=== PATIENT | male | born 1950 | race Caucasian/White ===

== ENCOUNTER 2018-01-26 15:37 | Inpatient (IN) | payer OTHER, MEDICARE ==
[2018-01-26] MEDS ORDERED: SODIUM CHLORIDE 0.9% 1000 ML INFUS.BAG IV ONE ×2 (15:47→18:21)
[2018-01-26] MEDS ORDERED: ALBUTEROL SO4 2.5/IPRATROPIUM 0.5 INH SOL 3 ML VIAL.NEB. NEB ONE ×6 (15:47→17:55)
--- NOTE | 2018-01-26 16:08 | PDOC ---
History of Present Illness - General Chief Complaint: Cold Symptoms Stated Complaint: coughing Time Seen by Provider: 01/26/18 15:45 - History of Present Illness Initial Comments: 01/26/18 16:07 The patient is a 67 year old male with a PMH of sarcoid (not currently on immunosuppressants/steroids), comes to the ED c/o cough and shortness of breath. Patient notes a 2-3 day h/o non-productive cough. Today, when he was trying to medicinal plant picker his grandson from the ground he felt short of breath prompting him to visit his PMD. Denies any chest pain, lightheadedness, diaphoresis, palpitations. No h/o YODER on exertion. Notes 8 year old grandson had bronchitis last week. Notes he was evaluated by his PMD Dr. Bruce earlier today who sent the patient to the ED for further evaluation and to r/o PNA. The patient denies abdominal pain, diarrhea/constipation, nausea/vomiting, dysuria/hematuria, numbness/tingling. Allergy: Sulfa Surgical: none reported Social: former smoker, denies other toxic habits PMD: Dr. Bruce Freelance Digital Project Manager: Dr. Palmer Past History - Past Medical History Allergies/Adverse Reactions: Allergies Allergy/AdvReac Type Severity Reaction Status Date / Time Sulfa (Sulfonamide Allergy Verified 01/26/18 16:38 Antibiotics) Home Medications: Ambulatory Orders NK [No Known Home Medication] 01/26/18 Anemia: No Asthma: No Cancer: No Cardiac Disorders: No CVA: No COPD: Yes (Hx of Sarcoidosis) CHF: No Dementia: No Diabetes: No GI Disorders: No Disorders: No HTN: No Hypercholesterolemia: No Liver Disease: No Seizures: No Thyroid Disease: No - Surgical History Abdominal Surgery: No Appendectomy: Yes Cardiac Surgery: No Cholecystectomy: No Lung Surgery: No Neurologic Surgery: No (CERVICAL CYST REMOVED) Orthopedic Surgery: Yes (Right Rotator Cuff Repair 04/2012-HAS BEEN ON ABX IN PAST-LARGE AMOUNT OF) - Suicide/Smoking/Psychosocial Hx Smoking History: Former smoker Have you smoked in the past 12 months: No If you are a former smoker, when did you quit?: 1996 Information on smoking cessation initiated: No Hx Alcohol Use: Yes Drug/Substance Use Hx: No Substance Use Type: Alcohol Hx Substance Use Treatment: No Review of Systems - Review of Systems Constitutional: No: Chills, Fever HEENTM: No: Blurred Vision, Double Vision Respiratory: Yes: Cough, Shortness of Breath. No: Orthopnea, Hemoptysis Cardiac (ROS): No: Chest Pain, Lightheadedness, Palpitations, Syncope ABD/GI: No: Constipated, Diarrhea, Nausea, Vomiting *Physical Exam - Vital Signs Last Vital Signs Temp Pulse Resp BP Pulse Ox 99.1 F 113 H 26 H 152/78 88 L 01/26/18 15:37 01/26/18 15:37 01/26/18 15:37 01/26/18 15:37 01/26/18 15:37 - Physical Exam General Appearance: Yes: Nourished, Appropriately Dressed HEENT: positive: Normal Voice, Hearing Grossly Normal Neck: positive: Trachea midline, Supple Respiratory/Chest: positive: Wheezing. negative: Respiratory Distress, Accessory Muscle Use Cardiovascular: positive: S1, S2 Gastrointestinal/Abdominal: positive: Soft. negative: Tender Extremity: positive: Normal Capillary Refill, Normal Inspection Integumentary: positive: Normal Color, Dry, Warm Neurologic: positive: Fully Oriented, Alert Heart Score/ECG Review - ECG Impressions Comment:: 01/26/18 19:05 Sinus Tach 102, no LICO/STD/TWI, good R wave progression V1-V6. Non-ischemic ECG ED Treatment Course - LABORATORY CBC & Chemistry Diagram: 01/30/18 08:00 01/30/18 08:00 Medical Decision Making - Medical Decision Making 01/26/18 16:08 67 year old male with a PMH of sarcoid c/o cough and dypsnea. SpO2 80's @ presentation. DDx include PNA, sarcoid flare, viral URI, less likely PE, ACS. Will obtain basic labs, blood cultures, lactic acid, CXR. Reassess ECG non-ischemic as documented in ECG section of EMR. 01/26/18 17:56 SpO2 93% on 2L Other VS stable S/p 2 Duo Nebs, scattered wheezes Will give additional Duo Neb + 125 solumedrol CXR shows increased nodular densities c/w sarcoidosis, no active consolidation, infiltrate. Case d/w patient's PMD agrees with admission 01/26/18 18:05 CBC shows no leukocytosis, CMP mild hyponatremia (131) - will monitor. VSS. UA pending Hospitalist paged for admission Patient admitted in inpatient hospitalist service for further evaluation. Clinical Impression: acute hypoxemic respiratory failure possibly 2/2 to sarcoid flare *DC/Admit/Observation/Transfer Diagnosis at time of Disposition: Cough - Discharge Dispostion Condition at time of disposition: Fair Decision to Admit order: Yes - Referrals - Patient Instructions - Post Discharge Activity
[2018-01-26] MEDS ORDERED: ACETAMINOPHEN INJECTION 100 ML IVPB ONE (16:23)
--- NOTE | 2018-01-26 16:26 | PDOC ---
Attending Attestation - Resident Resident Name: Tracey Arshad - ED Attending Attestation I have performed the following: I have examined & evaluated the patient, The case was reviewed & discussed with the resident, I agree w/resident's findings & plan, Exceptions are as noted - HPI HPI: 01/26/18 16:23 67 yo male with h/o sarcoid, not on any current medications, here today from [facility] pcp office for sob that began last pm. fever chills. no cp no n/v. does have mild sob. in office was noted to be febrile 101, hypoxic 85% on RA. given one duoneb and sent to ed for evaluation/ admission. - Physicial Exam PE: 01/26/18 16:25 awake alert lungs with bilat exp wheezing. shallow breath, no good airflow. heart reg tachycardia. no mrg. abd soft nt nd. ext wwp. no edema . no calf tenderness. nuero alert oriented x 3. - Medical Decision Making 01/26/18 16:26 pt with wheezing sob hypoxia and fever. differential pna, effusion, flu, bronchospasm from bronchitis. plan labs cultures. septic workup fever control duonebs. fluids cxr admit.
[2018-01-26] MEDS ORDERED: ACETAMINOPHEN 1000 MG/100 ML VIAL (NON FORMULARY) IVPB ONE (16:27)
[2018-01-26 16:39] LABS: BASO % 0.4 % (0-2.0); EOS % 0.2 % (0-4.5); HEMATOCRIT 43.8 % (35.4-49); LYMPH % 4.9 % (8-40); MCH 31.3 pg (25.7-33.7); MCHC 34.3 g/dl (32.0-35.9); MEAN CELL VOLUME 91.2 fl (80-96); MEAN PLT VOLUME 7.8 fl (7.5-11.1); MONO % 8.7 % (3.8-10.2); NEUT % 85.8 % (42.8-82.8); PLATELET COUNT 232 K/MM3 (134-434); RDW 13.1 % (11.9-15.9); WHITE BLOOD COUNT 10.6 K/mm3 (4.0-10.8)
[2018-01-26 16:51] LABS: ACTIVATED PTT 27.3 SECONDS (25.2-36.5)
[2018-01-26 16:55] LABS: INR 1.35 (0.82-1.09)
[2018-01-26 17:00] LABS: ALBUMIN 4.1 g/dl (3.5-5.0); ALK PHOS 67 U/L (32-92); ANION GAP 7 MMOL/L (8-16); BILIRUBIN,TOTAL 1.7 mg/dl (0.2-1.0); BLOOD UREA NITROGEN 25 mg/dl (7-18); CALCIUM 8.5 mg/dl (8.4-10.2); CHLORIDE 98 mmol/L (98-107); CO2 26 mmol/L (22-28); CREATININE 1.1 mg/dl (0.6-1.3); GLUCOSE,RANDOM 139 mg/dl (74-106); SGOT/AST 27 U/L (10-42); SGPT/ALT 23 U/L (10-40); SODIUM 131 mmol/L (136-145); TOT PROT 7.3 g/dl (6.4-8.3)
[2018-01-26] MEDS ORDERED: VANCOMYCIN 1 GRAM (PRE-DOCKED) 1,000 MG/250 ML BAG IVPB ONE (17:29)
[2018-01-26] MEDS ORDERED: PIPERACILLIN/TAZOB 3.375 GM 3.375 GM in DEXTROSE 5%-WATER - 50 ML IVPB ONE (17:30)
[2018-01-26] MEDS ORDERED: PIPERACILLIN/TAZOBACTAM 3.375 GM VIAL IVPB ONE (17:30)
[2018-01-26] MEDS ORDERED: VANCOMYCIN 1,000 MG VIAL (RESTRICTED TO ID ONLY) ONE (17:30)
[2018-01-26] MEDS ORDERED: methylPREDNISolone NA SUCC 125 MG/2 ML VIAL ONE (17:55)
[2018-01-26] MEDS ORDERED: methylPREDNISolone NA SUCC 125 MG/2 ML VIAL IVPUSH ONE (17:55)
[2018-01-26 18:35] LABS: VENOUS PC02 49.6 mmHg (38-52); VENOUS PH 7.35 (7.32-7.42); VENOUS PO2 30.9 mmHg (28-48)
[2018-01-26 19:41] LABS: URINE APPEARANCE Clear; URINE BILIRUBIN Negative (NEGATIVE); URINE COLOR Yellow; URINE GLUCOSE (UA) Negative (NEGATIVE); URINE KETONE 1+ (NEGATIVE); URINE LEUK ESTERASE Negative (NEGATIVE); URINE NITRITE Negative (NEGATIVE); URINE PROTEIN Trace (NEGATIVE); URINE UROBILINOGEN 0.2 (0.2-1.0)
[2018-01-26] MEDS: HEPARIN NA (PORCINE) 5,000 UNITS/ML 1ML VIAL SQ SCH (22:18)
[2018-01-26 23:52] VITALS: BMI 23.8
--- NOTE | 2018-01-27 01:00 | HP ---
CHIEF COMPLAINT: Cough and SOB PCP: Dr. Bruce Pediatric Hospitalist: Dr. Palmer HISTORY OF PRESENT ILLNESS: 67 year old male with a PMH significant for sarcoidosis and MRSA infection presented to the ED with SOB and cough. He started developing a cough a 2-3 days ago since being exposed to his 8 year old grandson who was just treated for confirmed pneumonia. His cough was non-productive and he doesn't think he had a fever. He has never had pneumonia in the past, he did receive the pna vaccine a few years ago. He was recently diagnosed with sarcoidosis and is followed by toe pounder Dr. Palmer. He went to see his PCP Dr. Bruce today who sent him to the ED. Upon arrival at the ED, temperature was 102 and O2 sat was 88%. He was given a dose of Vancomycin and Zosyn, Solumedrol, supplemental O2@ 2LPM, and received 2 nebulizer treatments. His O2 sat improved to 93% and he reports feeling somewhat better than when he was admitted. WBC and lactic acid WNL. Flu swab negative. CXR shows degenerative changes from one year ago. Tachycardia on ECG but otherwise unremarkable for ischemia. Denies dizziness, syncope, chest pain, palpitations, n/v/d. Recent Travel: No PAST MEDICAL HISTORY: Sarcoidosis MRSA infections PAST SURGICAL HISTORY: Right foot surgery for MRSA infection that had invaded the bone Social History: Retired, former construction stonemason. Smoking: Former, quit 30 years ago Alcohol: On weekends Drugs: Denies Family History: Father: Heart disease, in his 80s Mother: DM, age 77 Allergies Sulfa (Sulfonamide Antibiotics) Allergy (Verified 01/26/18 16:38) HOME MEDICATIONS: Home Medications Medication Instructions Recorded NK [No Known Home Medication] 01/26/18 REVIEW OF SYSTEMS CONSTITUTIONAL: (+) weight change, lost 20 lbs in the past year which he attributes to drinking 2 Tbs of apple cider vinegar before dinner. Absent: fever, chills, diaphoresis, generalized weakness, malaise, loss of appetite HEENT: Absent: rhinorrhea, nasal congestion, throat pain, throat swelling, difficulty swallowing, mouth swelling, ear pain, eye pain, visual changes CARDIOVASCULAR: Absent: chest pain, syncope, palpitations, irregular heart rate, lightheadedness , peripheral edema RESPIRATORY: (+) cough, shortness of breath Absent:dyspnea with exertion, orthopnea, wheezing, stridor, hemoptysis GASTROINTESTINAL: Absent: abdominal pain, abdominal distension, nausea, vomiting, diarrhea, constipation, melena, hematochezia GENITOURINARY: Absent: dysuria, frequency, urgency, hesitancy, hematuria, flank pain, genital pain MUSCULOSKELETAL: Absent: myalgia, arthralgia, joint swelling, back pain, neck pain SKIN: Absent: rash, itching, pallor HEMATOLOGIC/IMMUNOLOGIC: Absent: easy bleeding, easy bruising, lymphadenopathy, frequent infections ENDOCRINE: Absent: unexplained weight gain, unexplained weight loss, heat intolerance, cold intolerance NEUROLOGIC: Absent: headache, focal weakness or paresthesias, dizziness, unsteady gait, seizure, mental status changes, bladder or bowel incontinence PSYCHIATRIC: Absent: anxiety, depression, suicidal or homicidal ideation, hallucinations. PHYSICAL EXAMINATION Vital Signs - 24 hr 01/26/18 01/26/18 01/26/18 15:37 15:45 16:16 Temperature 99.1 F 102.5 F H Pulse Rate 113 H Pulse Rate [ Apical] Respiratory 26 H Rate Blood Pressure 152/78 Blood Pressure [Right Arm] O2 Sat by Pulse 88 L 96 Oximetry (%) 01/26/18 01/26/18 01/26/18 18:15 19:30 19:42 Temperature 99.7 F H 98.9 F Pulse Rate 108 H 109 H Pulse Rate [ 93 H 109 H Apical] Respiratory 22 H 20 16 Rate Blood Pressure 154/65 Blood Pressure 131/63 150/76 [Right Arm] O2 Sat by Pulse 94 L 92 L 93 L Oximetry (%) 01/26/18 19:59 Temperature 98.9 F Pulse Rate 108 H Pulse Rate [ Apical] Respiratory 20 Rate Blood Pressure 154/65 Blood Pressure [Right Arm] O2 Sat by Pulse 94 L Oximetry (%) GENERAL: Awake, alert, and fully oriented, in no acute distress. HEAD: Normal with no signs of trauma. EYES: Pupils equal, round and reactive to light, extraocular movements intact, sclera anicteric, conjunctiva clear. No lid lag. EARS, NOSE, THROAT: +NC, nares patent, oropharynx clear without exudates. Moist mucous membranes. NECK: Normal range of motion, supple without lymphadenopathy, JVD, or masses. LUNGS: Rhonchorous breath sounds, expiratory wheze, intermittent cough HEART: Tachycardic rate and regular rhythm, normal S1 and S2 without murmur, rub or gallop. ABDOMEN: Soft, nontender, not distended, normoactive bowel sounds, no guarding, no rebound, no masses. No hepatomegaly or splenomegaly. MUSCULOSKELETAL: Normal range of motion at all joints. No bony deformities or tenderness. No CVA tenderness. UPPER EXTREMITIES: 2+ pulses, warm, well-perfused. No cyanosis. No clubbing. No peripheral edema. LOWER EXTREMITIES: 2+ pulses, warm, well-perfused. No calf tenderness. No peripheral edema. NEUROLOGICAL: No facial droop, tongue midline Normal speech. Normal gait. PSYCHIATRIC: Cooperative. Good eye contact. Appropriate mood and affect. SKIN: Warm, dry, normal turgor, no rashes or lesions noted, normal capillary refill. Laboratory Results - last 24 hr 01/26/18 01/26/18 01/26/18 16:16 16:16 16:16 WBC 10.6 RBC 4.80 Hgb 15.0 Hct 43.8 MCV 91.2 MCH 31.3 MCHC 34.3 RDW 13.1 Plt Count 232 MPV 7.8 Absolute Neuts (auto) 9.2 Neutrophils % 85.8 H Lymphocytes % 4.9 L Monocytes % 8.7 Eosinophils % 0.2 Basophils % 0.4 PT with INR 15.0 H INR 1.35 H PTT (Actin FS) 27.3 VBG pH 7.35 POC VBG pCO2 49.6 POC VBG pO2 30.9 Mixed VBG HCO3 27.2 H Sodium Potassium Chloride Carbon Dioxide Anion Gap BUN Creatinine Creat Clearance w eGFR Random Glucose Lactic Acid Calcium Total Bilirubin AST ALT Alkaline Phosphatase Total Protein Albumin Urine Color Urine Appearance Urine pH Ur Specific [place] Urine Protein Urine Glucose (UA) Urine Ketones Urine Blood Urine Nitrite Urine Bilirubin Urine Urobilinogen Ur Leukocyte Esterase 01/26/18 01/26/18 01/26/18 16:16 16:16 19:11 WBC RBC Hgb Hct MCV MCH MCHC RDW Plt Count MPV Absolute Neuts (auto) Neutrophils % Lymphocytes % Monocytes % Eosinophils % Basophils % PT with INR INR PTT (Actin FS) VBG pH POC VBG pCO2 POC VBG pO2 Mixed VBG HCO3 Sodium 131 L Potassium 4.0 Chloride 98 Carbon Dioxide 26 Anion Gap 7 L BUN 25 H Creatinine 1.1 Creat Clearance w eGFR > 60 Random Glucose 139 H Lactic Acid 1.3 Calcium 8.5 Total Bilirubin 1.7 H AST 27 ALT 23 Alkaline Phosphatase 67 Total Protein 7.3 Albumin 4.1 Urine Color Yellow Urine Appearance Clear Urine pH 5.0 Ur Specific [place] 1.015 Urine Protein Trace Urine Glucose (UA) Negative Urine Ketones 1+ H Urine Blood Negative Urine Nitrite Negative Urine Bilirubin Negative Urine Urobilinogen 0.2 Ur Leukocyte Esterase Negative ECG Sinus Tachycardia Vent rate 102 QT/QTc 322/419 CXR Since 12/17/16 there are increased right perihilar and right infrahilar markings. There is a normal heart, prominent knob and coarse lung changes with some nodular densities. There are degenerative changes with wedging. ASSESSMENT/PLAN: 67 year old male with a PMH significant for sarcoidosis and MRSA infection presented to the ED with SOB and cough. Patient admitted for antibiotic treatment of PNA. CAP -Will start Ceftriaxone 1 gm IV and Azithromycin 500 mg IV now, and 2nd dose HS -Prednisone 60 mg qday -Duonebs QID and PRN -on 2LPM -Blood culture pending FEN --PO intake adequate --Electrolytes replete as indicated --Regular Diet DVT Prophylaxis --Heparin SQ Dispo: pt currently requires further inpatient care. FULL CODE Visit type - Emergency Visit Emergency Visit: Yes ED Registration Date: 01/26/18 Care time: The patient presented to the Emergency Department on the above date and was hospitalized for further evaluation of their emergent condition. - New Patient This patient is new to me today: No - Critical Care Critical Care patient: No
[2018-01-27] MEDS ORDERED: CEFTRIAXONE 1 GM/50 ML BAG IVPB ONE (02:10)
[2018-01-27] MEDS ORDERED: AZITHROMYCIN IVPB 500 MG/250 ML BAG IVPB ONE (02:11)
[2018-01-27] MEDS ORDERED: guaiFENesin/CODEINE 10 ML UNIT-DOSE CUPS PO ONE (04:48)
[2018-01-27] MEDS: HEPARIN NA (PORCINE) 5,000 UNITS/ML 1ML VIAL SQ SCH ×3 (05:20→22:01)
[2018-01-27] MEDS: ALBUTEROL SO4 2.5/IPRATROPIUM 0.5 INH SOL 3 ML VIAL.NEB. NEB SCH ×4 (08:28→19:59)
--- NOTE | 2018-01-27 08:28 | PN ---
Physical Exam: SUBJECTIVE: Patient seen and examined, reports ongoing cough and generalized weakness, tmax of 102.5 at 0800 OBJECTIVE: Patient is a 67 y/o male with a past medical history of sarcoidosis , patent was admitted from the emergency department for sepsis and pna Vital Signs Period Temp Pulse Resp BP Sys/Davis Pulse Ox Last 24 Hr 98.9 F-102.5 F 93-113 16-26 131-157/63-78 88-96 GENERAL: The patient is awake, alert, and fully oriented, in no acute distress. HEAD: Normal with no signs of trauma. EYES: PERRL, extraocular movements intact, sclera anicteric, conjunctiva clear. No ptosis. ENT: Ears normal, nares patent, oropharynx clear without exudates, moist mucous membranes. NECK: Trachea midline, full range of motion, supple. LUNGS: Breath sounds equal, clear to auscultation bilaterally, no wheezes, no crackles, no accessory muscle use. HEART: Regular rate and rhythm, S1, S2 without murmur, rub or gallop. ABDOMEN: Soft, nontender, nondistended, normoactive bowel sounds, no guarding, no rebound, no hepatosplenomegaly, no masses. EXTREMITIES: 2+ pulses, warm, well-perfused, no edema. NEUROLOGICAL: Cranial nerves II through XII grossly intact. Normal speech, gait not observed. PSYCH: Normal mood, normal affect. SKIN: Warm, dry, normal turgor, no rashes or lesions noted Laboratory Results - last 24 hr 01/26/18 01/26/18 01/26/18 16:16 16:16 16:16 WBC 10.6 RBC 4.80 Hgb 15.0 Hct 43.8 MCV 91.2 MCH 31.3 MCHC 34.3 RDW 13.1 Plt Count 232 MPV 7.8 Absolute Neuts (auto) 9.2 Neutrophils % 85.8 H Lymphocytes % 4.9 L Monocytes % 8.7 Eosinophils % 0.2 Basophils % 0.4 PT with INR 15.0 H INR 1.35 H PTT (Actin FS) 27.3 VBG pH 7.35 POC VBG pCO2 49.6 POC VBG pO2 30.9 Mixed VBG HCO3 27.2 H Sodium Potassium Chloride Carbon Dioxide Anion Gap BUN Creatinine Creat Clearance w eGFR Random Glucose Lactic Acid Calcium Total Bilirubin AST ALT Alkaline Phosphatase Total Protein Albumin Urine Color Urine Appearance Urine pH Ur Specific [place] Urine Protein Urine Glucose (UA) Urine Ketones Urine Blood Urine Nitrite Urine Bilirubin Urine Urobilinogen Ur Leukocyte Esterase 01/26/18 01/26/18 01/26/18 16:16 16:16 19:11 WBC RBC Hgb Hct MCV MCH MCHC RDW Plt Count MPV Absolute Neuts (auto) Neutrophils % Lymphocytes % Monocytes % Eosinophils % Basophils % PT with INR INR PTT (Actin FS) VBG pH POC VBG pCO2 POC VBG pO2 Mixed VBG HCO3 Sodium 131 L Potassium 4.0 Chloride 98 Carbon Dioxide 26 Anion Gap 7 L BUN 25 H Creatinine 1.1 Creat Clearance w eGFR > 60 Random Glucose 139 H Lactic Acid 1.3 Calcium 8.5 Total Bilirubin 1.7 H AST 27 ALT 23 Alkaline Phosphatase 67 Total Protein 7.3 Albumin 4.1 Urine Color Yellow Urine Appearance Clear Urine pH 5.0 Ur Specific [place] 1.015 Urine Protein Trace Urine Glucose (UA) Negative Urine Ketones 1+ H Urine Blood Negative Urine Nitrite Negative Urine Bilirubin Negative Urine Urobilinogen 0.2 Ur Leukocyte Esterase Negative Active Medications Generic Name Dose Route Start Last Admin Trade Name Satinderq PRN Reason Stop Dose Admin Albuterol/Ipratropium 1 amp 01/27/18 08:00 Duoneb - NEB RQID [facility] Heparin Sodium (Porcine) 5,000 unit 01/26/18 22:00 01/27/18 05:20 Heparin - SQ 5,000 unit TID [facility] Administration Azithromycin 500 mg in 250 mls @ 250 mls/hr 01/27/18 22:00 Zithromax 500mg Ivpb (Pre-Docked) IVPB [facility] Ceftriaxone Sodium 1 gm in 50 mls @ 200 mls/hr 01/27/18 22:00 Rocephin 1gm Ivpb (Pre-Docked) IVPB [facility] Protocol Prednisone 60 mg 01/27/18 10:00 Deltasone - PO DAILY [facility] Microbiology 01/27/18 10:45 Legionella Antigen - Final Urine For Antigen Detection Streptococcus pneumoniae Antigen (M - Final, negative 01/26/18 16:16 Influenza Types A,B Antigen - Final, negative Nasopharyngeal Swab - Final IMAGING CXR: increased right perihlar and infrahilar markings ASSESSMENT/PLAN: 1)pulm CAP sarcoid -continue Ceftriaxone 1 gm IV and Azithromycin 500 mg IV, urine antigens negative, pending blood and urine cultures now, and 2nd dose HS -start solumedrol with taper as appropriate -Duonebs QID and PRN - pending ct of chest - appreciate pulmonary input 2) sepsis - secondary to pna, trend wbc and fever curve - follow blood and urine antigens FEN --PO intake adequate --Electrolytes replete as indicated --Regular Diet DVT Prophylaxis --Heparin SQ Dispo: pt currently requires further inpatient care. FULL CODE Visit type - Emergency Visit Emergency Visit: Yes ED Registration Date: 01/26/18 Care time: The patient presented to the Emergency Department on the above date and was hospitalized for further evaluation of their emergent condition. - New Patient This patient is new to me today: Yes Date on this admission: 01/27/18 - Critical Care Critical Care patient: No - Discharge Referral Referred to [facility] Med P.C.: No
[2018-01-27 08:48] LABS: HEMATOCRIT 42.1 % (35.4-49); HEMOGLOBIN 14.4 GM/dl (11.7-16.9); MCH 31.5 pg (25.7-33.7); MCHC 34.1 g/dl (32.0-35.9); MEAN CELL VOLUME 92.3 fl (80-96); MEAN PLT VOLUME 8.1 fl (7.5-11.1); PLATELET COUNT 232 K/MM3 (134-434); RBC 4.57 M/mm3 (4.00-5.60); RDW 13.4 % (11.9-15.9)
[2018-01-27 08:54] LABS: ANION GAP 6 MMOL/L (8-16); BLOOD UREA NITROGEN 22 mg/dl (7-18); CALCIUM 8.6 mg/dl (8.4-10.2); CHLORIDE 104 mmol/L (98-107); CO2 26 mmol/L (22-28); GLUCOSE,RANDOM 168 mg/dl (74-106); POTASSIUM 4.2 mmol/L (3.5-5.1); SODIUM 136 mmol/L (136-145)
[2018-01-27] MEDS: methylPREDNISolone NA SUCC 40 MG/1 ML VIAL IVPUSH SCH ×3 (09:47→20:04)
--- NOTE | 2018-01-27 09:55 | PN ---
Progress Note (short form) - Note Progress Note: PULMONARY IMP ACUTE HYPOXEMIC RESPIRATORY AILURE PNEUMONIA ,POSSIBLE VIRAL SARCOID PLAN IV STEROIDS INHALED BRONCHODILATORS O2 CULTURES LEGIONELLA URINARY ANTIGEN CHEST CT ANTITUSSIVES DR WEISS Problem List - Problems (1) Acute hypoxemic respiratory failure Code(s): J96.01 - ACUTE RESPIRATORY FAILURE WITH HYPOXIA (2) Sarcoid Code(s): D86.9 - SARCOIDOSIS, UNSPECIFIED (3) Pneumonia Code(s): J18.9 - PNEUMONIA, UNSPECIFIED ORGANISM
[2018-01-27] MEDS ORDERED: AZITHROMYCIN IVPB 500 MG in DEXTROSE 5%-WATER - 250 ML IVPB SCH (10:00)
[2018-01-27] MEDS ORDERED: ACETAMINOPHEN 1000 MG/100 ML VIAL (NON FORMULARY) IVPB ONE (10:00)
[2018-01-27] MEDS ORDERED: CEFTRIAXONE 1 MG in DEXTROSE 5%-WATER - 50 ML IVPB SCH (10:00)
[2018-01-27] MEDS ORDERED: predniSONE 20 MG TABLET (UD) PO SCH (10:00)
--- NOTE | 2018-01-27 11:11 | CONS ---
DATE OF CONSULTATION: 01/27/2018 REFERRING PHYSICIAN: Tati Steele MD HISTORY: The patient is a 67-year-old white male with a past medical history of sarcoidosis diagnosed approximately 15 years ago by lymph node biopsy, history of borderline diabetes, cervical cysts, history of tobacco use quit in 1996 admitted to [facility] with the complaint of a 2- to 3- history of nonproductive cough, shortness of breath, and dyspnea on exertion. On the day of admission, the patient was trying to chicken picker his grandson. He started feeling increasing shortness of breath, cough, and bronchospasm. He presented to the emergency room with above. In the ER, he was found to be in moderate respiratory failure. He was noted to be febrile. He was placed on antibiotics, IV steroids, bronchodilators, and transferred to the medical floor for further management. Of note, his 8-year-old grandson had bronchitis approximately a week ago. He denies any hemoptysis. He denies any chest pain, nausea, vomiting, or diaphoresis. There is no history of occupational exposure to chemicals or fumes. There is no history of recent travel. PAST MEDICAL HISTORY: Includes sarcoidosis and borderline diabetes. REVIEW OF SYSTEMS: Positive shortness of breath, positive cough, positive chest congestion, positive fever, positive chills. No nausea, no vomiting, no abdominal pain. CURRENT MEDICATIONS: Include Solu-Medrol, acetaminophen, Zithromax, ceftriaxone, hepatitis subcutaneous, and DuoNeb. PHYSICAL EXAMINATION: General: The patient is a well-developed, well-nourished male awake and alert, dyspneic. Vital Signs: Temperature 102.3, O2 saturation 89% on nasal cannula 2 L, blood pressure 157/75, respiratory rate is 19. HEENT: Normocephalic and atraumatic. Neck: Supple. Heart: Regular S1, S2. Chest: Bilateral wheezes throughout. Abdomen: Soft. Bowel sounds positive. Extremities: No cyanosis or edema. LABORATORIES: WBC 13, hemoglobin 14.4, hematocrit 42.1 with a platelet count of 232,000. INR 1.35. Venous blood gas 7.35, PCO2 of 49, PO2 of 30, BUN 22, creatinine 1. Chest x-ray reveals increased perihilar markings on the right and some nodular densities bilaterally. Influenza screen negative. IMPRESSION: 1. Acute hypoxemic respiratory failure secondary to pneumonia. 2. Rule out acute viral bronchitis. 3. Sarcoidosis. PLAN: IV steroids. Inhaled bronchodilators. Supplemental O2. Antibiotic therapy. CT scan of the chest. Sputum for culture and sensitivity as well as blood culture and sensitivity. RADHA WEISS M.D. MINISTERIO/[id number]
--- NOTE | 2018-01-27 12:18 | EKG ---
Test Reason : Blood Pressure : / mmHG Vent. Rate : 102 BPM Atrial Rate : 102 BPM P-R Int : 174 ms QRS Dur : 080 ms QT Int : 322 ms P-R-T Axes : 078 079 070 degrees QTc Int : 419 ms POOR DATA QUALITY, INTERPRETATION MAY BE ADVERSELY AFFECTED SINUS TACHYCARDIA OTHERWISE NORMAL ECG WHEN COMPARED WITH ECG OF 21-OCT-2011 13:45, NO SIGNIFICANT CHANGE WAS FOUND Confirmed by TARAS AKINS, JUAN ([id number]) on 01/27/2018 12:18:29 PM Referred By: MD RIVER Confirmed By:JUAN GRAJEDA MD
[2018-01-27] MEDS: CEFTRIAXONE 1 GM/50 ML BAG IVPB SCH (13:39)
[2018-01-27] MEDS ORDERED: ACETAMINOPHEN 325 MG TABLET (FP) PO PRN (14:23)
[2018-01-27] MEDS ORDERED: AZITHROMYCIN IVPB 500 MG/250 ML BAG IVPB SCH (22:00)
[2018-01-27] MEDS: guaiFENesin/CODEINE 10 ML UNIT-DOSE CUPS PO PRN (22:00)
[2018-01-27] MEDS ORDERED: CEFTRIAXONE 1 GM/50 ML BAG IVPB SCH ×2 (22:00)
[2018-01-28] MEDS: methylPREDNISolone NA SUCC 40 MG/1 ML VIAL IVPUSH SCH ×4 (02:21→21:10)
[2018-01-28] MEDS: HEPARIN NA (PORCINE) 5,000 UNITS/ML 1ML VIAL SQ SCH ×3 (06:09→21:10)
--- NOTE | 2018-01-28 07:48 | PN ---
Progress Note, Physician History of Present Illness: PULMONARY ALERT,FEELING BETTER,LESS CONGESTED,LESS COUGH - Current Medication List Current Medications: Active Medications Acetaminophen (Tylenol -) 650 mg PO Q4H PRN PRN Reason: FEVER Albuterol/Ipratropium (Duoneb -) 1 amp NEB RQID [facility] Last Admin: 01/27/18 19:59 Dose: 1 amp Guaifenesin/Codeine Phosphate (Robitussin Ac -) 10 ml PO Q8H PRN PRN Reason: COUGH Last Admin: 01/27/18 22:00 Dose: 10 ml Heparin Sodium (Porcine) (Heparin -) 5,000 unit SQ TID [facility] Last Admin: 01/28/18 06:09 Dose: 5,000 unit Azithromycin (Zithromax 500mg Ivpb (Pre-Docked)) 500 mg in 250 mls @ 250 mls/ hr IVPB DAILY [facility] Ceftriaxone Sodium (Rocephin 1gm Ivpb (Pre-Docked)) 1 gm in 50 mls @ 100 mls/ hr IVPB DAILY [facility]; Protocol Last Admin: 01/27/18 13:39 Dose: 100 mls/hr Methylprednisolone Sodium Succinate (Solu-Medrol -) 40 mg IVPUSH Q6H-IV [facility] Last Admin: 01/28/18 02:21 Dose: 40 mg - Objective Vital Signs: Vital Signs Temperature 98.2 F 01/28/18 06:00 Pulse Rate 89 01/28/18 06:00 Respiratory Rate 20 01/28/18 06:00 Blood Pressure 140/75 01/28/18 06:00 O2 Sat by Pulse Oximetry (%) 95 01/28/18 06:00 Constitutional: Yes: Well Nourished, Calm Eyes: Yes: WNL HENT: Yes: WNL Neck: Yes: WNL Cardiovascular: Yes: Regular Rate and Rhythm, S1, S2 Respiratory: Yes: Wheezes (LESS WHEEZES BILATERALLY) Gastrointestinal: Yes: Normal Bowel Sounds, Soft Extremities: Yes: WNL Edema: No Labs: CBC, BMP - ....Imaging Cat Scan: Report Reviewed, Image Reviewed Problem List - Problems (1) Acute hypoxemic respiratory failure Code(s): J96.01 - ACUTE RESPIRATORY FAILURE WITH HYPOXIA (2) Sarcoid Code(s): D86.9 - SARCOIDOSIS, UNSPECIFIED (3) Pneumonia Code(s): J18.9 - PNEUMONIA, UNSPECIFIED ORGANISM Assessment/Plan IMP ACUTE HYPOXEMIC RESPIRATORY AILURE BILATERAL PNEUMONIA SARCOID PLAN IV STEROIDS SAME DOSE INHALED BRONCHODILATORS O2 ANTITUSSIVES DR WEISS Problem List - Problems (1) Acute hypoxemic respiratory failure Code(s): J96.01 - ACUTE RESPIRATORY FAILURE WITH HYPOXIA (2) Sarcoid Code(s): D86.9 - SARCOIDOSIS, UNSPECIFIED (3) Pneumonia Code(s): J18.9 - PNEUMONIA, UNSPECIFIED ORGANISM
[2018-01-28] MEDS: ALBUTEROL SO4 2.5/IPRATROPIUM 0.5 INH SOL 3 ML VIAL.NEB. NEB SCH ×4 (08:00→21:10)
--- NOTE | 2018-01-28 08:13 | PN ---
Physical Exam: SUBJECTIVE: Patient seen and examined, reports feeling less short of breath, does report persistent cough OBJECTIVE: Patient is a 67 y/o male with a past medical history of sarcoidosis, patent was admitted from the emergency department for sepsis and pna Vital Signs Period Temp Pulse Resp BP Sys/Davis Pulse Ox Last 24 Hr 97.9 F-102.3 F 86-102 19-22 114-140/44-75 90-96 GENERAL: The patient is awake, alert, and fully oriented, in no acute distress. HEAD: Normal with no signs of trauma. EYES: PERRL, extraocular movements intact, sclera anicteric, conjunctiva clear. No ptosis. ENT: Ears normal, nares patent, oropharynx clear without exudates, moist mucous membranes. NECK: Trachea midline, full range of motion, supple. LUNGS: Breath sounds equal, course rhonchi to apexes, crackles to bases, no wheezes, no accessory muscle use. HEART: Regular rate and rhythm, S1, S2 without murmur, rub or gallop. ABDOMEN: Soft, nontender, nondistended, normoactive bowel sounds, no guarding, no rebound, no hepatosplenomegaly, no masses. EXTREMITIES: 2+ pulses, warm, well-perfused, no edema. NEUROLOGICAL: Cranial nerves II through XII grossly intact. Normal speech, gait not observed. PSYCH: Normal mood, normal affect. SKIN: Warm, dry, normal turgor, no rashes or lesions noted Laboratory Results - last 24 hr 01/27/18 01/27/18 07:55 07:55 WBC 13.0 H RBC 4.57 Hgb 14.4 Hct 42.1 MCV 92.3 MCH 31.5 MCHC 34.1 RDW 13.4 Plt Count 232 MPV 8.1 Sodium 136 Potassium 4.2 Chloride 104 Carbon Dioxide 26 Anion Gap 6 L BUN 22 H Creatinine 1.0 Creat Clearance w eGFR > 60 Random Glucose 168 H D Calcium 8.6 Active Medications Generic Name Dose Route Start Last Admin Trade Name Freq PRN Reason Stop Dose Admin Acetaminophen 650 mg 01/27/18 14:23 Tylenol - PO Q4H PRN FEVER Albuterol/Ipratropium 1 amp 01/27/18 08:00 01/27/18 19:59 Duoneb - NEB 1 amp RQID [facility] Administration Guaifenesin/Codeine Phosphate 10 ml 01/27/18 09:56 01/27/18 22:00 Robitussin Ac - PO 10 ml Q8H PRN Administration COUGH Heparin Sodium (Porcine) 5,000 unit 01/26/18 22:00 01/28/18 06:09 Heparin - SQ 5,000 unit TID [facility] Administration Azithromycin 500 mg in 250 mls @ 250 mls/hr 01/28/18 10:00 Zithromax 500mg Ivpb (Pre-Docked) IVPB DAILY [facility] Ceftriaxone Sodium 1 gm in 50 mls @ 100 mls/hr 01/27/18 13:30 01/27/18 13:39 Rocephin 1gm Ivpb (Pre-Docked) IVPB 100 mls/hr DAILY [facility] Administration Protocol Methylprednisolone Sodium Succinate 40 mg 01/27/18 09:45 01/28/18 02:21 Solu-Medrol - IVPUSH 40 mg Q6H-IV [facility] Administration Microbiology 01/26/18 19:11 Urine - Urine Clean Catch Urine Culture - Final NO GROWTH OBTAINED 01/26/18 16:26 Blood - Peripheral Venous Blood Culture - Preliminary NO GROWTH OBTAINED AFTER 24 HOURS, INCUBATION TO CONTINUE FOR 4 DAYS. 01/26/18 16:16 Blood - Peripheral Venous Blood Culture - Preliminary NO GROWTH OBTAINED AFTER 24 HOURS, INCUBATION TO CONTINUE FOR 4 DAYS. 01/27/18 10:45 Urine For Antigen Detection Legionella Antigen - Final, negative 01/27/18 10:45 Urine For Antigen Detection Streptococcus pneumoniae Antigen (M - Final, negative 01/26/18 16:16 Nasopharyngeal Swab Influenza Types A,B Antigen - Final 01/26/18 16:16 Nasopharyngeal Swab - Final IMAGING CXR: increased right perihlar and infrahilar markings ct of chest: Consolidation/atelectasis in the left lower lobe, Right lower lobe consolidation/atelectasis, bilateral pulmonary nodules measuring 1 cm ASSESSMENT/PLAN: 1)pulm CAP sarcoid -continue Ceftriaxone 1 gm IV and Azithromycin 500 mg IV day 2 - wheezing resolved, will decrease solumedrol to tid appropriate - Duonebs QID and PRN - pulmonary consulted and following 2) sepsis - secondary to pna,Low-grade temperature noted, leukocytosis is noted however patient is on steroids, continue to trend - Urine and blood culture negative, Pending sputum culture FEN --PO intake adequate --Electrolytes replete as indicated --Regular Diet DVT Prophylaxis --Heparin SQ Dispo: pt currently requires further inpatient care. FULL CODE Visit type - Emergency Visit Emergency Visit: Yes ED Registration Date: 01/26/18 Care time: The patient presented to the Emergency Department on the above date and was hospitalized for further evaluation of their emergent condition. - New Patient This patient is new to me today: No - Critical Care Critical Care patient: No - Discharge Referral Referred to [facility] Med P.C.: No
[2018-01-28 08:45] LABS: HEMATOCRIT 39.5 % (35.4-49); HEMOGLOBIN 13.5 GM/dl (11.7-16.9); LYMPH % 4.1 % (8-40); MCH 31.9 pg (25.7-33.7); MCHC 34.2 g/dl (32.0-35.9); MEAN CELL VOLUME 93.2 fl (80-96); MEAN PLT VOLUME 8.2 fl (7.5-11.1); MONO % 2.6 % (3.8-10.2); NEUT % 93.3 % (42.8-82.8); PLATELET COUNT 244 K/MM3 (134-434); RBC 4.24 M/mm3 (4.00-5.60); RDW 13.2 % (11.9-15.9)
[2018-01-28 08:55] LABS: ALBUMIN 3.3 g/dl (3.5-5.0); ALK PHOS 55 U/L (32-92); ANION GAP 6 MMOL/L (8-16); BILIRUBIN,TOTAL 0.7 mg/dl (0.2-1.0); BLOOD UREA NITROGEN 29 mg/dl (7-18); CALCIUM 8.5 mg/dl (8.4-10.2); CHLORIDE 105 mmol/L (98-107); CO2 25 mmol/L (22-28); CREATININE 0.9 mg/dl (0.6-1.3); GLUCOSE,RANDOM 209 mg/dl (74-106); MAGNESIUM 2.2 mg/dL (1.8-2.4); PHOSPHOROUS 2.7 mg/dl (2.5-4.6); POTASSIUM 4.1 mmol/L (3.5-5.1); SGOT/AST 33 U/L (10-42); SGPT/ALT 25 U/L (10-40); SODIUM 136 mmol/L (136-145); TOT PROT 6.4 g/dl (6.4-8.3)
[2018-01-28] MEDS: CEFTRIAXONE 1 GM/50 ML BAG IVPB SCH (10:08)
[2018-01-28] MEDS: AZITHROMYCIN IVPB 500 MG/250 ML BAG IVPB SCH (10:09)
[2018-01-28] MEDS: LACTOBACILLUS ACIDOPHILUS 1 TABLET PO SCH (13:00)
[2018-01-28] MEDS: guaiFENesin/CODEINE 10 ML UNIT-DOSE CUPS PO PRN (21:28)
[2018-01-29] MEDS: methylPREDNISolone NA SUCC 40 MG/1 ML VIAL IVPUSH SCH ×4 (03:00→21:50)
[2018-01-29] MEDS: HEPARIN NA (PORCINE) 5,000 UNITS/ML 1ML VIAL SQ SCH ×3 (06:28→21:33)
[2018-01-29] MEDS: ALBUTEROL SO4 2.5/IPRATROPIUM 0.5 INH SOL 3 ML VIAL.NEB. NEB SCH ×4 (08:44→21:33)
[2018-01-29 08:48] LABS: BASO % 0.1 % (0-2.0); EOS % 0.1 % (0-4.5); HEMATOCRIT 38.6 % (35.4-49); HEMOGLOBIN 13.1 GM/dl (11.7-16.9); LYMPH % 4.5 % (8-40); MCH 31.5 pg (25.7-33.7); MEAN CELL VOLUME 92.6 fl (80-96); MEAN PLT VOLUME 8.1 fl (7.5-11.1); MONO % 3.7 % (3.8-10.2); NEUT % 91.6 % (42.8-82.8); PLATELET COUNT 245 K/MM3 (134-434); RBC 4.17 M/mm3 (4.00-5.60); RDW 13.2 % (11.9-15.9); WHITE BLOOD COUNT 12.4 K/mm3 (4.0-10.8)
[2018-01-29 09:06] LABS: ANION GAP 8 MMOL/L (8-16); BLOOD UREA NITROGEN 28 mg/dl (7-18); CALCIUM 8.5 mg/dl (8.4-10.2); CHLORIDE 104 mmol/L (98-107); CO2 25 mmol/L (22-28); CREATININE 0.9 mg/dl (0.6-1.3); GLUCOSE,RANDOM 203 mg/dl (74-106); MAGNESIUM 2.2 mg/dL (1.8-2.4); PHOSPHOROUS 3.3 mg/dl (2.5-4.6); POTASSIUM 4.4 mmol/L (3.5-5.1); SODIUM 137 mmol/L (136-145)
[2018-01-29] MEDS: AZITHROMYCIN IVPB 500 MG/250 ML BAG IVPB SCH (09:34)
[2018-01-29] MEDS: CEFTRIAXONE 1 GM/50 ML BAG IVPB SCH (09:34)
[2018-01-29] MEDS: LACTOBACILLUS ACIDOPHILUS 1 TABLET PO SCH (09:34)
[2018-01-29] MEDS ORDERED: methylPREDNISolone NA SUCC 40 MG/1 ML VIAL IVPUSH SCH (11:15)
--- NOTE | 2018-01-29 17:08 | PN ---
Progress Note (short form) - Note Progress Note: PULMONARY States breathing is better but still with cough and wheezing. No fevers or chills. Vital Signs Period Temp Pulse Resp BP Sys/Davis Pulse Ox Last 24 Hr 97.9 F-98.4 F 81-101 17-20 146-167/67-85 92-96 Gen: NAD at rest Heart: RRR Lung: scattered rhonchi, wheezes Abd: soft, nontender Ext: no edema CBC, BMP 01/29/18 07:20 01/29/18 07:20 Active Medications Acetaminophen (Tylenol -) 650 mg PO Q4H PRN PRN Reason: FEVER Albuterol/Ipratropium (Duoneb -) 1 amp NEB RQID [facility] Last Admin: 01/29/18 12:00 Dose: 1 amp Guaifenesin/Codeine Phosphate (Robitussin Ac -) 10 ml PO Q8H PRN PRN Reason: COUGH Last Admin: 01/28/18 21:28 Dose: 10 ml Heparin Sodium (Porcine) (Heparin -) 5,000 unit SQ TID [facility] Last Admin: 01/29/18 14:48 Dose: 5,000 unit Azithromycin (Zithromax 500mg Ivpb (Pre-Docked)) 500 mg in 250 mls @ 250 mls/ hr IVPB DAILY [facility] Last Admin: 01/29/18 09:34 Dose: 250 mls/hr Ceftriaxone Sodium (Rocephin 1gm Ivpb (Pre-Docked)) 1 gm in 50 mls @ 100 mls/ hr IVPB DAILY [facility]; Protocol Last Admin: 01/29/18 09:34 Dose: 100 mls/hr Lactobacillus Acidophilus (Bacid -) 1 tab PO DAILY [facility] Last Admin: 01/29/18 09:34 Dose: 1 tab Methylprednisolone Sodium Succinate (Solu-Medrol -) 40 mg IVPUSH Q8H [facility] Last Admin: 01/29/18 14:49 Dose: 40 mg A/P Acute Hypoxic Respiratory Failure Acute COPD Exacerbation Sarcoidosis Pneumonia - agree with medrol taper - inhaled bronchodilators standing and prn - O2 to keep SpO2 >90% - continue antibiotics - when ready for discharge will need to check ambulatory SpO2 on room air to assess for home O2 - DVT prophylaxis
--- NOTE | 2018-01-29 23:10 | PN ---
Physical Exam: SUBJECTIVE: Patient seen and examined. OBJECTIVE: Vital Signs Period Temp Pulse Resp BP Sys/Davis Pulse Ox Last 24 Hr 97.8 F-98.2 F 70-90 18-20 152-167/62-85 92-96 GENERAL: The patient is awake, alert, and fully oriented, in no acute distress. LUNGS: Diffuse mild expiratory wheezing HEART: Regular rate and rhythm, S1, S2 ABDOMEN: Soft, nontender, nondistended EXTREMITIES: 2+ pulses, warm, well-perfused, no edema. NEUROLOGICAL: Cranial nerves II through XII grossly intact. Normal speech. Laboratory Results - last 24 hr 01/29/18 01/29/18 07:20 07:20 WBC 12.4 H RBC 4.17 Hgb 13.1 Hct 38.6 MCV 92.6 MCH 31.5 MCHC 34.0 RDW 13.2 Plt Count 245 MPV 8.1 Absolute Neuts (auto) 11.3 Neutrophils % 91.6 H Lymphocytes % 4.5 L Monocytes % 3.7 L Eosinophils % 0.1 D Basophils % 0.1 D Sodium 137 Potassium 4.4 Chloride 104 Carbon Dioxide 25 Anion Gap 8 BUN 28 H Creatinine 0.9 Creat Clearance w eGFR > 60 Random Glucose 203 H Calcium 8.5 Phosphorus 3.3 D Magnesium 2.2 Active Medications Generic Name Dose Route Start Last Admin Trade Name Freq PRN Reason Stop Dose Admin Acetaminophen 650 mg 01/27/18 14:23 Tylenol - PO Q4H PRN FEVER Albuterol/Ipratropium 1 amp 01/27/18 08:00 01/29/18 21:33 Duoneb - NEB 1 amp RQID [facility] Administration Guaifenesin/Codeine Phosphate 10 ml 01/27/18 09:56 01/28/18 21:28 Robitussin Ac - PO 10 ml Q8H PRN Administration COUGH Heparin Sodium (Porcine) 5,000 unit 01/26/18 22:00 01/29/18 21:33 Heparin - SQ 5,000 unit TID [facility] Administration Azithromycin 500 mg in 250 mls @ 250 mls/hr 01/28/18 10:00 01/29/18 09:34 Zithromax 500mg Ivpb (Pre-Docked) IVPB 250 mls/hr DAILY [facility] Administration Ceftriaxone Sodium 1 gm in 50 mls @ 100 mls/hr 01/27/18 13:30 01/29/18 09:34 Rocephin 1gm Ivpb (Pre-Docked) IVPB 100 mls/hr DAILY [facility] Administration Protocol Lactobacillus Acidophilus 1 tab 01/28/18 12:30 01/29/18 09:34 Bacid - PO 1 tab DAILY [facility] Administration Methylprednisolone Sodium Succinate 40 mg 01/29/18 14:38 01/29/18 21:50 Solu-Medrol - IVPUSH 40 mg Q8H [facility] Administration ASSESSMENT/PLAN 67 year-old male with a PMH significant for sarcoidosis admitted for sepsis secondary to pneumonia. Community acquired pneumonia --CT chest: LLL and RLL pneumonia --afebrile, mild leukocytosis --continue IV steroids --continue azithro and ceftriaxone --continue duonebs Sarcoidosis --stable Pulmonary nodules --needs outpatient followup DVT prophylaxis: subq heparin Dispo: continues to require inpatient care. Full code. Visit type - Emergency Visit Emergency Visit: Yes ED Registration Date: 01/26/18 Care time: The patient presented to the Emergency Department on the above date and was hospitalized for further evaluation of their emergent condition. - New Patient This patient is new to me today: Yes Date on this admission: 01/29/18 - Critical Care Critical Care patient: No
[2018-01-30] MEDS: HEPARIN NA (PORCINE) 5,000 UNITS/ML 1ML VIAL SQ SCH ×3 (06:32→21:08)
[2018-01-30] MEDS: methylPREDNISolone NA SUCC 40 MG/1 ML VIAL IVPUSH SCH ×2 (06:32→21:09)
[2018-01-30] MEDS: ALBUTEROL SO4 2.5/IPRATROPIUM 0.5 INH SOL 3 ML VIAL.NEB. NEB SCH ×4 (08:14→21:09)
[2018-01-30] MEDS: LACTOBACILLUS ACIDOPHILUS 1 TABLET PO SCH (09:15)
[2018-01-30] MEDS: CEFTRIAXONE 1 GM/50 ML BAG IVPB SCH (09:15)
--- NOTE | 2018-01-30 09:25 | PN ---
Physical Exam: SUBJECTIVE: Patient seen and examined. Pt reports feeling better, c/o intermittent dry cough, denies cp, sob, palpitations, abdominal pain, N/V/D or urinary symptoms. OBJECTIVE: Vital Signs Period Temp Pulse Resp BP Sys/Davis Pulse Ox Last 24 Hr 97.8 F-98.2 F 66-90 18-18 147-157/62-72 92-97 GENERAL: The patient is awake, alert, and fully oriented, in no acute distress. HEAD: Normal with no signs of trauma. EYES: PERRL, extraocular movements intact, sclera anicteric, conjunctiva clear. No ptosis. ENT: Ears normal, nares patent, oropharynx clear without exudates, moist mucous membranes. NECK: Trachea midline, full range of motion, supple. LUNGS: Breath sounds equal, clear to auscultation bilaterally, no wheezes, no crackles, no accessory muscle use. HEART: Regular rate and rhythm, S1, S2 without murmur, rub or gallop. ABDOMEN: Soft, nontender, nondistended, normoactive bowel sounds, no guarding, no rebound, no hepatosplenomegaly, no masses. EXTREMITIES: 2+ pulses, warm, well-perfused, no edema. NEUROLOGICAL: Cranial nerves II through XII grossly intact. Normal speech, gait not observed. PSYCH: Normal mood, normal affect. SKIN: Warm, dry, normal turgor, no rashes or lesions noted Active Medications Generic Name Dose Route Start Last Admin Trade Name Freq PRN Reason Stop Dose Admin Acetaminophen 650 mg 01/27/18 14:23 Tylenol - PO Q4H PRN FEVER Albuterol/Ipratropium 1 amp 01/27/18 08:00 01/30/18 08:14 Duoneb - NEB 1 amp RQID [facility] Administration Guaifenesin/Codeine Phosphate 10 ml 01/27/18 09:56 01/28/18 21:28 Robitussin Ac - PO 10 ml Q8H PRN Administration COUGH Heparin Sodium (Porcine) 5,000 unit 01/26/18 22:00 01/30/18 06:32 Heparin - SQ 5,000 unit TID [facility] Administration Azithromycin 500 mg in 250 mls @ 250 mls/hr 01/28/18 10:00 01/29/18 09:34 Zithromax 500mg Ivpb (Pre-Docked) IVPB 250 mls/hr DAILY [facility] Administration Ceftriaxone Sodium 1 gm in 50 mls @ 100 mls/hr 01/27/18 13:30 01/30/18 09:15 Rocephin 1gm Ivpb (Pre-Docked) IVPB 100 mls/hr DAILY [facility] Administration Protocol Lactobacillus Acidophilus 1 tab 01/28/18 12:30 01/30/18 09:15 Bacid - PO 1 tab DAILY [facility] Administration Methylprednisolone Sodium Succinate 40 mg 01/29/18 14:38 01/30/18 06:32 Solu-Medrol - IVPUSH 40 mg Q8H [facility] Administration IMAGING CXR: increased right perihlar and infrahilar markings CT of chest: Consolidation/atelectasis in the left lower lobe, Right lower lobe consolidation/atelectasis, bilateral pulmonary nodules measuring 1 cm Microbiology 01/26/18 16:26 Blood Culture - Preliminary Blood - Peripheral Venous NO GROWTH OBTAINED AFTER 72 HOURS, INCUBATION TO CONTINUE FOR 2 DAYS. 01/26/18 16:16 Blood Culture - Preliminary Blood - Peripheral Venous NO GROWTH OBTAINED AFTER 72 HOURS, INCUBATION TO CONTINUE FOR 2 DAYS. ASSESSMENT/PLAN: This is a 67 year-old male with a PMH significant for COPD, ex- smoker and Sarcoidosis, admitted for sepsis secondary to pneumonia. *Community acquired pneumonia -CT chest: LLL and RLL pneumonia - afebrile with leukocytosis trending down - pul following -will cont on Azithro and ceftriaxone - will cont on Neb tx and cough med - Influenza/ Legionella and BC - neg - Sputum culture pending * COPD exacerbation -on Solumedrol * Hyperglycemia, no reported hx of DM, may due to steroid use - will check Hgb Alc - FS AC& HS *HX of Sarcoidosis-stable *Pulmonary nodules -needs outpatient followup DVT prophylaxis: Heparin SQ Dispo: Continues to require inpatient care. Full code. Visit type - Emergency Visit Emergency Visit: Yes ED Registration Date: 01/26/18 Care time: The patient presented to the Emergency Department on the above date and was hospitalized for further evaluation of their emergent condition. - New Patient This patient is new to me today: Yes Date on this admission: 01/30/18 - Critical Care Critical Care patient: No
[2018-01-30 09:31] LABS: BASO % 0.1 % (0-2.0); HEMATOCRIT 39.2 % (35.4-49); HEMOGLOBIN 12.8 GM/dl (11.7-16.9); LYMPH % 6.6 % (8-40); MCH 30.4 pg (25.7-33.7); MCHC 32.7 g/dl (32.0-35.9); MEAN CELL VOLUME 92.9 fl (80-96); MEAN PLT VOLUME 8.4 fl (7.5-11.1); MONO % 4.2 % (3.8-10.2); NEUT % 89.1 % (42.8-82.8); PLATELET COUNT 262 K/MM3 (134-434); RBC 4.22 M/mm3 (4.00-5.60); RDW 13.6 % (11.9-15.9); WHITE BLOOD COUNT 11.9 K/mm3 (4.0-10.8)
[2018-01-30 09:43] LABS: ALBUMIN 2.9 g/dl (3.5-5.0); ALK PHOS 53 U/L (32-92); ANION GAP 10 MMOL/L (8-16); BILIRUBIN,TOTAL 0.7 mg/dl (0.2-1.0); BLOOD UREA NITROGEN 28 mg/dl (7-18); CALCIUM 8.3 mg/dl (8.4-10.2); CHLORIDE 103 mmol/L (98-107); CO2 24 mmol/L (22-28); CREATININE 0.8 mg/dl (0.6-1.3); GLUCOSE,RANDOM 233 mg/dl (74-106); MAGNESIUM 2.2 mg/dL (1.8-2.4); POTASSIUM 4.2 mmol/L (3.5-5.1); SGOT/AST 30 U/L (10-42); SGPT/ALT 43 U/L (10-40); SODIUM 137 mmol/L (136-145); TOT PROT 5.5 g/dl (6.4-8.3)
[2018-01-30] MEDS: AZITHROMYCIN IVPB 500 MG/250 ML BAG IVPB SCH (10:12)
[2018-01-30] MEDS: FAMOTIDINE 20 MG TABLET PO SCH ×2 (12:04→21:08)
--- NOTE | 2018-01-30 15:19 | PN ---
Progress Note (short form) - Note Progress Note: PULMONARY Breathing continues to improve but still with some cough and wheezing. No fevers or chills. Vital Signs Period Temp Pulse Resp BP Sys/Davis Pulse Ox Last 24 Hr 97.8 F-98.4 F 66-91 18-18 147-166/62-70 93-97 Gen: NAD at rest Heart: RRR Lung: scattered rhonchi, wheezes Abd: soft, nontender Ext: no edema CBC, BMP 01/30/18 08:00 01/30/18 08:00 Active Medications Acetaminophen (Tylenol -) 650 mg PO Q4H PRN PRN Reason: FEVER Albuterol/Ipratropium (Duoneb -) 1 amp NEB RQID [facility] Last Admin: 01/30/18 12:47 Dose: 1 amp Famotidine (Pepcid -) 20 mg PO BID [facility] Last Admin: 01/30/18 12:04 Dose: 20 mg Heparin Sodium (Porcine) (Heparin -) 5,000 unit SQ TID [facility] Last Admin: 01/30/18 14:49 Dose: 5,000 unit Azithromycin (Zithromax 500mg Ivpb (Pre-Docked)) 500 mg in 250 mls @ 250 mls/ hr IVPB DAILY [facility] Last Admin: 01/30/18 10:12 Dose: 250 mls/hr Ceftriaxone Sodium (Rocephin 1gm Ivpb (Pre-Docked)) 1 gm in 50 mls @ 100 mls/ hr IVPB DAILY [facility]; Protocol Last Admin: 01/30/18 09:15 Dose: 100 mls/hr Lactobacillus Acidophilus (Bacid -) 1 tab PO DAILY [facility] Last Admin: 01/30/18 09:15 Dose: 1 tab Methylprednisolone Sodium Succinate (Solu-Medrol -) 40 mg IVPUSH BID [facility] A/P Acute Hypoxic Respiratory Failure Acute COPD Exacerbation Sarcoidosis Pneumonia - continue medrol taper, can likely change to PO prednisone 40mg daily and taper as outpt - inhaled bronchodilators standing and prn - O2 to keep SpO2 >90% - continue antibiotics - check ambulatory SpO2 on room air to assess for home O2 - DVT prophylaxis
[2018-01-30] MEDS ORDERED: INSULIN (NOVOLOG) ASPART 100 UNITS/ML 10ML VIAL ONE (21:43)
[2018-01-30] MEDS: INSULIN SLIDING SCALE (NOVOLOG) 1 VIAL SQ SCH (21:47)
[2018-01-31] MEDS: HEPARIN NA (PORCINE) 5,000 UNITS/ML 1ML VIAL SQ SCH (05:59)
[2018-01-31] MEDS: INSULIN SLIDING SCALE (NOVOLOG) 1 VIAL SQ SCH ×2 (06:50→11:48)
[2018-01-31 07:59] VITALS: BP 149/70; PULSE 61; TEMP 97.6
[2018-01-31] MEDS: ALBUTEROL SO4 2.5/IPRATROPIUM 0.5 INH SOL 3 ML VIAL.NEB. NEB SCH ×2 (09:00→11:48)
[2018-01-31] MEDS: LACTOBACILLUS ACIDOPHILUS 1 TABLET PO SCH (09:38)
[2018-01-31] MEDS: AZITHROMYCIN IVPB 500 MG/250 ML BAG IVPB SCH (09:39)
[2018-01-31] MEDS: methylPREDNISolone NA SUCC 40 MG/1 ML VIAL IVPUSH SCH (09:39)
[2018-01-31] MEDS: CEFTRIAXONE 1 GM/50 ML BAG IVPB SCH (09:39)
[2018-01-31] MEDS: FAMOTIDINE 20 MG TABLET PO SCH (09:39)
--- NOTE | 2018-01-31 10:11 | PN ---
Progress Note, Physician History of Present Illness: pulmonary alert,feeling better,dyspnea improved - Current Medication List Current Medications: Active Medications Acetaminophen (Tylenol -) 650 mg PO Q4H PRN PRN Reason: FEVER Albuterol/Ipratropium (Duoneb -) 1 amp NEB RQID [facility] Last Admin: 01/31/18 09:00 Dose: 1 amp Famotidine (Pepcid -) 20 mg PO BID [facility] Last Admin: 01/31/18 09:39 Dose: 20 mg Heparin Sodium (Porcine) (Heparin -) 5,000 unit SQ TID [facility] Last Admin: 01/31/18 05:59 Dose: 5,000 unit Azithromycin (Zithromax 500mg Ivpb (Pre-Docked)) 500 mg in 250 mls @ 250 mls/ hr IVPB DAILY [facility] Last Admin: 01/31/18 09:39 Dose: 250 mls/hr Ceftriaxone Sodium (Rocephin 1gm Ivpb (Pre-Docked)) 1 gm in 50 mls @ 100 mls/ hr IVPB DAILY [facility]; Protocol Last Admin: 01/31/18 09:39 Dose: 100 mls/hr Insulin Aspart (Novolog Vial Sliding Scale -) 1 vial SQ ACHS [facility]; Protocol Last Admin: 01/31/18 06:50 Dose: 6 units Lactobacillus Acidophilus (Bacid -) 1 tab PO DAILY [facility] Last Admin: 01/31/18 09:38 Dose: 1 tab Methylprednisolone Sodium Succinate (Solu-Medrol -) 40 mg IVPUSH BID [facility] Last Admin: 01/31/18 09:39 Dose: 40 mg - Objective Vital Signs: Vital Signs Temperature 97.6 F 01/31/18 07:58 Pulse Rate 61 01/31/18 07:58 Respiratory Rate 18 01/31/18 09:00 Blood Pressure 149/70 01/31/18 07:58 O2 Sat by Pulse Oximetry (%) 96 01/31/18 09:00 Constitutional: Yes: Well Nourished, Calm Eyes: Yes: WNL HENT: Yes: WNL Neck: Yes: WNL Cardiovascular: Yes: Regular Rate and Rhythm, S1, S2 Respiratory: Yes: CTA Bilaterally Gastrointestinal: Yes: Normal Bowel Sounds, Soft Extremities: Yes: WNL Edema: No Labs: CBC, BMP Problem List - Problems (1) Acute hypoxemic respiratory failure Code(s): J96.01 - ACUTE RESPIRATORY FAILURE WITH HYPOXIA (2) Sarcoid Code(s): D86.9 - SARCOIDOSIS, UNSPECIFIED (3) Pneumonia Code(s): J18.9 - PNEUMONIA, UNSPECIFIED ORGANISM Assessment/Plan IMP ACUTE HYPOXEMIC RESPIRATORY FAILURE IMPROVED BILATERAL PNEUMONIA SARCOID PLAN PREDNISONE INHALED BRONCHODILATORS O2 [address] WEISS Problem List - Problems (1) Acute hypoxemic respiratory failure Code(s): J96.01 - ACUTE RESPIRATORY FAILURE WITH HYPOXIA (2) Sarcoid Code(s): D86.9 - SARCOIDOSIS, UNSPECIFIED (3) Pneumonia Code(s): J18.9 - PNEUMONIA, UNSPECIFIED ORGANISM
--- NOTE | 2018-01-31 11:34 | DS ---
Physical Exam: SUBJECTIVE: Patient seen and examined, reports less cough, denies any fever, tolerating diet, denies any chest pain or shortness of breath, ready for discharge home OBJECTIVE: 67 year old male with a PMH significant for sarcoidosis and MRSA infection presented to the ED with SOB and cough. He started developing a cough a 2-3 days ago since being exposed to his 8 year old grandson who was just treated for confirmed pneumonia. His cough was non-productive and he doesn't think he had a fever. He has never had pneumonia in the past, he did receive the pna vaccine a few years ago. He was recently diagnosed with sarcoidosis and is followed by smoke chaser Dr. Palmer. He went to see his PCP Dr. Bruce today who sent him to the ED. Upon arrival at the ED, temperature was 102 and O2 sat was 88%. He was given a dose of Vancomycin and Zosyn, Solumedrol, supplemental O2@ 2LPM, and received 2 nebulizer treatments. His O2 sat improved to 93% and he reports feeling somewhat better than when he was admitted. WBC and lactic acid WNL. Flu swab negative. CXR shows degenerative changes from one year ago. Tachycardia on ECG but otherwise unremarkable for ischemia. Denies dizziness, syncope, chest pain, palpitations, n/v/d. Vital Signs Period Temp Pulse Resp BP Sys/Davis Pulse Ox Last 24 Hr 97.6 F-98.9 F 61-91 18-19 149-175/70-79 93-96 PHYSICAL EXAM GENERAL: The patient is awake, alert, and fully oriented, in no acute distress. HEAD: Normal with no signs of trauma. EYES: PERRL, extraocular movements intact, sclera anicteric, conjunctiva clear. ENT: Ears normal, nares patent, oropharynx clear without exudates, moist mucous membranes. NECK: Trachea midline, full range of motion, supple. LUNGS: Breath sounds equal, clear to auscultation bilaterally to apexes, diminished to bases, no wheezes, no crackles, no accessory muscle use. HEART: Regular rate and rhythm, S1, S2 without murmur, rub or gallop. ABDOMEN: Soft, nontender, nondistended, normoactive bowel sounds, no guarding, no rebound, no hepatosplenomegaly, no masses. EXTREMITIES: 2+ pulses, warm, well-perfused, no edema. NEUROLOGICAL: Cranial nerves II through XII grossly intact. Normal speech, steady gait observed. PSYCH: Normal mood, normal affect. SKIN: Warm, dry, normal turgor, no rashes or lesions noted. LABS Laboratory Results - last 24 hr 01/30/18 01/30/18 01/30/18 08:00 12:05 16:27 POC Glucometer 344 347 Hemoglobin A1c % 6.2 01/30/18 01/31/18 21:03 05:55 POC Glucometer 343 229 Hemoglobin A1c % Microbiology 01/29/18 18:00 Sputum - Expectorated Gram Stain - Final 01/29/18 18:00 Sputum - Expectorated Sputum Culture - Preliminary NORMAL RESPIRATORY SONIA 01/26/18 16:26 Blood - Peripheral Venous Blood Culture - Preliminary NO GROWTH OBTAINED AFTER 96 HOURS, INCUBATION TO CONTINUE FOR 1 DAYS. 01/26/18 16:16 Blood - Peripheral Venous Blood Culture - Preliminary NO GROWTH OBTAINED AFTER 96 HOURS, INCUBATION TO CONTINUE FOR 1 DAYS. 01/26/18 19:11 Urine - Urine Clean Catch Urine Culture - Final NO GROWTH OBTAINED 01/27/18 10:45 Urine For Antigen Detection Legionella Antigen - Final, negative 01/27/18 10:45 Urine For Antigen Detection Streptococcus pneumoniae Antigen (M - Final, negative 01/26/18 16:16 Nasopharyngeal Swab Influenza Types A,B Antigen - Final 01/26/18 16:16 Nasopharyngeal Swab - Final IMAGING CXR: increased right perihlar and infrahilar markings ct of chest: Consolidation/atelectasis in the left lower lobe, Right lower lobe consolidation/atelectasis, bilateral pulmonary nodules measuring 1 cm HOSPITAL COURSE: Patient was admitted from the emergency department to the medical surgical floor For sepsis secondary to pneumonia. CT of chest notable as above. Patient was treated with 5 days of IV azithromycin and Rocephin. Leukocytosis improved. Patient remained afebrile for the past 48 hours. Blood urine and sputum cultures negative as above. Patient was started on IV steroids on hospital day 2 with taper. Senior Media Buyer was consulted and followed patient admission. He was noted to have hyperglycemia during admission secondary to steroid use. Hemoglobin A1c 6.2 elevated will require outpatient follow-up with primary care physician. PLAN - discharge home with strict follow up to primary care physician and smoke chaser - continue prednisione - augementin 875mg bid for 7 days - return precautions reviewed, all questions answered, patient verbalizes understanding. Date of Admission:01/26/18 Date of Discharge: 01/31/18 Minutes to complete discharge: 45 Discharge Summary Reason For Visit: PNEUMONIA Current Active Problems Acute hypoxemic respiratory failure (Acute) Cough (Acute) Pneumonia (Acute) Sarcoid (Acute) Condition: Fair - Instructions Referrals: Nitesh Juan MD [Primary Care Provider] - - Home Medications Comprehensive Discharge Medication List: Ambulatory Orders NK [No Known Home Medication] 01/26/18 This patient is new to me today: No Emergency Visit: Yes ED Registration Date: 01/26/18 Care time: The patient presented to the Emergency Department on the above date and was hospitalized for further evaluation of their emergent condition. Critical Care patient: No - Discharge Referral Referred to [facility] No
--- NOTE | 2018-01-31 15:08 | EKG ---
Test Reason : Blood Pressure : / mmHG Vent. Rate : 062 BPM Atrial Rate : 062 BPM P-R Int : 152 ms QRS Dur : 098 ms QT Int : 418 ms P-R-T Axes : 073 065 065 degrees QTc Int : 424 ms NORMAL SINUS RHYTHM NORMAL ECG WHEN COMPARED WITH ECG OF 26-JAN-2018 15:53, VENT. RATE HAS DECREASED BY 40 BPM Confirmed by RUPINDER MARY MD ([id number]) on 01/31/2018 3:08:08 PM Referred By: DR NGO Confirmed By:RUPINDER MARY MD
== END 2018-01-31 13:00 | disposition home or self-care (01) | DRG 871 ==
LOC: FER 15:37 → FM/S 19:59
PROVIDERS: ADMIT Internal Medicine; ATTEND Nurse Practitioner Family
DX: A41.9 Sepsis, unspecified organism (principal); J18.9 Pneumonia, unspecified organism; J96.01 Acute respiratory failure with hypoxia; J98.11 Atelectasis; J44.1 Chronic obstructive pulmonary disease with (acute) exacerbation; D86.9 Sarcoidosis, unspecified; R91.1 Solitary pulmonary nodule; R73.9 Hyperglycemia, unspecified; Z87.891 Personal history of nicotine dependence; Z79.52 Long term (current) use of systemic steroids
CPT/HCPCS: 36415; 71046-TC-FY; 71250-TC; 80048; 80053; 81003; 82803; 82962; 83036; 83605; 83735; 84100; 85025; 85027; 85610; 85730; 87040; 87070; 87086; 87205; 87804; 87899; 93005; 94640; 99284-25; J0131; J1644; J7030

== ENCOUNTER 2018-05-09 12:06 | Emergency (ER) | payer OTHER, MEDICARE ==
[2018-05-09] MEDS ORDERED: SODIUM CHLORIDE FOR INHALATION 3 ML VIAL.NEB IH ONE ×2 (12:23→12:28)
--- NOTE | 2018-05-09 12:24 | PDOC ---
History of Present Illness - General Chief Complaint: Respiratory Stated Complaint: CONGESTED COUGH Time Seen by Provider: 05/09/18 12:18 - History of Present Illness Initial Comments: 68 year old male with PMH of sarcoidosis (although he has been told that " he may not have it" most recently) presenting with cough, warmth, and congestion for the past week after playing with his grandchildren who had similar symptoms. His cough is productive of clear sputum and he denies any measured fevers at home but did feel warm,. His main complaint is congestion. His symptoms did drastically improve with decongestant that he took two dyas ago but did nto take yesterday because he thought he was better. This morning, however, his congestion worsened again. He spoke to his Dr. (Dr. Villasenor) and he recommended that he come to the ED. Denies any nausea, vomiting, diarrhea, abdominal pain, or other symptoms. 05/09/18 12:38 Past History - Past Medical History Allergies/Adverse Reactions: Allergies Allergy/AdvReac Type Severity Reaction Status Date / Time Sulfa (Sulfonamide Allergy Verified 05/09/18 12:15 Antibiotics) Home Medications: Ambulatory Orders Azithromycin 250 mg PO DAILY 4 Days #4 tablet 05/09/18 Anemia: No Asthma: No Cancer: No Cardiac Disorders: No CVA: No COPD: Yes (Hx of Sarcoidosis) CHF: No Dementia: No Diabetes: No GI Disorders: No Disorders: No HTN: No Hypercholesterolemia: No Liver Disease: No Seizures: No Thyroid Disease: No - Surgical History Abdominal Surgery: No Appendectomy: Yes Cardiac Surgery: No Cholecystectomy: No Lung Surgery: No Neurologic Surgery: No (CERVICAL CYST REMOVED) Orthopedic Surgery: Yes (Right Rotator Cuff Repair 04/2012-HAS BEEN ON ABX IN PAST-LARGE AMOUNT OF) - Suicide/Smoking/Psychosocial Hx Smoking History: Former smoker Have you smoked in the past 12 months: No If you are a former smoker, when did you quit?: 1996 Hx Alcohol Use: Yes Drug/Substance Use Hx: No Substance Use Type: Alcohol Hx Substance Use Treatment: No Review of Systems - Review of Systems Constitutional: No: Chills, Diaphoresis, Fever HEENTM: No: Eye Pain, Blurred Vision, Tearing Respiratory: Yes: Cough. No: Shortness of Breath, SOB with Exertion, SOB at Rest Cardiac (ROS): No: Chest Pain, Irregular Heart Rate, Palpitations, Syncope, Chest Tightness ABD/GI: No: Diarrhea, Nausea, Vomiting : No: Burning, Dysuria Musculoskeletal: No: Back Pain, Joint Pain Integumentary: No: Bruising, Change in Color, Erythema Neurological: No: Headache, Numbness, Paresthesia Psychiatric: No: Anxiety, Depression Hematologic/Lymphatic: No: Anemia, Blood Clots, Easy Bleeding *Physical Exam - Physical Exam General Appearance: Yes: Nourished, Appropriately Dressed. No: Apparent Distress HEENT: positive: EOMI, COLLEEN. negative: Normal ENT Inspection (nasal sinus congestion) Neck: positive: Trachea midline, Normal Thyroid, Supple. negative: Tender, Rigid Respiratory/Chest: negative: Chest Tender, Lungs Clear (left sided coarse breath sounds and right sided wheezing), Normal Breath Sounds, Respiratory Distress, Accessory Muscle Use, Labored Respiration Cardiovascular: positive: Regular Rhythm, Tachycardia (mild). negative: Regular Rate Gastrointestinal/Abdominal: positive: Normal Bowel Sounds, Flat, Soft. negative : Tender Lymphatic: negative: Adenopathy, Tenderness Musculoskeletal: positive: Normal Inspection. negative: Decreased Range of Motion Extremity: positive: Normal Capillary Refill, Normal Inspection, Normal Range of Motion. negative: Tender Integumentary: positive: Normal Color, Dry, Warm Neurologic: positive: Fully Oriented, Alert, Normal Mood/Affect, Normal Response , Motor Strength 5/5 Medical Decision Making - Medical Decision Making 68 year old male with upper respiratory symptoms and congestion which were relieved with home decongestant which he stopped taking because "I felt better" coming in with repeat episode of congestion. He spoke to Dr. Bruce who advised him to come to our ED. He had adventitious lung sounds on the left and right per my PE. However, these may be chronic as he has been previously provisionally diagnosed with sarcoidosis. His CXR demonstrated what appeared to be unchanged interstitial changes with hilar fullness bilaterally. He is afebrile with in our ED with improved RR and heart rate after saline nebs. Will DC with Azithromycin. 05/09/18 13:17 *DC/Admit/Observation/Transfer Diagnosis at time of Disposition: Cough - Discharge Dispostion Disposition: HOME Condition at time of disposition: Improved Decision to Admit order: No - Prescriptions Prescriptions: Azithromycin 250 mg PO DAILY 4 Days #4 tablet - Referrals Referrals: Nitesh Juan MD [Primary Care Provider] - - Patient Instructions Printed Discharge Instructions: DI for Viral Upper Respiratory Infection -- Adult Additional Instructions: Your CXR did not show any pneumonia. Please take your antibiotics once a day for the next 4 days. Please follow up with Dr. Mata this week. Please return to the Ed if you have new or worsening symptoms. - Post Discharge Activity
[2018-05-09 12:25] VITALS: BP 137/79; PULSE 106; TEMP 97.7; BMI 23.8
--- NOTE | 2018-05-09 12:39 | PDOC ---
Attending Attestation - Resident Resident Name: Christopher Gomez - ED Attending Attestation I have performed the following: I have examined & evaluated the patient, The case was reviewed & discussed with the resident, I agree w/resident's findings & plan, Exceptions are as noted - HPI HPI: 05/09/18 13:26 Nonproductive cough for several days. Questionable history of sarcoidosis, but no symptoms of chronic lung disease. In contact with children with URIs. No fever or myalgias or other symptoms of possible influenza. No chest pain or shortness of breath. - Physicial Exam PE: 05/09/18 13:27 Physical exam: Afebrile, vital signs normal. Oxygen saturation is good HEENT nasal congestion, watery nasal discharge, ears and throat clear Neck supple without bruit mass or nodes Chest exam reveals bilateral end expiratory wheezes, mild. No rales. No dullness to percussion suggestive of effusion CV S1 and S2 normal without murmur rub or gallop pulses full and symmetric no JVD or edema no bruits no cardiomegaly to palpation Abdomen benign - Medical Decision Making 05/09/18 13:29 Assessment: Viral bronchitis, URI with cough, rule out pneumonia Plan: Chest x-ray: No evidence of pneumonia. There are chronic lung changes including nodules which appeared to be stable. This may be sarcoidosis. But there is no acute disease. Rest, antibiotics, return to ER if symptoms worsen, including chest pain or shortness of breath if they develop. Otherwise follow- up primary physician 2-3 days. Discharged in no distress respiratory or otherwise to follow-up as directed
[2018-05-09] MEDS ORDERED: AZITHROMYCIN 250 MG TABLET PO ONE (13:20)
[2018-05-09] MEDS ORDERED: AZITHROMYCIN 250 MG TABLET ONE (13:22)
== END 2018-05-09 13:47 | disposition home or self-care (01) ==
LOC: FER 12:06
PROC: 3E0F7GC Introduction of Other Therapeutic Substance into Respiratory Tract, Via Natural or Artificial Opening (ICD-10-PCS; principal; 2018-05-09)
DX: R05 Cough (principal)
CPT/HCPCS: 71046-TC-FY; 94640; 99281-25

== ENCOUNTER 2018-11-28 09:38 | Inpatient (IN) | payer OTHER, MEDICARE ==
--- NOTE | 2018-11-28 09:49 | PDOC ---
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 He states that he was recently on vacation with his daughter and grandchildren, where they were at the beach and pool. Due to the peripheral neuropathy and history of wounds, his daughter bought him water shoes to wear. However, he developed a blister on the left 3rd toe due to the new shoes, which he first noticed last (11/24). He was putting triple antibiotic ointment on the toe, but he noticed yesterday that it looked red and swollen. He says that he squeezed pus out of the wound. He was unable to reach either his PMD or roads and parking lots sweeper operator this morning, so he presented to the ED. His regular roads and parking lots sweeper operator, Dr Prado, called him while he was being examined in the ED. He reports that the patient previously had a similar infection in the left 2nd toe that required amputation of the distal toe. He does note a history of MRSA infection and says that Mr Esparza was previously followed by Dr Mustafa. Dr Prado requests that a wound culture be sent today. <Selina Buchanan - Last Filed: 11/28/18 15:59> - General Chief Complaint: Redness To Affected Area Stated Complaint: LEFT 3RD TOE RED Time Seen by Provider: 11/28/18 09:48 Past History <Paris Rey - Last Filed: 11/28/18 13:14> - Past Medical History Anemia: No Asthma: No Cancer: No Cardiac Disorders: No CVA: No COPD: Yes (Hx of Sarcoidosis) CHF: No Dementia: No Diabetes: No GI Disorders: No Disorders: No HTN: No Hypercholesterolemia: No Liver Disease: No Seizures: No Thyroid Disease: No - Surgical History Abdominal Surgery: No Appendectomy: Yes Cardiac Surgery: No Cholecystectomy: No Lung Surgery: No Neurologic Surgery: No (CERVICAL CYST REMOVED) Orthopedic Surgery: Yes (Right Rotator Cuff Repair 04/2012-HAS BEEN ON ABX IN PAST-LARGE AMOUNT OF) - Suicide/Smoking/Psychosocial Hx Smoking History: Former smoker Have you smoked in the past 12 months: No If you are a former smoker, when did you quit?: 1996 Hx Alcohol Use: Yes Drug/Substance Use Hx: No Substance Use Type: Alcohol Hx Substance Use Treatment: No <Selina Buchanan - Last Filed: 11/28/18 15:59> - Past Medical History Allergies/Adverse Reactions: Allergies Allergy/AdvReac Type Severity Reaction Status Date / Time Sulfa (Sulfonamide Allergy Verified 11/28/18 09:39 Antibiotics) Home Medications: Ambulatory Orders Albuterol Sulfate Inhaler - [Ventolin Hfa Inhaler -] 1 - 2 inh PO PRN PRN Fluticasone Prop 0.05% Nasal [Flonase -] 50 mcg NS DAILY 11/28/18 Tiotropium Br/Olodaterol HCl [Stiolto Respimat Inhal Keymar] 2 puff .ROUTE DAILY 11/28/18 Review of Systems - Review of Systems Comments:: General: No fevers, no chills, no weight or appetite change, no malaise HEENT: No changes in vision, no changes in hearing, no congestion, no sore throat CV: No chest pain, no palpitations, no LE edema Pulm: No SOB, no cough, no wheezing GI: No nausea or vomiting, no change in bowel habits, no melena : No frequency, no urgency, no dysuria Musc: No back pain, no joint swelling, no recent injury Skin: No rash, no lesions, no erythema Endo: No excessive thirst, no heat/cold intolerance Heme: No unusual bruising or bleeding, no swollen glands Neuro: No syncope, no numbness/tingling, no focal weakness Vasc: No claudication Psych: No recent change in mood, no SI or HI <Selina Buchanan - Last Filed: 11/28/18 15:59> *Physical Exam - Vital Signs Last Vital Signs Temp Pulse Resp BP Pulse Ox 98.3 F 72 20 169/86 97 11/28/18 09:39 11/28/18 09:39 11/28/18 09:39 11/28/18 09:39 11/28/18 09:39 <Paris Rey - Last Filed: 11/28/18 13:14> - Physical Exam Comments: General: Comfortable, no acute distress HEENT: Atraumatic, PERRL, EOMI, MMM, voice normal Cards: RRR, no murmur appreciated Pulm: Comfortable on room air, clear to auscultation bilaterally Abd: Soft, nontender, nondistended Ext: Left foot with open wound to plantar surface of 3rd toe; pus draining from wound. Toe visibly swollen and erythematous. Left foot slightly swollen, warm, w / pink coloring to midfoot compared to right. No red streaking up left leg, no swelling noted proximal to foot. Left foot with additional blister on plantar foot proximal to 1st toe Vasc: Extremities WWP. Palpable radial and pedal pulses bilaterally Skin: Normal color, no rashes or lesions Neuro: A&Ox3, CN grossly intact, normal speech, motor/sensory grossly intact and symmetric Psych: Mood appropriate to situation <Selina Buchanan - Last Filed: 11/28/18 15:59> ED Treatment Course - LABORATORY CBC & Chemistry Diagram: 11/28/18 10:41 11/28/18 10:41 - ADDITIONAL ORDERS Additional order review: Laboratory Results 11/28/18 11/28/18 10:41 10:41 Sodium 139 Potassium 4.3 Chloride 104 Carbon Dioxide 29 Anion Gap 6 L BUN 25.0 H Creatinine 1.1 Est GFR (CKD-EPI)AfAm 78.41 Est GFR (CKD-EPI)NonAf 67.66 Random Glucose 128 H Calcium 9.0 Total Bilirubin 1.4 H AST 21 ALT 23 Alkaline Phosphatase 71 C-Reactive Protein 4.3 H Total Protein 6.8 Albumin 4.2 11/28/18 10:41 RBC 5.07 MCV 91.3 MCHC 33.4 RDW 13.0 MPV 8.0 Neutrophils % 78.8 Lymphocytes % 8.7 D Monocytes % 9.5 D Eosinophils % 2.5 D Basophils % 0.5 D - Medications Given in the ED: ED Medications Discontinued Medications Generic Name Dose Route Start Last Admin Trade Name Freq PRN Reason Stop Dose Admin Clindamycin Phosphate 900 mg in 50 mls @ 100 mls/hr 11/28/18 10:13 11/28/18 11:10 Cleocin 900 Mg Premix Ivpb - IVPB 11/28/18 10:42 100 mls/hr ONCE ONE Administration Protocol <Cirilli,Paris - Last Filed: 11/28/18 13:14> - LABORATORY CBC & Chemistry Diagram: 11/28/18 10:41 11/28/18 10:41 <Selina Buchanan - Last Filed: 11/28/18 15:59> Medical Decision Making - Medical Decision Making 11/28/18 10:06 Nitesh Esparza is a 68yo man with a PMH of sarcoidosis, peripheral neuropathy, known MRSA infection (per pt's roads and parking lots sweeper operator, Dr Prado, who I spoke to on the phone) with h/o infected L 2nd toe wound s/p distal toe amputation who presents with swelling, erythema, and a draining open wound to the left 3rd toe. He reports that the wound was secondary to a blister from new shoes; he did not notice the wound due to peripheral neuropathy. - Xray left foot - Wound culture 11/28/18 10:15 - Pt examined by Dr Rey, who notes that the left foot is swollen to the midfoot and erythematous when compared to the left foot - CBC, CMP, blood cultures, CRP, ESR added - 900mg IV clindamycin - Discussed possible admission w/ Mr Esparza, who states that he absolutely cannot stay in the hospital but will be seen tomorrow. Will re-discuss later 11/28/18 12:26 - Labs reviewed. No concerning abnormalities. No leukocytosis - Dr Bruce (PMD) contacted by Dr Rey. Recommending that pt should stay in [facility], but if he declines should follow up tomorrow at [facility] so that he can see podiatry as well as be seen for pulmonary problems - states pt has been putting off a recommended thoracentesis - 2nd call placed to Dr Prado regarding recommendations 11/28/18 13:45 - Patient has decided that he will stay in the hospital for IV antibiotics - [employer] sent for admission Discussed with Dr Rey. Selina Buchanan PGY2 <Selina Buchanan - Last Filed: 11/28/18 15:59> *DC/Admit/Observation/Transfer - Discharge Dispostion Decision to Admit order: Yes <Paris Rey - Last Filed: 11/28/18 13:14> <Selina Buchanan - Last Filed: 11/28/18 15:59> Diagnosis at time of Disposition: Cellulitis, Toe ulcer
[2018-11-28] MEDS ORDERED: CLINDAMYCIN 900 MG PREMIX IVPB 900 MG/50 ML BAG IVPB ONE (10:13)
--- NOTE | 2018-11-28 10:24 | PDOC ---
Attending Attestation - Resident Resident Name: Selina Buchanan - ED Attending Attestation I have performed the following: I have examined & evaluated the patient, The case was reviewed & discussed with the resident, I agree w/resident's findings & plan, Exceptions are as noted - HPI HPI: 11/28/18 10:17 68 yo male h/o peripheral nueropathy, sarcoidosis, here with infected left third toe. pt states was wearing a new pair of water shoes, developed blister which is now infected. denies fever or chills. no n/v wound to bottom of toe has been draining pus. swelling to left foot. no other complaints. no cp no sob. pt has h/o prior toe surgery on third toe, h/o MRSA, double pneumonia with resultant plueral effusions. pcp dr Perales mail caller Dr Palmer berry grower [place] [facility] Dr Mustafa 11/28/18 10:26 - Physicial Exam PE: 11/28/18 10:24 awake alert lungs clear bilaterally heart rrr no mrg abd soft nt nd ext wwp. right foot redness, erythema, warmth to mid foot. left third/ middle toe erythematous. plantar surface toe with purulence draining . plantar foot pad with large blister. 2+ dp/ pt pulses. - Medical Decision Making 11/28/18 10:26 68 yo male with h/o sarcoidosis, borderlines diabetes, prior MRSA recurrent infections here with infected left toe ulcer, cellulitis. plan labs cultures esr crp. xray toe, iv antiobiotic. due to purulence, h/o severe recurrent infections, pt requires admission for iv antiobiotic.s will give clindamycin 900 mg. 11/28/18 11:25 d/w pt regarding need for admission due to h/o resistant infections, prior foot surgery. 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 encouraged to return to ED for reevaluation. explained risk/ benefit of admission for iv antiobiotcs including worsening infection, and possible toe amputation/ osteomyletis if worsens. d/w dr Fischer. will see him as outpatient, however would like him to call and followup with his berry grower. dr Guerrero. Dr Guerrero office [phone] called, cell [phone] awaiting call back. pt
[2018-11-28] MEDS ORDERED: CLINDAMYCIN PHOSPHATE 300 MG/2 ML VIAL ONE (10:28)
[2018-11-28] MEDS ORDERED: CLINDAMYCIN PHOSPHATE 600 MG/4 ML VIAL ONE (10:28)
[2018-11-28 11:00] LABS: BASO % 0.5 % (0-2.0); EOS % 2.5 % (0-4.5); HEMATOCRIT 46.2 % (35.4-49); HEMOGLOBIN 15.4 GM/dl (11.7-16.9); LYMPH % 8.7 % (8-40); MCH 30.5 pg (25.7-33.7); MCHC 33.4 g/dl (32.0-35.9); MEAN CELL VOLUME 91.3 fl (80-96); MONO % 9.5 % (3.8-10.2); NEUT % 78.8 % (42.8-82.8); PLATELET COUNT 258 K/MM3 (134-434); RBC 5.07 M/mm3 (4.00-5.60); WHITE BLOOD COUNT 9.9 K/mm3 (4.0-10.8)
[2018-11-28 11:08] LABS: ALBUMIN 4.2 g/dl (3.4-5.0); BILIRUBIN,TOTAL 1.4 mg/dl (0.2-1); CREATININE 1.1 mg/dl (0.55-1.3); POTASSIUM 4.3 mmol/L (3.5-5.1); TOT PROT 6.8 g/dl (6.4-8.2)
--- NOTE | 2018-11-28 13:24 | HP ---
CHIEF COMPLAINT: Left toe infection PCP: Dr. Bruce Podiatry: Dr. Prado HISTORY OF PRESENT ILLNESS: This is a 68 year-old man with a PMH significant for sarcoidosis, peripheral neuropathy, MRSA infection of left second toe s/p distal toe amputation. Presented to the ED for evaluation of an infection of the left third toe. Patient was recently on vacation and worse water shoes which led to a blister on the left third toe. He first noticed the blister on 11/24. He has been applying triple antibiotic ointment, but yesterday the toe appeared red and swollen. Patient said he squeezed pus out of the wound. When he was unable to to reach either his PMD or assembly line machine operator this morning, he came to the ED. Patient denies fever, sweats, chills. ER course was notable for: (1) Clinda IV 900mg x 1 Recent Travel: No PAST MEDICAL HISTORY: Sarcoidosis MRSA infection left 2nd toe PAST SURGICAL HISTORY: Left 2nd toe distal amputation (2018) Social History: retired construction project mgr Smoking: quit 30 years ago Alcohol: occasional Drugs: denies Family History: father 80s heart disease; mother 77 Allergies Sulfa (Sulfonamide Antibiotics) Allergy (Verified 11/28/18 09:39) HOME MEDICATIONS: Current Medications Generic Name Dose Route Start Last Admin Trade Name Freq PRN Reason Stop Dose Admin Albuterol Sulfate 2 puff 11/28/18 13:40 Ventolin Hfa Inhaler - IH PRN PRN SHORTNESS OF BREATH Fluticasone Propionate 3,000 spray 11/29/18 10:00 Flonase - NS DAILY LOTTIE Tiotropium [place]/Olodaterol 2 puff 11/29/18 10:00 Stiolto Respimat Inhal [place] IH DAILY LOTTIE REVIEW OF SYSTEMS CONSTITUTIONAL: Absent: fever, chills, diaphoresis, generalized weakness, malaise, loss of appetite, weight change HEENT: Absent: rhinorrhea, nasal congestion, throat pain, throat swelling, difficulty swallowing, mouth swelling, ear pain, eye pain, visual changes CARDIOVASCULAR: Absent: chest pain, syncope, palpitations, irregular heart rate, lightheadedness , peripheral edema RESPIRATORY: Absent: cough, shortness of breath, dyspnea with exertion, orthopnea, wheezing, stridor, hemoptysis GASTROINTESTINAL: Absent: abdominal pain, abdominal distension, nausea, vomiting, diarrhea, constipation, melena, hematochezia GENITOURINARY: Absent: dysuria, frequency, urgency, hesitancy, hematuria, flank pain, genital pain MUSCULOSKELETAL: Absent: myalgia, arthralgia, joint swelling, back pain, neck pain SKIN: +redness, swelling, pain, pus left third toe Absent: rash, itching, pallor HEMATOLOGIC/IMMUNOLOGIC: Absent: easy bleeding, easy bruising, lymphadenopathy, frequent infections ENDOCRINE: Absent: unexplained weight gain, unexplained weight loss, heat intolerance, cold intolerance NEUROLOGIC: Absent: headache, focal weakness or paresthesias, dizziness, unsteady gait, seizure, mental status changes, bladder or bowel incontinence PSYCHIATRIC: Absent: anxiety, depression, suicidal or homicidal ideation, hallucinations. PHYSICAL EXAMINATION Vital Signs - 24 hr 11/28/18 09:39 Temperature 98.3 F Pulse Rate 72 Respiratory 20 Rate Blood Pressure 169/86 O2 Sat by Pulse 97 Oximetry (%) GENERAL: Awake, alert, and fully oriented, in no acute distress. HEAD: Normal with no signs of trauma. EYES: Pupils equal, round and reactive to light, extraocular movements intact, sclera anicteric, conjunctiva clear. No lid lag. LUNGS: Breath sounds equal, clear to auscultation bilaterally. No wheezes, and no crackles. No accessory muscle use. HEART: Regular rate and rhythm, S1 and S2 ABDOMEN: Soft, nontender, not distended UPPER EXTREMITIES: 2+ pulses, warm, well-perfused. No cyanosis. No clubbing. No peripheral edema. LOWER EXTREMITIES: 2+ pulses, warm, well-perfused. No calf tenderness. No peripheral edema. NEUROLOGICAL: Cranial nerves II-XII intact. Normal speech. SKIN LEFT FOOT: Blistering plantar surface great toe; third toe swollen, tender , erythematous; blister on fifth toe; entire left foot is warm to touch Laboratory Results - last 24 hr 11/28/18 11/28/18 11/28/18 10:41 10:41 10:41 WBC 9.9 RBC 5.07 Hgb 15.4 Hct 46.2 D MCV 91.3 MCH 30.5 MCHC 33.4 RDW 13.0 Plt Count 258 MPV 8.0 Absolute Neuts (auto) 7.9 Neutrophils % 78.8 Lymphocytes % 8.7 D Monocytes % 9.5 D Eosinophils % 2.5 D Basophils % 0.5 D ESR Sodium 139 Potassium 4.3 Chloride 104 Carbon Dioxide 29 Anion Gap 6 L BUN 25.0 H Creatinine 1.1 Est GFR (CKD-EPI)AfAm 78.41 Est GFR (CKD-EPI)NonAf 67.66 Random Glucose 128 H Calcium 9.0 Total Bilirubin 1.4 H AST 21 ALT 23 Alkaline Phosphatase 71 C-Reactive Protein 4.3 H Total Protein 6.8 Albumin 4.2 11/28/18 10:41 WBC RBC Hgb Hct MCV MCH MCHC RDW Plt Count MPV Absolute Neuts (auto) Neutrophils % Lymphocytes % Monocytes % Eosinophils % Basophils % ESR 14 Sodium Potassium Chloride Carbon Dioxide Anion Gap BUN Creatinine Est GFR (CKD-EPI)AfAm Est GFR (CKD-EPI)NonAf Random Glucose Calcium Total Bilirubin AST ALT Alkaline Phosphatase C-Reactive Protein Total Protein Albumin ASSESSMENT/PLAN 68 year-old male with a PMH significant for sarcoidosis, peripheral neuropathy, MRSA infection of left 2d toe s/p distal toe amputation. Admitted for cellulitis of left 3rd toe. Cellulitis left third toe Peripheral neuropathy h/o MRSA --afebrile, no leukocytosis --cultures pending --empiric Vanc, Zosyn --MRI left forefoot to r/o osteo --ID consult --podiatry consult Sarcoidosis --stable --continue inhalers FEN Fluids: PO intake adequate Electrolytes: replete as indicated Nutrition: regular diet DVT prophylaxis: subq lovenox Physical therapy Dispo: continues to require inpatient care. Full code. Visit type - Emergency Visit Emergency Visit: Yes ED Registration Date: 11/28/18 Care time: The patient presented to the Emergency Department on the above date and was hospitalized for further evaluation of their emergent condition. - New Patient This patient is new to me today: Yes Date on this admission: 11/28/18 - Critical Care Critical Care patient: No
[2018-11-28] MEDS ORDERED: ALBUTEROL SO4 8 GM HFA INHALER IH PRN ×2 (13:40→14:36)
[2018-11-28] MEDS ORDERED: PIPERACILLIN/TAZOBACTAM 3.375 GM VIAL IVPB ONE (14:28)
[2018-11-28] MEDS ORDERED: VANCOMYCIN 500 MG VIAL (RESTRICTED TO ID ONLY) ONE (14:28)
[2018-11-28] MEDS ORDERED: VANCOMYCIN 1,000 MG VIAL (RESTRICTED TO ID ONLY) ONE (14:29)
[2018-11-28] MEDS: VANCOMYCIN HCL 1,250 MG in DEXTROSE 5%-WATER - 250 ML IVPB SCH (14:39)
[2018-11-28] MEDS: PIPERACILLIN/TAZOB 3.375 GM 3.375 GM in DEXTROSE 5%-WATER - 50 ML IVPB SCH (15:46)
[2018-11-28 18:28] VITALS: BMI 24.0
[2018-11-29] MEDS ORDERED: DEXTROSE 5%-WATER - 50 ML IVPB ONE ×3 (00:13→18:04)
[2018-11-29] MEDS ORDERED: PIPERACILLIN/TAZOBACTAM 3.375 GM VIAL IVPB ONE ×3 (00:13→18:04)
[2018-11-29] MEDS: PIPERACILLIN/TAZOB 3.375 GM 3.375 GM in DEXTROSE 5%-WATER - 50 ML IVPB SCH ×4 (01:53→18:11)
[2018-11-29] MEDS: VANCOMYCIN HCL 1,250 MG in DEXTROSE 5%-WATER - 250 ML IVPB SCH (03:15)
[2018-11-29 08:00] LABS: INR 1.22 (0.82-1.09); PROTHROMBIN TIME (PATIENT) 13.6 SEC (10.2-13.0)
[2018-11-29 08:03] LABS: BASO % 0.3 % (0-2.0); HEMATOCRIT 42.8 % (35.4-49); HEMOGLOBIN 14.6 GM/dl (11.7-16.9); LYMPH % 8.1 % (8-40); MCH 30.9 pg (25.7-33.7); MCHC 34.2 g/dl (32.0-35.9); MEAN CELL VOLUME 90.4 fl (80-96); MEAN PLT VOLUME 8.2 fl (7.5-11.1); NEUT % 77.6 % (42.8-82.8); PLATELET COUNT 226 K/MM3 (134-434); RBC 4.74 M/mm3 (4.00-5.60); RDW 13.1 % (11.9-15.9)
[2018-11-29 08:07] LABS: ACTIVATED PTT 26.9 SECONDS (25.2-36.5)
[2018-11-29 08:08] LABS: ALBUMIN 3.6 g/dl (3.4-5.0); BILIRUBIN,TOTAL 1.8 mg/dl (0.2-1); CALCIUM 8.7 mg/dl (8.5-10); CREATININE 1.2 mg/dl (0.55-1.3); POTASSIUM 4.7 mmol/L (3.5-5.1); TOT PROT 6.1 g/dl (6.4-8.2)
[2018-11-29] MEDS ORDERED: PT OWN MED DRAWER 7, Y5N ONE (09:17)
--- NOTE | 2018-11-29 09:34 | PN ---
Progress Note (short form) - Note Progress Note: ID CONSULT DICTATED CELLULITIS L 3RD TOE R/O OSTEOMYELITIS AWAIT C/S, MRI PODIATRY EVALUATION EMPIRIC VANCOMYCIN/ ZOSYN
[2018-11-29] MEDS ORDERED: TIOTROPIUM/OLODATEROL HCL (STIOLTO) 4 GM INHALER IH SCH (10:00)
[2018-11-29] MEDS ORDERED: FLUTICASONE PROP 0.05% 16 GM NASAL SPRAY NS SCH ×2 (10:00)
[2018-11-29] MEDS ORDERED: PIPERACILLIN/TAZOB 3.375 GM 3.375 GM in DEXTROSE 5%-WATER - 50 ML IVPB SCH (10:00)
[2018-11-29] MEDS ORDERED: ENOXAPARIN NA (PORCINE) 40 MG/0.4 ML DISP.SYRIN SQ SCH (10:00)
--- NOTE | 2018-11-29 10:07 | CONS ---
INFECTIOUS DISEASE CONSULTATION DATE OF CONSULTATION: 11/29/2018 HISTORY: The patient is a 68-year-old nondiabetic male who was evaluated for cellulitis of the left 3rd toe. The patient was admitted to the hospital with diffuse swelling and erythema of the left 3rd toe. The patient was vacationing in the [facility]. He was wearing water shoes while at the beach. On November 24, he developed a blister at the distal aspect of the left 3rd toe. The patient treated it with a topical antibiotic ointment. Despite therapy, he developed worsening erythema, warmth, and swelling of the toe. He returned to the [facility] and was evaluated in the emergency room at [place] where he was noted to have cellulitis of the left 3rd toe. Cultures were obtained. He was empirically treated with vancomycin and Zosyn. Patient reports that after the blister ruptured he did notice purulent drainage. He reports that the swelling and the erythema extended to the dorsum of the foot. He denied any associated fever or chills. The patient has had a history of foot infections in the past as well as a history of MRSA. PAST MEDICAL HISTORY: Positive for sarcoidosis, asthma, COPD, peripheral neuropathy, left pleural effusion, history of MRSA soft tissue infection. ALLERGIES: SULFA. MEDICATIONS: Include albuterol, Lovenox, vancomycin, Zosyn. SOCIAL HISTORY: He is a former smoker. Lives in the community. No recent hospitalizations. SYSTEMS REVIEW: Neurologic: Positive for peripheral neuropathy. No loss of consciousness, seizure activity, or focal weakness. Cardiac: Negative chest pain or palpitations. Respiratory: Positive for left pleural effusion. Gastrointestinal: Negative vomiting or diarrhea. Genitourinary: Negative for urinary tract infection. PHYSICAL EXAMINATION: General: He is awake and alert. He is not acutely toxic appearing. Vital Signs: Temperature 98.7, blood pressure 150/81, pulse 80 regular, respirations 18 per minute. HEENT: Sclerae anicteric. Heart: Sounds S1, S2. Lungs: Clear. Decreased breath sounds at the left base. Abdomen: Soft. No tenderness elicited. No mass, rebound, or rigidity. Extremities: Right foot, no evidence of foot ulcers or infection. Examination of the left foot, there is a dry ulceration present at the distal aspect of the left 3rd toe. There is diffuse swelling of the left 3rd toe and erythema. No tenderness. There is no swelling or erythema noted on the dorsum of the foot. No crepitus or fluctuance. No drainage noted. LABORATORY DATA: White blood cell count 8.0, hematocrit 42.8, platelets 226, creatinine 1.2. ESR 14, total bilirubin 1.8, alkaline phosphatase 58, AST 19. X-ray of the foot, no fracture or subluxation. IMPRESSION: 1. Infected left 3rd toe. 2. Rule out osteomyelitis of the distal aspect of the left 3rd toe. 3. History of methicillin-resistant Staphylococcus aureus soft tissue infection. PLAN: Await cultures. MRI has been ordered. Continue empiric antibiotic coverage with vancomycin and Zosyn. Podiatry evaluation. Thank you for the kind referral. JOAN GARZA M.D. [id number]
--- NOTE | 2018-11-29 13:24 | PN ---
Physical Exam: SUBJECTIVE: Patient seen and examined at bedside. Voices no complaints other than being frustrated at being in hospital. Denies pain. OBJECTIVE: Vital Signs Period Temp Pulse Resp BP Sys/Davis Pulse Ox Last 24 Hr 97.8 F-98.7 F 72-87 18-20 150-164/66-84 94-97 GENERAL: Awake, alert, and fully oriented, in no acute distress. HEAD: Normal with no signs of trauma. EYES: Pupils equal, round and reactive to light, extraocular movements intact, sclera anicteric, conjunctiva clear. No lid lag. LUNGS: Breath sounds equal, clear to auscultation bilaterally. No wheezes, and no crackles. No accessory muscle use. HEART: Regular rate and rhythm, S1 and S2 ABDOMEN: Soft, nontender, not distended UPPER EXTREMITIES: 2+ pulses, warm, well-perfused. No cyanosis. No clubbing. No peripheral edema. LOWER EXTREMITIES: 2+ pulses, warm, well-perfused. No calf tenderness. No peripheral edema. NEUROLOGICAL: Cranial nerves II-XII intact. Normal speech. SKIN LEFT FOOT: Blistering plantar surface great toe; third toe swollen, erythematous; blister on fifth toe; entire left foot is warm to touch Laboratory Results - last 24 hr 11/28/18 11/29/18 11/29/18 10:41 07:16 07:16 WBC 8.0 RBC 4.74 Hgb 14.6 Hct 42.8 MCV 90.4 MCH 30.9 MCHC 34.2 RDW 13.1 Plt Count 226 MPV 8.2 Absolute Neuts (auto) 6.2 Neutrophils % 77.6 Lymphocytes % 8.1 Monocytes % 10.0 Eosinophils % 4.0 Basophils % 0.3 PT with INR 13.6 H INR 1.22 PTT (Actin FS) 26.9 Sodium Potassium Chloride Carbon Dioxide Anion Gap BUN Creatinine Est GFR (CKD-EPI)AfAm Est GFR (CKD-EPI)NonAf Random Glucose Hemoglobin A1c % 6.1 Calcium Magnesium Total Bilirubin AST ALT Alkaline Phosphatase Total Protein Albumin 11/29/18 07:16 WBC RBC Hgb Hct MCV MCH MCHC RDW Plt Count MPV Absolute Neuts (auto) Neutrophils % Lymphocytes % Monocytes % Eosinophils % Basophils % PT with INR INR PTT (Actin FS) Sodium 139 Potassium 4.7 Chloride 105 Carbon Dioxide 30 Anion Gap 4 L BUN 20.0 H Creatinine 1.2 Est GFR (CKD-EPI)AfAm 70.58 Est GFR (CKD-EPI)NonAf 60.90 Random Glucose 134 H Hemoglobin A1c % Calcium 8.7 Magnesium 2.0 Total Bilirubin 1.8 H AST 19 ALT 20 Alkaline Phosphatase 58 D Total Protein 6.1 L Albumin 3.6 Active Medications Generic Name Dose Route Start Last Admin Trade Name Freq PRN Reason Stop Dose Admin Albuterol Sulfate 2 puff 11/28/18 14:36 Ventolin Hfa Inhaler - IH Q6H PRN SHORTNESS OF BREATH Enoxaparin Sodium 40 mg 11/29/18 10:00 11/29/18 10:24 Lovenox - SQ 40 mg DAILY LOTTIE Administration Fluticasone Propionate 1 spray 11/29/18 10:00 11/29/18 10:24 Flonase - NS 1 spray DAILY LOTTIE Administration Vancomycin HCl 1,000 mg in 250 mls @ 166.667 mls/hr 11/29/18 15:00 Vancomycin (Pre-Docked) IVPB Q12H LOTTIE Protocol Piperacillin Sod/Tazobactam 50 mls @ 100 mls/hr 11/29/18 10:00 11/29/18 10:23 Sod 3.375 gm/ Dextrose IVPB 100 mls/hr Q8H-IV LOTTIE Administration Protocol Tiotropium [place]/Olodaterol 2 puff 11/29/18 10:00 11/29/18 10:28 Stiolto Respimat Inhal [place] IH 2 puff DAILY LOTTIE Administration Microbiology 11/28/18 12:05 Blood - Peripheral Venous Blood Culture - Preliminary NO GROWTH OBTAINED AFTER 24 HOURS, INCUBATION TO CONTINUE FOR 4 DAYS. 11/28/18 10:41 Blood - Peripheral Venous Blood Culture - Preliminary NO GROWTH OBTAINED AFTER 24 HOURS, INCUBATION TO CONTINUE FOR 4 DAYS. 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 Admitted for cellulitis of left 3rd toe. Cellulitis left third toe r/o osteomyelitis --afebrile, no leukocytosis --MRI suspicious for early osteo --toe wound culture presumptive MSSA and strep --continue empiric Vanc, Zosyn --ID consult --podiatry consult Sarcoidosis --stable --continue inhalers FEN Fluids: PO intake adequate Electrolytes: replete as indicated Nutrition: regular diet DVT prophylaxis: subq lovenox Physical therapy Dispo: continues to require inpatient care. Full code. Visit type - Emergency Visit Emergency Visit: Yes ED Registration Date: 11/28/18 Care time: The patient presented to the Emergency Department on the above date and was hospitalized for further evaluation of their emergent condition. - New Patient This patient is new to me today: No - Critical Care Critical Care patient: No
[2018-11-29 14:29] VITALS: BP 144/67; PULSE 72; TEMP 98.6
[2018-11-29] MEDS ORDERED: VANCOMYCIN 1 GRAM (PRE-DOCKED) 1,000 MG/250 ML BAG IVPB SCH (15:00)
[2018-11-29] MEDS ORDERED: VANCOMYCIN HCL 1,250 MG in DEXTROSE 5%-WATER - 250 ML IVPB SCH (15:00)
--- NOTE | 2018-11-29 17:38 | DS ---
Physical Exam: SUBJECTIVE: Patient seen and examined OBJECTIVE: Vital Signs Period Temp Pulse Resp BP Sys/Davis Pulse Ox Last 24 Hr 97.8 F-98.7 F 72-87 18-20 144-164/66-81 94-97 PHYSICAL EXAM GENERAL: The patient is awake, alert, and fully oriented, in no acute distress. HEAD: Normal with no signs of trauma. EYES: PERRL, extraocular movements intact, sclera anicteric, conjunctiva clear. ENT: Ears normal, nares patent, oropharynx clear without exudates, moist mucous membranes. NECK: Trachea midline, full range of motion, supple. LUNGS: Breath sounds equal, clear to auscultation bilaterally, no wheezes, no crackles, no accessory muscle use. HEART: Regular rate and rhythm, S1, S2 without murmur, rub or gallop. ABDOMEN: Soft, nontender, nondistended, normoactive bowel sounds, no guarding, no rebound, no hepatosplenomegaly, no masses. EXTREMITIES: 2+ pulses, warm, well-perfused, no edema. NEUROLOGICAL: Cranial nerves II through XII grossly intact. Normal speech, gait not observed. PSYCH: Normal mood, normal affect. SKIN: Warm, dry, normal turgor, no rashes or lesions noted. LABS Laboratory Results - last 24 hr 11/29/18 11/29/18 11/29/18 07:16 07:16 07:16 WBC 8.0 RBC 4.74 Hgb 14.6 Hct 42.8 MCV 90.4 MCH 30.9 MCHC 34.2 RDW 13.1 Plt Count 226 MPV 8.2 Absolute Neuts (auto) 6.2 Neutrophils % 77.6 Lymphocytes % 8.1 Monocytes % 10.0 Eosinophils % 4.0 Basophils % 0.3 PT with INR 13.6 H INR 1.22 PTT (Actin FS) 26.9 Sodium 139 Potassium 4.7 Chloride 105 Carbon Dioxide 30 Anion Gap 4 L BUN 20.0 H Creatinine 1.2 Est GFR (CKD-EPI)AfAm 70.58 Est GFR (CKD-EPI)NonAf 60.90 Random Glucose 134 H Calcium 8.7 Magnesium 2.0 Total Bilirubin 1.8 H AST 19 ALT 20 Alkaline Phosphatase 58 D Total Protein 6.1 L Albumin 3.6 HOSPITAL COURSE: Date of Admission:11/28/18 Date of Discharge: 11/29/18 Minutes to complete discharge: 35 Discharge Summary Reason For Visit: CELLULITIS,ULCER OF TOE Current Active Problems Cellulitis (Acute) Toe ulcer (Acute) Condition: Improved - Instructions Diet, Activity, Other Instructions: A prescription has been sent to your pharmacy for augmentin which is an antibiotic. Take this medication as directed and be sure to finish all the medication. You were seen by Dr. Castro, lathe set up operator, and it is important you follow up with him at [facility]. He will provide you with details about your upcoming appointment and planned surgery. Return to the emergency department for any new or worsening symptoms. Referrals: eFi Castro MD [Staff Physician] - Disposition: HOME - Home Medications Comprehensive Discharge Medication List: Ambulatory Orders Albuterol Sulfate Inhaler - [Ventolin HFA Inhaler -] 1 - 2 inh PO PRN PRN Fluticasone Prop 0.05% Nasal [Flonase -] 50 mcg NS DAILY 11/28/18 Tiotropium Br/Olodaterol HCl [Stiolto Respimat Inhal [place]] 2 puff .ROUTE DAILY 11/28/18 Amoxicillin/Potassium Clav [Augmentin 875-125 Tablet] 1 each PO BID #20 tablet 11/29/18 This patient is new to me today: No Emergency Visit: Yes ED Registration Date: 11/28/18 Care time: The patient presented to the Emergency Department on the above date and was hospitalized for further evaluation of their emergent condition. Critical Care patient: No - Discharge Referral Referred to [facility] No
--- NOTE | 2018-11-29 17:43 | CONSULT ---
Consult - text type - Consultation Consultation Note: Podiatry Consultation: 68 year old male, history of neuropathy, presented to ED for admission with left third digit cellulitis and infection. Patient states that he recently returned to a vacation in the [facility] and developed an infection secondary to shoegear irritation from water shoes. The patient noted increased redness/ swelling to the toe which prompted admission. He denies subjective F/V/N/C/SOB/ CP. Currently afebrile. 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 There is a distal tuft neuropathic ulcer of the third digit probing deep, scant seropurulent drainage, no fluctuance, moderate digital erythema, no soft tissue crepitus, no exposed bone, no streaking cellulitis, no signs of emergent infection. No tenderness elicited on palpation of the third digit. WBC: 8.0 ESR: 14 Blood Cx: no growth Wound Cx: MSSA, alpha hemolytic strep MRI: demonstrates faint bone marrow edema suggestive of early osteomyelitis left third distal phalanx Imp: 68 year old male, history of peripheral neuropathy, with neuropathic ulcer left third digit and early osteomyelitis 1. Abx per infectious diseases 2. Discussed case with ID and hospitalist team. Recommend PO augmentin x 10 days on discharge. Discussed treatment options at length with patient, namely intravenous abx treatment for 6 weeks versus partial amputation. Patient would like partial amputation done, and I can arrange this as outpatient. Recommend bactroban daily to the left third digit. I advised the patient on follow up in the wound healing center next week upon discharge. If symptoms worsen he will present to the ED for management. Thank you for the courtesy of this consultation. Brandyn Castro DPM
== END 2018-11-29 18:37 | disposition home or self-care (01) | DRG 540 ==
LOC: FER 09:38 → FM/S 13:15
PROVIDERS: ADMIT Internal Medicine; ATTEND Nurse Practitioner Acute Care
DX: M86.9 Osteomyelitis, unspecified (principal); L97.528 Non-pressure chronic ulcer of other part of left foot with other specified severity; L03.032 Cellulitis of left toe; D86.9 Sarcoidosis, unspecified; A49.02 Methicillin resistant Staphylococcus aureus infection, unspecified site; G62.89 Other specified polyneuropathies; Z89.422 Acquired absence of other left toe(s)
CPT/HCPCS: 36415; 73630-TC-LT; 73718-TC-LT; 80053; 83036; 83735; 85025; 85610; 85651; 85730; 86140; 87040; 87070; 87077; 87081; 87186; 87205; 97116-GP; 97161-GP; 99282-25; J3535

== ENCOUNTER 2018-12-08 10:09 | Day surgery (SDC) | payer OTHER, MEDICARE ==
[2018-12-07 16:16] VITALS: BMI 23.8
[2018-12-08 14:56] VITALS: TEMP 98.3
[2018-12-08 14:59] VITALS: BP 127/77; PULSE 68
[2018-12-08 18:52] LABS: BODY FLUID MONOCYTE 1 %
[2018-12-08 18:53] LABS: BODY FLUID MACROPHAGES 13 %; BODY FLUID MESOTHELIAL 9 %
[2018-12-09 11:11] LABS: BODY FLUID ALBUMIN 2.9 g/dL (.)
--- NOTE | 2018-12-13 16:26 | PATH ---
Cytology Non-Gynecological Report Patient Name: WILLIAM JEONG [facility]. Rec. #: [id number] /Age/Gender: 1950 (Age: 68) / M Account: [id number] Location: RADIOLOGY INTER Taken: 12/08/2018 Received: 12/12/2018 Reported: 12/13/2018 Physicians: Jack Palmer M.D. Specimen(s) Received A: PLEURAL FLUID B: PLEURAL FLUID Clinical History Left Pleural effusion Final Diagnosis A-B. PLEURAL FLUID, LEFT, THORACENTESIS: SATISFACTORY FOR EVALUATION NO MALIGNANT CELLS IDENTIFIED. MESOTHELIAL CELLS AND LYMPHOCYTES PRESENT. Electronically Signed Candice Hathaway M.D. Gross Description A. Approximately 1000 cc of yellow fluid received fresh. One cytofunnel prepared and Pap stained. One cellblock prepared. B. Approximately 50 the cc of yellow fluid received fixed in 50% alcohol. One cytofunnel prepared and Pap stained. One cellblock prepared.
== END 2018-12-08 13:30 | disposition home or self-care (01) ==
LOC: JRADIR 10:09
PROVIDERS: ATTEND Internal Medicine Pulmonary Disease
PROC: 0W9B3ZZ Drainage of Left Pleural Cavity, Percutaneous Approach (ICD-10-PCS; principal; 2018-12-08)
DX: J90 Pleural effusion, not elsewhere classified (principal)
CPT/HCPCS: 36415; 71045-TC-FY; 76942; 82042; 82150; 82465; 82945; 83615; 83986; 84157; 84478; 87070; 87075; 87102; 87116; 87205; 87206; 87210; 88108; 88305-TC

== ENCOUNTER 2018-12-23 17:50 | Inpatient (IN) | payer OTHER, MEDICARE ==
--- NOTE | 2018-12-23 17:55 | PDOC ---
Rapid Medical Evaluation Medical Evaluation: Allergies Allergy/AdvReac Type Severity Reaction Status Date / Time Sulfa (Sulfonamide Allergy Verified 11/28/18 09:39 Antibiotics) I have performed a brief in-person evaluation of this patient. The patient presents with a chief complaint of: c/o SOB, cough x few days; seen by PCP and referred to ED; has had hx of pleural effusions, last drained a few weeks ago; denies cp; former smoker; denies hx of CHF Pertinent physical exam findings: In nad, +crackles B/L, no pedal edema I have ordered the following: labs, ekg, cxr The patient will proceed to the ED for further evaluation. 12/23/18 17:53 Discharge Disposition - Referrals Referrals: Nitesh Juan MD [Primary Care Provider] - - Patient Instructions - Post Discharge Activity
[2018-12-23 18:36] LABS: BASO % 0.9 % (0-2.0); EOS % 2.5 % (0-4.5); HEMATOCRIT 43.7 % (35.4-49); HEMOGLOBIN 14.8 GM/dL (11.7-16.9); LYMPH % 11.4 % (8-40); MCH 30.3 pg (25.7-33.7); MCHC 33.8 g/dl (32.0-35.9); MEAN CELL VOLUME 89.7 fl (80-96); MEAN PLT VOLUME 7.9 fl (7.5-11.1); MONO % 11.5 % (3.8-10.2); NEUT % 73.7 % (42.8-82.8); PLATELET COUNT 236 K/MM3 (134-434); RBC 4.87 M/mm3 (4.00-5.60); RDW 13.1 % (11.9-15.9); WHITE BLOOD COUNT 6.2 K/mm3 (4.0-10.0)
--- NOTE | 2018-12-23 18:43 | PDOC ---
History of Present Illness - General Chief Complaint: Shortness of Breath Stated Complaint: Shortness of Breath Time Seen by Provider: 12/23/18 17:53 History Source: Patient Exam Limitations: No Limitations - History of Present Illness Initial Comments: 12/23/18 18:54 68 yo M with a hx of sarcoidosis, peripheral neuropathy, MRSA infection of the left second toe with distal toe amputation presents to the emergency department with 3 days of SOB. This is a 68 year-old man with a PMH significant for sarcoidosis, peripheral neuropathy, MRSA infection of left second toe s/p distal toe amputation presents to the emergency department with 3 days of SOB. Worse at night. Denies CHF hx. Denies CAD. States he is unable to lay down. Recently had 1 L of fluid removed from left thoracic cage. Denies fevers, chills, palpitations, chest pain , abdominal pain, and rest of ROS negative. Denies lasix use. Denies recent smoking (quit 30 years ago). 12/23/18 23:47 Past History - Past Medical History Allergies/Adverse Reactions: Allergies Allergy/AdvReac Type Severity Reaction Status Date / Time Sulfa (Sulfonamide Allergy Verified 12/24/18 00:43 Antibiotics) Home Medications: Ambulatory Orders Albuterol Sulfate Inhaler - [Ventolin HFA Inhaler -] 1 - 2 inh PO PRN PRN Fluticasone Prop 0.05% Nasal [Flonase -] 50 mcg NS DAILY 11/28/18 Amoxicillin/Potassium Clav [Augmentin 875-125 Tablet] 1 each PO BID #20 tablet 11/29/18 Albuterol Sulfate Inhaler - [Ventolin Hfa Inhaler -] 2 inh PO Q4H PRN 12/24/18 Amoxicillin/Potassium Clav [Augmentin 875-125 Tablet] 1 each PO BID 12/24/18 Mupirocin Ointment [Bactroban 2% Ointment -] 1 applic TP DAILY 12/24/18 Anemia: No Asthma: No Cancer: No Cardiac Disorders: No CVA: No COPD: Yes (sarcoidosis(per hx)) CHF: No Dementia: No Diabetes: No GI Disorders: No Disorders: No HTN: No Hypercholesterolemia: No Liver Disease: No Seizures: No Thyroid Disease: No - Surgical History Abdominal Surgery: No Appendectomy: Yes Cardiac Surgery: No Cholecystectomy: No Lung Surgery: No Neurologic Surgery: No (CERVICAL CYST REMOVED) Orthopedic Surgery: (amputation of left 2nd toe) - Immunization History Immunization Up to Date: No - Suicide/Smoking/Psychosocial Hx Smoking History: Never smoked Have you smoked in the past 12 months: No If you are a former smoker, when did you quit?: 1996 Information on smoking cessation initiated: No Hx Alcohol Use: No Drug/Substance Use Hx: No Substance Use Type: Alcohol Hx Substance Use Treatment: No *Physical Exam - Vital Signs Last Vital Signs Temp Pulse Resp BP Pulse Ox 99.2 F 78 20 171/89 H 95 12/23/18 17:54 12/23/18 17:54 12/23/18 17:54 12/23/18 17:54 12/23/18 17:54 ED Treatment Course - LABORATORY CBC & Chemistry Diagram: 12/25/18 05:18 12/25/18 05:18 - ADDITIONAL ORDERS Additional order review: 12/23/18 18:26 RBC 4.87 MCV 89.7 MCHC 33.8 RDW 13.1 MPV 7.9 Neutrophils % 73.7 Lymphocytes % 11.4 D Monocytes % 11.5 H Eosinophils % 2.5 D Basophils % 0.9 *DC/Admit/Observation/Transfer Diagnosis at time of Disposition: New onset a-fib, Sarcoid, Cough - Referrals - Patient Instructions - Post Discharge Activity
[2018-12-23] MEDS ORDERED: dilTIAZem HCL 30 MG TABLET (FP) PO ONE (18:47)
[2018-12-23] MEDS ORDERED: dilTIAZem HCL 50 MG/10 ML - 10 ML VIAL IVPUSH ONE ×2 (18:47→20:21)
[2018-12-23 19:04] LABS: ALBUMIN 3.8 g/dl (3.4-5.0); BILIRUBIN,TOTAL 0.7 mg/dL (0.2-1); BLOOD UREA NITROGEN 23.1 mg/dL (7-18); CALCIUM 9.3 mg/dL (8.5-10.1); CREATININE 1.2 mg/dL (0.55-1.3); POTASSIUM 3.8 mmol/L (3.5-5.1); TOT PROT 7.2 g/dl (6.4-8.2)
[2018-12-23 19:08] LABS: N-TERMINAL BNP 617.2 pg/ml (5-125)
[2018-12-23] MEDS ORDERED: dilTIAZem HCL 30 MG TABLET (FP) ONE (19:20)
[2018-12-23] MEDS ORDERED: dilTIAZem HCL 50 MG/10 ML - 10 ML VIAL ONE (19:24)
[2018-12-23] MEDS ORDERED: ENOXAPARIN NA (PORCINE) 40 MG/0.4 ML DISP.SYRIN SQ ONE (21:07)
[2018-12-23] MEDS ORDERED: ENOXAPARIN NA (PORCINE) 80 MG/0.8 ML DISP.SYRIN SQ ONE ×2 (21:09→22:11)
--- NOTE | 2018-12-23 22:16 | PDOC ---
Attending Attestation - Resident Resident Name: Yobany Solano - ED Attending Attestation I have performed the following: I have examined & evaluated the patient, The case was reviewed & discussed with the resident, I agree w/resident's findings & plan, Exceptions are as noted - HPI HPI: 12/23/18 22:16 This is a 68 year-old man with a PMH significant for sarcoidosis, peripheral neuropathy, MRSA infection of left second toe s/p distal toe amputation presents to the emergency department with 3 days of SOB. Worse at night. Denies CHF hx. Denies CAD. States he is unable to lay down. - Physicial Exam PE: 12/23/18 22:26 Vitals: Triage Vital signs reviewed General Appearance: no acute distress, well nourished well developed, Head: Atraumatic, Cardiac:Ireggularly Irregular, Lungs:Coarse breath sounds bilaterally Abdomen: Soft, non distended, normal bowel sounds, non tender to palpation Genitourinary: Rectal: Exam deferred Extremities: Full range of motion to all extremities, no cyanosis, clubbing, or edema Skin: Warm and dry, no rashes or lesions, no rash, no petechiae Psych: normal mood, normal affect - Critical Care Time Total Critical Care Time: 45 Critical Care Statement: The care of this patient involved high complexity decision making to prevent further life threatening deterioration of the patient 's condition and/or to evaluate & treat vital organ system(s) failure or risk of failure. - Medical Decision Making 12/23/18 22:24 Patient with new onset atrial fibrillation with rapid ventricular response requiring multiple rounds of IV medications for rate control. Patient requires admission given persistence of tachycardia as well as underlying medical condition necessitating inpatient care: Sarcoidosis Heart Score/ECG Review - ECG Impressions Comment:: EKG performed at 1808 demonstrates atrial fibrillation with RVR with ST depressions inferior laterally Interpreted by me.
[2018-12-23] MEDS ORDERED: dilTIAZem HCL 50 MG/10 ML - 10 ML VIAL IVPUSH PRN (22:37)
[2018-12-23] MEDS ORDERED: ALBUTEROL SO4 0.083% IH SOL 2.5 MG/3 ML VIAL.NEB. NEB PRN (22:41)
[2018-12-23] MEDS ORDERED: methylPREDNISolone NA SUCC 40 MG/1 ML VIAL IVPUSH SCH (22:45)
[2018-12-23] MEDS ORDERED: AZITHROMYCIN 250 MG TABLET PO ONE (23:00)
--- NOTE | 2018-12-23 23:59 | HP ---
CHIEF COMPLAINT: Cough PCP: Dr. Juan HISTORY OF PRESENT ILLNESS: 68 y/o male PMH COPD, sarcoidosis, peripheral neuropathy, MRSA of LEFT toe, s/p thoracostomy with 1 L fluid removal from LEFT side whom was sent to ED from Dr. Juan's office after having been found to have adventitious sounds of the lungs. Pt has remote 3 day h/o of URI with non-productive cough and mild rhinorrhea. Pt says his grandson has similar presentation(+ sick contact). He offers no additional complaints at this time. Denies cough, CP, SOB, itchy eyes , sneezing, READ. In ED pt found to be in a fib with RVR. He was given 10 IV push and 30 PO cardizem and NSR was achieved. ER course was notable for: (1) Pt entered a fib with RVR (2) 10 IV push and 30 PO cardizem given and NSR achieved (3) Full dose lovenox given 88 mg Recent Travel: [facility] PAST MEDICAL HISTORY: # COPD # Sarcoidosis # Peripheral neuropathy # MRSA of LEFT toe PAST SURGICAL HISTORY: - LEFT 2nd toe amputation (2018) - 2 RIGHT shoulder surgery - 1 LEFT shoulder surgery Social History: Smokin year with at worst 1ppd Alcohol: Social Drugs: Past use in youth of marijuana and cocaine Allergies: Sulfa (Sulfonamide Antibiotics) Allergy (Verified 11/28/18 09:39) HOME MEDICATIONS: Medication Instructions Recorded Albuterol Sulfate Inhaler - 1 - 2 inh PO PRN PRN 11/28/18 [Ventolin HFA Inhaler -] Fluticasone Prop 0.05% Nasal 50 mcg NS DAILY 11/28/18 [Flonase -] Tiotropium Br/Olodaterol HCl 2 puff .ROUTE DAILY 11/28/18 [Stiolto Respimat Inhal [place]] Amoxicillin/Potassium Clav 1 each PO BID #20 tablet 11/29/18 [Augmentin 875-125 Tablet] REVIEW OF SYSTEMS CONSTITUTIONAL: Absent: fever, chills, diaphoresis, generalized weakness, malaise, loss of appetite, weight change HEENT: Absent: rhinorrhea, nasal congestion, throat pain, throat swelling, difficulty swallowing, mouth swelling, ear pain, eye pain, visual changes CARDIOVASCULAR: Absent: chest pain, syncope, palpitations, irregular heart rate, lightheadedness , peripheral edema RESPIRATORY: Absent: cough, shortness of breath, dyspnea with exertion, orthopnea, wheezing, stridor, hemoptysis GASTROINTESTINAL: Absent: abdominal pain, abdominal distension, nausea, vomiting, diarrhea, constipation, melena, hematochezia GENITOURINARY: Absent: dysuria, frequency, urgency, hesitancy, hematuria, flank pain, genital pain MUSCULOSKELETAL: Absent: myalgia, arthralgia, joint swelling, back pain, neck pain SKIN: Absent: rash, itching, pallor HEMATOLOGIC/IMMUNOLOGIC: Absent: easy bleeding, easy bruising, lymphadenopathy, frequent infections ENDOCRINE: Absent: unexplained weight gain, unexplained weight loss, heat intolerance, cold intolerance NEUROLOGIC: Absent: headache, focal weakness or paresthesias, dizziness, unsteady gait, seizure, mental status changes, bladder or bowel incontinence PSYCHIATRIC: Absent: anxiety, depression, suicidal or homicidal ideation, hallucinations. PHYSICAL EXAMINATION Vital Signs - 24 hr 12/23/18 17:54 Temperature 99.2 F Pulse Rate 78 Respiratory 20 Rate Blood Pressure 171/89 H O2 Sat by Pulse 95 Oximetry (%) CHADS-VASc score 2 GENERAL: Awake, alert, and fully oriented, in no acute distress. HEAD: NCAT EYES: GLORIA, EOMI, sclera anicteric, conjunctiva clear. No lid lag. EARS, NOSE, THROAT: Ears normal, nares patent, oropharynx clear without exudates. Moist mucous membranes. NECK: Normal range of motion, supple without lymphadenopathy, JVD, or masses. LUNGS: BL wheezes RIGHT > LEFT. Good air entry. No accessory muscle use. HEART: Regular rate and rhythm, normal S1 and S2 without murmur, rub or gallop. ABDOMEN: Muscular, nontender, not distended, normoactive bowel sounds, no guarding, no rebound, no masses. MUSCULOSKELETAL: Normal range of motion at all joints. No bony deformities or tenderness. No CVA tenderness. UPPER EXTREMITIES: 2+ pulses, warm, well-perfused. No cyanosis. No clubbing. No peripheral edema. LOWER EXTREMITIES: 2+ pulses, warm, well-perfused. No calf tenderness. No peripheral edema. NEUROLOGICAL: Cranial nerves II-XII intact. Normal speech. Normal gait. PSYCHIATRIC: Cooperative. Good eye contact. Appropriate mood and affect. SKIN: 2x3cm ovoid nevi on middle of back. Warm, dry, normal turgor, no rashes or lesions noted, normal capillary refill. Laboratory Results - last 24 hr 12/23/18 12/23/18 12/23/18 18:26 18:26 18:26 WBC 6.2 RBC 4.87 Hgb 14.8 Hct 43.7 MCV 89.7 MCH 30.3 MCHC 33.8 RDW 13.1 Plt Count 236 MPV 7.9 Absolute Neuts (auto) 4.6 Neutrophils % 73.7 Lymphocytes % 11.4 D Monocytes % 11.5 H Eosinophils % 2.5 D Basophils % 0.9 Nucleated RBC % 0 Sodium 140 Potassium 3.8 Chloride 106 Carbon Dioxide 25 Anion Gap 8 BUN 23.1 H Creatinine 1.2 Est GFR (CKD-EPI)AfAm 70.58 Est GFR (CKD-EPI)NonAf 60.90 Random Glucose 166 H Calcium 9.3 Total Bilirubin 0.7 AST 18 ALT 24 Alkaline Phosphatase 84 Troponin I B-Natriuretic Peptide Cancelled Total Protein 7.2 Albumin 3.8 12/23/18 18:26 WBC RBC Hgb Hct MCV MCH MCHC RDW Plt Count MPV Absolute Neuts (auto) Neutrophils % Lymphocytes % Monocytes % Eosinophils % Basophils % Nucleated RBC % Sodium Potassium Chloride Carbon Dioxide Anion Gap BUN Creatinine Est GFR (CKD-EPI)AfAm Est GFR (CKD-EPI)NonAf Random Glucose Calcium Total Bilirubin AST ALT Alkaline Phosphatase Troponin I < 0.02 B-Natriuretic Peptide 617.2 H Total Protein Albumin ASSESSMENT/PLAN: 68 y/o male PMH COPD, sarcoidosis, peripheral neuropathy, MRSA of LEFT toe, s/p thoracostomy with 1 L fluid removal from LEFT side whom was sent to ED from Dr. Juan's office after having been found to have adventitious sounds of the lungs. In ED pt found to have new a fib which responded to rate control and NSR achieved. Present c/o cough congruous with sick contact. # New A fib - Cardizem 30 mg QD, add 10 mg IVBP if HR > 120 - Lovenox 1mg/kg - EKG in AM - Echo - TSH - Ed consulted cardio Dr. Cardona - Ed consulted puom Dr. Das # Bronchitis - 40 mg prednisone QD - DuoNebs - Cont. augmentin - Dextromethorphan for cough - Flu swab # COPD - Spiriva - ISS # F/E/N - No standing orders - Cont. to monitor - Low sodium diet # DVT prophylaxis -Heparin sq # Disposition - Telemetry Akil Aguirre MD Family Medical History Family Hx Cardiac Disorders: Father Family Hx Diabetes: Mother ATTENDING PHYSICIAN STATEMENT I saw and evaluated the patient. I reviewed the resident's note and discussed the case with the resident. I agree with the resident's findings and plan as documented. SUBJECTIVE: OBJECTIVE: ASSESSMENT AND PLAN:
[2018-12-24] MEDS ORDERED: guaiFENesin 200 MG/10 ML 10 ML UNIT-DOSE CUPS PO PRN (00:09)
[2018-12-24 03:35] VITALS: BMI 23.3
[2018-12-24] MEDS ORDERED: dilTIAZem HCL 30 MG TABLET (FP) PO SCH (06:00)
[2018-12-24] MEDS: INSULIN SLIDING SCALE (NOVOLOG) 1 VIAL SQ SCH ×4 (06:21→21:43)
[2018-12-24 06:34] LABS: URINE APPEARANCE CLEAR; URINE BILIRUBIN NEGATIVE (NEGATIVE); URINE COLOR YELLOW; URINE GLUCOSE (UA) NEGATIVE (NEGATIVE); URINE KETONE NEGATIVE (NEGATIVE); URINE LEUK ESTERASE NEGATIVE (NEGATIVE); URINE NITRITE NEGATIVE (NEGATIVE); URINE PROTEIN NEGATIVE (NEGATIVE); URINE UROBILINOGEN 0.2 mg/dL (0.2-1.0)
[2018-12-24 06:43] LABS: EOS % 4.2 % (0-4.5); HEMATOCRIT 40.6 % (35.4-49); HEMOGLOBIN 14.1 GM/dL (11.7-16.9); LYMPH % 25.4 % (8-40); MCH 30.9 pg (25.7-33.7); MCHC 34.7 g/dl (32.0-35.9); MEAN CELL VOLUME 88.9 fl (80-96); MEAN PLT VOLUME 8.1 fl (7.5-11.1); MONO % 12.7 % (3.8-10.2); NEUT % 56.7 % (42.8-82.8); PLATELET COUNT 228 K/MM3 (134-434); RBC 4.56 M/mm3 (4.00-5.60); WHITE BLOOD COUNT 4.8 K/mm3 (4.0-10.0)
[2018-12-24 07:01] LABS: ALBUMIN 3.4 g/dl (3.4-5.0); BILIRUBIN,TOTAL 1.2 mg/dL (0.2-1); CALCIUM 8.6 mg/dL (8.5-10.1); CREATININE 1.1 mg/dL (0.55-1.3); MAGNESIUM 2.1 mg/dL (1.8-2.4); PHOSPHOROUS 3.5 mg/dL (2.5-4.9); POTASSIUM 3.7 mmol/L (3.5-5.1); TOT PROT 6.3 g/dl (6.4-8.2)
--- NOTE | 2018-12-24 07:27 | PN ---
Teaching Attending Note Name of Resident: Akil Aguirre ATTENDING PHYSICIAN STATEMENT I saw and evaluated the patient. I reviewed the resident's note and discussed the case with the resident. I agree with the resident's findings and plan as documented. SUBJECTIVE: 68 y/o male PMH COPD, sarcoidosis, peripheral neuropathy, MRSA of LEFT toe, s/p thoracostomy with recent 1 L fluid removal from LEFT side whom was sent to ED from Dr. Juan's office after having been found to have adventitious sounds of the lungs. Reports his grandson was sick with cold. Patient c/o dry cough, malaise. OBJECTIVE: Last Vital Signs Temp Pulse Resp BP Pulse Ox 98.6 F 78 18 142/77 95 12/24/18 00:30 12/24/18 00:30 12/24/18 00:30 12/24/18 00:30 12/24/18 00:30 gen - nad, aaox3 heent -no sinus tenderness neck supple cv-s1+s2+ regular chest - coarse/bronchial breath sounds b/l abd -soft, nt ext -no pedal edema Abnormal Lab Results 12/23/18 12/23/18 12/23/18 18:26 18:26 18:26 Monocytes % 11.5 H Anion Gap BUN 23.1 H Random Glucose 166 H Total Bilirubin AST B-Natriuretic Peptide 617.2 H Total Protein 12/24/18 05:12 Monocytes % Anion Gap 6 L BUN 19.0 H Random Glucose 110 H Total Bilirubin 1.2 H AST 13 L B-Natriuretic Peptide Total Protein 6.3 L imaging reviewed -cxr with no infiltrates, flat diaphragm, no pleural effusions seen ekg showed afib with rvr initially, then nsr ASSESSMENT AND PLAN: #New onset paraxysmal afib with rvr #Bronchitis from uri - likely caught from grandson -telemetry -cardiology consult -tsh -echo -started on lovenox - patient agrees for anticoagulation. No history of bleeding. -flu swab -diltiazem 30mg q6hrs for rate control -duonebs q6hrs -prednisone 40mg pod daily -dextromethorphan prn for cough -c/w home meds -heparin sc for dvt ppx -see resident note for details
[2018-12-24] MEDS: ALBUTEROL SO4 2.5/IPRATROPIUM 0.5 INH SOL 3 ML VIAL.NEB. NEB SCH ×4 (08:10→20:20)
[2018-12-24] MEDS: AMOX TR/POT CLAV 250MG/125MG TABLETS PO SCH ×2 (08:39→17:57)
--- NOTE | 2018-12-24 09:28 | PN ---
Progress Note, Physician Chief Complaint: Still c/o cough History of Present Illness: 68 y/o male PMH COPD, sarcoidosis, peripheral neuropathy, MRSA of LEFT toe, s/p thoracostomy with 1 L fluid removal from LEFT side whom was sent to ED from Dr. Juan's office after having been found to have adventitious sounds of the lungs. Pt has remote 3 day h/o of URI with non-productive cough and mild rhinorrhea. Pt says his grandson has similar presentation(+ sick contact).In ED pt found to be in a fib with RVR. He was given 10 IV push and 30 PO cardizem and NSR was achieved. - Current Medication List Current Medications: Active Medications Albuterol Sulfate (Ventolin 0.083% Nebulizer Soln -) 1 amp NEB Q6H PRN PRN Reason: SHORT OF BREATH/WHEEZING Albuterol/Ipratropium (Duoneb -) 1 amp NEB RQID LOTTIE Amoxicillin/Clavulanate Potassium (Augmentin - 250mg Tablet) 1 tab PO BID@0800, 1730 [facility] Last Admin: 12/24/18 08:39 Dose: 1 tab Diltiazem HCl (Cardizem -) 30 mg PO TID [facility] Last Admin: 12/24/18 06:19 Dose: 30 mg Diltiazem HCl (Cardizem Injection -) 10 mg IVPUSH Q4H PRN PRN Reason: TACHYCARDIA Guaifenesin (Robitussin -) 10 ml PO Q4H PRN PRN Reason: COUGH Last Admin: 12/24/18 01:10 Dose: 10 ml Hydrochlorothiazide (Hctz -) 12.5 mg PO DAILY [facility] Insulin Aspart (Novolog Vial Sliding Scale -) 1 vial SQ ACHS [facility]; Protocol Last Admin: 12/24/18 06:21 Dose: Not Given Prednisone (Deltasone -) 40 mg PO DAILY [facility] - Objective Vital Signs: Vital Signs Temperature 98 F 12/24/18 07:00 Pulse Rate 60 12/24/18 07:00 Respiratory Rate 18 12/24/18 07:00 Blood Pressure 141/82 12/24/18 07:00 O2 Sat by Pulse Oximetry (%) 95 12/24/18 00:30 Elderly man not in distress, HEENT: Mm moist, no anemia, PERRLA EOMI NECK: No JVd No Bruit CHEST: Minimal wheezes CVS: s1S2 R no m/g/r ABD: No distention, non tender Bs + EXT: Trace edema , feet, SULFONATION EQUIPMENT OPERATOR: AOX3 non focal Labs: CBC, BMP 12/24/18 05:12 12/24/18 05:12 Problem List - Problems (1) New onset a-fib Assessment/Plan: Converted to NSR after Diltizem will F/U Cardiology recommendations Code(s): I48.91 - UNSPECIFIED ATRIAL FIBRILLATION (2) Acute hypoxemic respiratory failure Assessment/Plan: Due to Reactive airway dises cont Po abx , nebs and PO Prednisone Code(s): J96.01 - ACUTE RESPIRATORY FAILURE WITH HYPOXIA (3) HTN (hypertension) Assessment/Plan: Well controlled Code(s): I10 - ESSENTIAL (PRIMARY) HYPERTENSION (4) Sarcoid Code(s): D86.9 - SARCOIDOSIS, UNSPECIFIED
--- NOTE | 2018-12-24 09:45 | PN ---
Progress Note (short form) - Note Progress Note: PULMONARY CONSULTATION DICTATED 12/24/18 IMP COUGH,CONGESTION ACUTE ASTHMATIC BRONCHITIS NEW ONSET AFIB SARCOIDOSIS LEFT PLEURAL EFFUSION S/P THORACENTESIS EXUDATE BY PROTEIN CRITERIA, CYTOLOGY NEGATIVE PERIPHERAL NEUROPATHY MRSA DISTAL LEFT SECOND TOE PLAN MEDROL ABX INHALED BRONCHODILATORS SUPPLEMENTAL O2 RATE CONTROL PER CARDIOLOGY AC COUGH MEDS ECHO DR WEISS Problem List - Problems (1) Acute asthmatic bronchitis Code(s): J45.909 - UNSPECIFIED ASTHMA, UNCOMPLICATED (2) HTN (hypertension) Code(s): I10 - ESSENTIAL (PRIMARY) HYPERTENSION (3) New onset a-fib Code(s): I48.91 - UNSPECIFIED ATRIAL FIBRILLATION (4) Cough Code(s): R05 - COUGH (5) Sarcoid Code(s): D86.9 - SARCOIDOSIS, UNSPECIFIED (6) Toe ulcer Code(s): L97.509 - NON-PRESSURE CHRONIC ULCER OTH PRT UNSP FOOT W UNSP SEVERITY
[2018-12-24] MEDS ORDERED: guaiFENesin/CODEINE 5 ML UNIT-DOSE CUPS PO PRN (09:54)
[2018-12-24] MEDS ORDERED: ALBUTEROL SO4 0.083% IH SOL 2.5 MG/3 ML VIAL.NEB. NEB PRN (09:54)
[2018-12-24] MEDS ORDERED: AZITHROMYCIN 250 MG TABLET PO SCH (10:00)
[2018-12-24] MEDS ORDERED: predniSONE 20 MG TABLET (UD) PO SCH (10:00)
[2018-12-24] MEDS: HYDROCHLOROTHIAZIDE 12.5 MG CAPSULE (FP) PO SCH (10:18)
[2018-12-24] MEDS: methylPREDNISolone NA SUCC 40 MG/1 ML VIAL IVPUSH SCH ×3 (10:22→21:43)
--- NOTE | 2018-12-24 10:49 | CONS ---
DATE OF CONSULTATION: 12/24/2018 PULMONARY CONSULTATION REFERRING PHYSICIAN: Dr. Martin HISTORY OF PRESENT ILLNESS: Patient is a 68-year-old white male known to me from previous hospitalization with a past medical history of sarcoidosis diagnosed about 16 or 17 years ago by a lymph node biopsy, borderline diabetes, cervical cyst, history of tobacco use, quit in 1996; recent left pleural effusion, status post thoracentesis on December 08, 2018. Pleural fluid negative cytology. Chemistry is consistent with exudate by protein, as well as albumin gradient criteria, peripheral neuropathy, MRSA of the distal left 2nd toe ulcer, admitted to [facility] on December 23 with complaint of increasing shortness of breath and chest congestion. Patient states for the past 3 to 4 days he had increasing shortness of breath, non-productive cough, no wheezing. Apparently his grandson and ex- have been ill with similar illness. He went to Dr. Juan's office at which time he was noted to have increasing chest congestion, at which time he was advised to the emergency room. In the ER, he was noted to be in atrial fibrillation with rapid ventricular response. He was started on IV Cardizem and converted to normal sinus rhythm. He was placed on p.o. Cardizem, transferred up to the Medical Telemetry Unit for further management. Patient was also started on prednisone and p.o. antibiotics. Patient denies any history of occupational exposure to chemicals or fumes. There is no history of recent travel. There is no history of DVT or PE in the past. PAST MEDICAL HISTORY: Again includes COPD, sarcoidosis, peripheral neuropathy, MRSA of the left toe, left pleural effusion/exudate, cytology negative, and apparently new onset atrial fibrillation. REVIEW OF SYSTEMS: Positive cough. Positive shortness of breath. Positive chest congestion. No fever, no chills, no hemoptysis, no abdominal pain, no lower extremity edema. CURRENT MEDICATIONS: Include prednisone 40 mg daily, Augmentin 250 mg, albuterol DuoNeb, Cardizem, Robitussin, Novolog and hydrochlorothiazide. PHYSICAL EXAMINATION: General: Patient is a well-developed, well-nourished male awake, alert, in no acute distress. Vitals: He is currently afebrile. Blood pressure is 141/82, respiratory rate is 18, O2 saturation is 95% on room air. HEENT: Normocephalic, atraumatic. Neck: Supple. Heart: Regular with S1, S2. Chest: Bilateral rhonchi and wheezes throughout. Abdomen: Soft. Bowel sounds are positive. Extremities: No cyanosis or edema. LABORATORY STUDIES: WBC is 4.8, hemoglobin 14.1, hematocrit 40.6, with a platelet count of 228,000. Chemistries: BUN 19, creatinine 1.1, BNP is 617. Chest x-ray: Pleural fluid and atelectasis at the left base, clear left upper lobe and right lung. IMPRESSION: 1. Cough, chest congestion, likely acute asthmatic bronchitis, secondary to upper respiratory infection. 2. New onset atrial fibrillation. 3. Sarcoidosis. 4. Left pleural effusion, status post thoracentesis, exudate by protein, as well as albumin gradient criteria. Cytology negative. 5. Peripheral neuropathy. 6. Methicillin-resistant Staphylococcus aureus distal left 2nd toe. PLAN: IV Medrol, antibiotics, inhaled bronchodilators, supplemental O2, rate control by Cardiology, obtain echocardiogram, cough medications. RADHA WEISS M.D. [id number] MTDD
--- NOTE | 2018-12-24 12:37 | CON.CARD ---
Consult Consult Specialty:: Cardiology Referred by:: Medicine Reason for Consultation:: afib - History of Present Illness Chief Complaint: cough History of Present Illness: 68M h/o COPD, sarcoidosis, peripheral neuropathy, MRSA of LEFT toe, s/p thoracostomy with recent 1 L fluid removal from LEFT side whom was sent to ED from Dr. Juan's office with abnormal lung exam, cough with afib with RVR. Has seen Dr. Cardona for cardio. No chest pain, palps, dyspnea, dizziness. - Alcohol/Substance Use Hx Alcohol Use: Yes (SOCIAL) - Smoking History Smoking history: Former smoker Have you smoked in the past 12 months: No If you are a former smoker, when did you quit?: 1996 Home Medications - Allergies Allergies/Adverse Reactions: Allergies Allergy/AdvReac Type Severity Reaction Status Date / Time Sulfa (Sulfonamide Allergy Verified 12/24/18 00:43 Antibiotics) - Home Medications Home Medications: Ambulatory Orders Albuterol Sulfate Inhaler - [Ventolin HFA Inhaler -] 1 - 2 inh PO PRN PRN Fluticasone Prop 0.05% Nasal [Flonase -] 50 mcg NS DAILY 11/28/18 Amoxicillin/Potassium Clav [Augmentin 875-125 Tablet] 1 each PO BID #20 tablet 11/29/18 Albuterol Sulfate Inhaler - [Ventolin Hfa Inhaler -] 2 inh PO Q4H PRN 12/24/18 Amoxicillin/Potassium Clav [Augmentin 875-125 Tablet] 1 each PO BID 12/24/18 Mupirocin Ointment [Bactroban 2% Ointment -] 1 applic TP DAILY 12/24/18 Family Medical History Family History: Unremarkable Review of Systems - Review of Systems Constitutional: reports: No Symptoms Eyes: reports: No Symptoms HENT: reports: No Symptoms Neck: reports: No Symptoms Cardiovascular: reports: No Symptoms Respiratory: reports: Cough Gastrointestinal: reports: No Symptoms Genitourinary: reports: No Symptoms Musculoskeletal: reports: No Symptoms Integumentary: reports: No Symptoms Neurological: reports: No Symptoms Endocrine: reports: No Symptoms Hematology/Lymphatic: reports: No Symptoms Psychiatric: reports: No Symptoms Vital Signs: Vital Signs Temperature 98 F 12/24/18 07:00 Pulse Rate 60 12/24/18 07:00 Respiratory Rate 18 12/24/18 07:00 Blood Pressure 141/82 12/24/18 07:00 O2 Sat by Pulse Oximetry (%) 95 12/24/18 00:30 Constitutional: Yes: No Distress, Calm Eyes: Yes: Conjunctiva Clear, EOM Intact HENT: Yes: Atraumatic, Normocephalic Neck: Yes: Supple, Trachea Midline Respiratory: Yes: Regular, Rhonchi Gastrointestinal: Yes: Normal Bowel Sounds, Soft Cardiovascular: Yes: Regular Rate and Rhythm JVD: No Heart Sounds: Yes: S1, S2 Edema: No Neurological: Yes: Alert, Oriented Psychiatric: No: Agitated - Other Data Labs, Other Data: CBC, BMP 12/24/18 05:12 12/24/18 05:12 Troponin, BNP 12/23/18 12/23/18 18:26 18:26 Troponin I < 0.02 B-Natriuretic Peptide Cancelled 617.2 H Troponin, BNP 12/23/18 12/23/18 18:26 18:26 Troponin I < 0.02 B-Natriuretic Peptide Cancelled 617.2 H Assessment/Plan EKG: sinus, LAE, no ischemic changes tele: sinus afib - initially with afib with RVR, received IV diltiazem now in sinus - will change cardizem to CD - [id number] warrants AC - start eliquis 5 mg BID - echo ordered acute bronchitis, COPD - on IV steroids, manage per pulm HTN - stable, cont current meds
[2018-12-24] MEDS: APIXABAN 5 MG TABLET PO SCH ×2 (13:47→21:43)
[2018-12-24] MEDS ORDERED: PT OWN MED DRAWER 7, Y5N ONE (18:05)
--- NOTE | 2018-12-24 23:44 | EKG ---
Test Reason : Blood Pressure : / mmHG Vent. Rate : 087 BPM Atrial Rate : 087 BPM P-R Int : 184 ms QRS Dur : 090 ms QT Int : 346 ms P-R-T Axes : 068 067 047 degrees QTc Int : 416 ms NORMAL SINUS RHYTHM POSSIBLE LEFT ATRIAL ENLARGEMENT BORDERLINE ECG WHEN COMPARED WITH ECG OF 30-JAN-2018 00:07, NO SIGNIFICANT CHANGE WAS FOUND Confirmed by ABRAM NIXON MD ([id number]) on 12/24/2018 11:44:23 PM Referred By: Confirmed By:ABRAM NIXON MD
[2018-12-25] MEDS: methylPREDNISolone NA SUCC 40 MG/1 ML VIAL IVPUSH SCH ×4 (03:34→21:42)
[2018-12-25 06:50] LABS: BASO % 0.1 % (0-2.0); HEMATOCRIT 44.1 % (35.4-49); HEMOGLOBIN 15.1 GM/dL (11.7-16.9); LYMPH % 6.1 % (8-40); MCH 30.6 pg (25.7-33.7); MCHC 34.3 g/dl (32.0-35.9); MEAN CELL VOLUME 89.1 fl (80-96); MEAN PLT VOLUME 8.4 fl (7.5-11.1); MONO % 1.2 % (3.8-10.2); NEUT % 92.6 % (42.8-82.8); PLATELET COUNT 263 K/MM3 (134-434); RBC 4.95 M/mm3 (4.00-5.60); RDW 12.7 % (11.9-15.9); WHITE BLOOD COUNT 8.3 K/mm3 (4.0-10.0)
[2018-12-25] MEDS: INSULIN SLIDING SCALE (NOVOLOG) 1 VIAL SQ SCH ×4 (07:00→21:44)
[2018-12-25 07:09] LABS: BLOOD UREA NITROGEN 27.6 mg/dL (7-18); CALCIUM 9.2 mg/dL (8.5-10.1); CREATININE 1.2 mg/dL (0.55-1.3); POTASSIUM 4.2 mmol/L (3.5-5.1)
[2018-12-25] MEDS: ALBUTEROL SO4 2.5/IPRATROPIUM 0.5 INH SOL 3 ML VIAL.NEB. NEB SCH ×4 (08:23→20:36)
--- NOTE | 2018-12-25 08:54 | PN ---
Teaching Attending Note Name of Resident: Kim Michaud ATTENDING PHYSICIAN STATEMENT I saw and evaluated the patient. I reviewed the resident's note and discussed the case with the resident. I agree with the resident's findings and plan as documented. SUBJECTIVE: OBJECTIVE: Vital Signs Temperature 98.3 F 12/25/18 06:00 Pulse Rate 73 12/25/18 06:00 Respiratory Rate 20 12/25/18 06:00 Blood Pressure 154/78 12/25/18 06:00 O2 Sat by Pulse Oximetry (%) 93 L 12/24/18 21:00 Elderly man not in distress, HEENT: Mm moist, no anemia, PERRLA EOMI NECK: No JVd No Bruit CHEST: B/L Coarse crepts CVS: s1S2 R no m/g/r ABD: No distention, non tender Bs + EXT: Trace edema , feet, RADIO TIME BUYER: AOX3 non focal CBC, BMP 12/25/18 05:18 12/25/18 05:18 ASSESSMENT AND PLAN: 68 y/o male PMH COPD, sarcoidosis, peripheral neuropathy, MRSA of LEFT toe, s/p thoracostomy with 1 L fluid removal from LEFT side whom was sent to ED from Dr. Juan's office after having been found to have adventitious sounds of the lungs. Pt has remote 3 day h/o of URI with non-productive cough and mild rhinorrhea. Pt says his grandson has similar presentation(+ sick contact).In ED pt found to be in a fib with RVR. He was given 10 IV push and 30 PO cardizem and NSR was achieved. Problem List - Problems (1) New onset a-fib Assessment/Plan: Converted to NSR after Diltizem, Apaxiban F/U ECHO evaliuted by cardiology consult. Code(s): I48.91 - UNSPECIFIED ATRIAL FIBRILLATION (2) Acute hypoxemic respiratory failure Assessment/Plan: Due to Reactive airway disease cont Po abx , nebs and IV steroids switch to Po in am as per pulmonary recommendations. Code(s): J96.01 - ACUTE RESPIRATORY FAILURE WITH HYPOXIA (3) HTN (hypertension) Assessment/Plan: Well controlled Code(s): I10 - ESSENTIAL (PRIMARY) HYPERTENSION (4) Sarcoid Assessment/Plan: Chronic will F/U with his Pulmologist.last Ct chest was done on 11/04/2018 Code(s): D86.9 - SARCOIDOSIS, UNSPECIFIED
--- NOTE | 2018-12-25 09:12 | PN ---
Progress Note, Physician History of Present Illness: PULMONARY ALERT,FEELING BETTER,LESS DYSPNEIC,LESS COUGH - Current Medication List Current Medications: Active Medications Albuterol Sulfate (Ventolin 0.083% Nebulizer Soln -) 1 amp NEB Q4H PRN PRN Reason: SHORT OF BREATH/WHEEZING Albuterol/Ipratropium (Duoneb -) 1 amp NEB RQID [facility] Last Admin: 12/25/18 08:23 Dose: 1 amp Amoxicillin/Clavulanate Potassium (Augmentin - 250mg Tablet) 1 tab PO BID@0800, 1730 [facility] Last Admin: 12/24/18 17:57 Dose: 1 tab Apixaban (Eliquis -) 5 mg PO BID [facility] Last Admin: 12/24/18 21:43 Dose: 5 mg Diltiazem HCl (Cardizem Injection -) 10 mg IVPUSH Q4H PRN PRN Reason: TACHYCARDIA Diltiazem HCl (Cardizem Cd -) 120 mg PO DAILY [facility] Last Admin: 12/24/18 14:35 Dose: 120 mg Guaifenesin/Codeine Phosphate (Robitussin Ac -) 10 ml PO Q8H PRN PRN Reason: COUGH Hydrochlorothiazide (Hctz -) 12.5 mg PO DAILY [facility] Last Admin: 12/24/18 10:18 Dose: 12.5 mg Insulin Aspart (Novolog Vial Sliding Scale -) 1 vial SQ ACHS [facility]; Protocol Last Admin: 12/25/18 07:00 Dose: 4 units Methylprednisolone Sodium Succinate (Solu-Medrol -) 40 mg IVPUSH Q6H-IV [facility] Last Admin: 12/25/18 03:34 Dose: 40 mg - Objective Vital Signs: Vital Signs Temperature 98.3 F 12/25/18 06:00 Pulse Rate 73 12/25/18 06:00 Respiratory Rate 20 12/25/18 06:00 Blood Pressure 154/78 12/25/18 06:00 O2 Sat by Pulse Oximetry (%) 93 L 12/24/18 21:00 Constitutional: Yes: Well Nourished, Calm Eyes: Yes: WNL HENT: Yes: WNL Neck: Yes: WNL Cardiovascular: Yes: Regular Rate and Rhythm, S1, S2 Respiratory: Yes: Wheezes (BILATERAL WHEEZES) Gastrointestinal: Yes: Normal Bowel Sounds, Soft Extremities: Yes: WNL Edema: No Labs: CBC, BMP 12/25/18 05:18 12/25/18 05:18 Problem List - Problems (1) Acute asthmatic bronchitis Code(s): J45.909 - UNSPECIFIED ASTHMA, UNCOMPLICATED (2) HTN (hypertension) Code(s): I10 - ESSENTIAL (PRIMARY) HYPERTENSION (3) New onset a-fib Code(s): I48.91 - UNSPECIFIED ATRIAL FIBRILLATION (4) Cough Code(s): R05 - COUGH (5) Sarcoid Code(s): D86.9 - SARCOIDOSIS, UNSPECIFIED (6) Toe ulcer Code(s): L97.509 - NON-PRESSURE CHRONIC ULCER OTH PRT UNSP FOOT W UNSP SEVERITY Assessment/Plan IMP COUGH,CONGESTION ACUTE ASTHMATIC BRONCHITIS NEW ONSET AFIB SARCOIDOSIS LEFT PLEURAL EFFUSION S/P THORACENTESIS EXUDATE BY PROTEIN CRITERIA, CYTOLOGY NEGATIVE PERIPHERAL NEUROPATHY MRSA DISTAL LEFT SECOND TOE PLAN MEDROL SAME DOSE,START PREDNISONE 50mg PO IN AM IF PT CONTINUE TO IMPROVE ABX INHALED BRONCHODILATORS SUPPLEMENTAL O2 RATE CONTROL PER CARDIOLOGY AC COUGH MEDS ECHO DR WEISS Problem List - Problems (1) Acute asthmatic bronchitis Code(s): J45.909 - UNSPECIFIED ASTHMA, UNCOMPLICATED (2) HTN (hypertension) Code(s): I10 - ESSENTIAL (PRIMARY) HYPERTENSION (3) New onset a-fib Code(s): I48.91 - UNSPECIFIED ATRIAL FIBRILLATION (4) Cough Code(s): R05 - COUGH (5) Sarcoid Code(s): D86.9 - SARCOIDOSIS, UNSPECIFIED (6) Toe ulcer Code(s): L97.509 - NON-PRESSURE CHRONIC ULCER OTH PRT UNSP FOOT W UNSP SEVERITY
[2018-12-25] MEDS ORDERED: PT OWN MED DRAWER 7, Y5N ONE ×2 (09:57→18:03)
[2018-12-25] MEDS: AMOX TR/POT CLAV 250MG/125MG TABLETS PO SCH ×2 (10:03→18:22)
[2018-12-25] MEDS: APIXABAN 5 MG TABLET PO SCH ×2 (10:04→21:42)
[2018-12-25] MEDS: HYDROCHLOROTHIAZIDE 12.5 MG CAPSULE (FP) PO SCH (10:04)
[2018-12-25 10:37] LABS: ANISOCYTOSIS 0; HELMET CELLS 0; HOWELL-JOLLY BODIES 0; MACROCYTOSIS 0; OVALOCYTE 0; PLATELET ESTIMATE NORMAL; ROULEAU 0; SICKELED CELLS 0; TARGET CELLS 0; TEAR DROP CELLS 0; TOXIC GRANULATION 0
--- NOTE | 2018-12-25 13:01 | PN ---
Progress Note (short form) - Note Progress Note: s: breathing better. no chest pain, palps, dizziness Current Medications Albuterol Sulfate (Ventolin 0.083% Nebulizer Soln -) 1 amp NEB Q4H PRN PRN Reason: SHORT OF BREATH/WHEEZING Albuterol/Ipratropium (Duoneb -) 1 amp NEB RQID [facility] Last Admin: 12/25/18 08:23 Dose: 1 amp Amoxicillin/Clavulanate Potassium (Augmentin - 250mg Tablet) 1 tab PO BID@0800, 1730 [facility] Last Admin: 12/25/18 10:03 Dose: 1 tab Apixaban (Eliquis -) 5 mg PO BID [facility] Last Admin: 12/25/18 10:04 Dose: 5 mg Diltiazem HCl (Cardizem Injection -) 10 mg IVPUSH Q4H PRN PRN Reason: TACHYCARDIA Diltiazem HCl (Cardizem Cd -) 120 mg PO DAILY [facility] Last Admin: 12/25/18 10:04 Dose: 120 mg Guaifenesin/Codeine Phosphate (Robitussin Ac -) 10 ml PO Q8H PRN PRN Reason: COUGH Hydrochlorothiazide (Hctz -) 12.5 mg PO DAILY [facility] Last Admin: 12/25/18 10:04 Dose: 12.5 mg Insulin Aspart (Novolog Vial Sliding Scale -) 1 vial SQ ACHS [facility]; Protocol Last Admin: 12/25/18 12:42 Dose: 4 units Methylprednisolone Sodium Succinate (Solu-Medrol -) 40 mg IVPUSH Q6H-IV [facility] Last Admin: 12/25/18 10:04 Dose: 40 mg Vital Signs Period Temp Pulse Resp BP Sys/Davis Pulse Ox Last 24 Hr 97.8 F-98.8 F 61-94 20-22 139-154/68-78 93 Constitutional: Yes: No Distress, Calm Eyes: Yes: Conjunctiva Clear, EOM Intact HENT: Yes: Atraumatic, Normocephalic Neck: Yes: Supple, Trachea Midline Respiratory: Yes: Regular, Rhonchi, +diffuse exp wheezes Gastrointestinal: Yes: Normal Bowel Sounds, Soft Cardiovascular: Yes: Regular Rate and Rhythm JVD: No Heart Sounds: Yes: S1, S2 Edema: No Neurological: Yes: Alert, Oriented Psychiatric: No: Agitated Assessment/Plan EKG: sinus, LAE, no ischemic changes tele: sinus afib - initially with afib with RVR, received IV diltiazem now in sinus - cont cardizem CD, eliquis 5 mg BID - echo pending acute bronchitis, COPD - on IV steroids, manage per pulm HTN - stable, cont current meds
--- NOTE | 2018-12-25 14:14 | PN ---
Physical Exam: SUBJECTIVE: Patient seen and examined this AM. No palpitations or chest pain overnight. No new complaints. OBJECTIVE: Vital Signs Period Temp Pulse Resp BP Sys/Davis Pulse Ox Last 24 Hr 97.8 F-98.8 F 61-94 20-22 139-154/68-78 93 GENERAL: A&Ox3, NAD HEAD: NCAT EYES: PERRL, EOMI ENT: moist mucous membranes NECK: Supple. LUNGS: Rhonchi throughout, upper lobe wheezes HEART: Regular rate and rhythm, S1, S2 without murmur ABDOMEN: Soft, nontender, nondistended, + bowel sounds, no guarding, no rebound EXTREMITIES: 2+ pulses, No edema. NEUROLOGICAL: Cranial nerves II through XII grossly intact. Normal speech. SKIN: Warm, dry Laboratory Last Values WBC 8.3 K/mm3 (4.0-10.0) 12/25/18 05:18 RBC 4.95 M/mm3 (4.00-5.60) 12/25/18 05:18 Hgb 15.1 GM/dL (11.7-16.9) 12/25/18 05:18 Hct 44.1 % (35.4-49) 12/25/18 05:18 MCV 89.1 fl (80-96) 12/25/18 05:18 MCH 30.6 pg (25.7-33.7) 12/25/18 05:18 MCHC 34.3 g/dl (32.0-35.9) 12/25/18 05:18 RDW 12.7 % (11.9-15.9) 12/25/18 05:18 Plt Count 263 K/MM3 (134-434) 12/25/18 05:18 MPV 8.4 fl (7.5-11.1) 12/25/18 05:18 Absolute Neuts (auto) 7.7 K/mm3 (1.5-8.0) 12/25/18 05:18 Neutrophils % 92.6 % (42.8-82.8) H D 12/25/18 05:18 Neutrophils % (Manual) 91.0 % (42.8-82.8) H 12/25/18 05:18 Band Neutrophils % 0.0 % 12/25/18 05:18 Lymphocytes % 6.1 % (8-40) L D 12/25/18 05:18 Lymphocytes % (Manual) 8.0 % (8-40) 12/25/18 05:18 Monocytes % 1.2 % (3.8-10.2) L D 12/25/18 05:18 Monocytes % (Manual) 1 % (3.8-10.2) L 12/25/18 05:18 Eosinophils % 0.0 % (0-4.5) D 12/25/18 05:18 Eosinophils % (Manual) 0.0 % (0-4.5) 12/25/18 05:18 Basophils % 0.1 % (0-2.0) 12/25/18 05:18 Basophils % (Manual) 0.0 % (0-2.0) 12/25/18 05:18 Myelocytes % (Man) 0 % (0-2) 12/25/18 05:18 Promyelocytes % (Man) 0 % (0-2) 12/25/18 05:18 Blast Cells % (Manual) 0 % (0-0) 12/25/18 05:18 Nucleated RBC % 0 % (0-0) 12/25/18 05:18 Metamyelocytes 0 % (0-2) 12/25/18 05:18 Hypochromia 0 12/25/18 05:18 Toxic Granulation 0 12/25/18 05:18 Dohle Bodies 0 12/25/18 05:18 Platelet Estimate Normal 12/25/18 05:18 Polychromasia 0 12/25/18 05:18 Poikilocytosis 0 12/25/18 05:18 Basophilic Stippling 0 12/25/18 05:18 Anisocytosis 0 12/25/18 05:18 Microcytosis 0 12/25/18 05:18 Macrocytosis 0 12/25/18 05:18 Spherocytes 0 12/25/18 05:18 Sickle Cells 0 12/25/18 05:18 Target Cells 0 12/25/18 05:18 Tear Drop Cells 0 12/25/18 05:18 Ovalocytes 0 12/25/18 05:18 Stomatocytes 0 12/25/18 05:18 Helmet Cells 0 12/25/18 05:18 [place] Bodies 0 12/25/18 05:18 [place] Rings 0 12/25/18 05:18 Brian Cells 0 12/25/18 05:18 Acanthocytes (Spur) 0 12/25/18 05:18 Rouleaux 0 12/25/18 05:18 Fragmented RBCs 0 12/25/18 05:18 Schistocytes 0 12/25/18 05:18 Sodium 136 mmol/L (136-145) 12/25/18 05:18 Potassium 4.2 mmol/L (3.5-5.1) 12/25/18 05:18 Chloride 101 mmol/L (98-107) 12/25/18 05:18 Carbon Dioxide 26 mmol/L (21-32) 12/25/18 05:18 Anion Gap 9 MMOL/L (8-16) 12/25/18 05:18 BUN 27.6 mg/dL (7-18) H 12/25/18 05:18 Creatinine 1.2 mg/dL (0.55-1.3) 12/25/18 05:18 Est GFR (CKD-EPI)AfAm 70.58 12/25/18 05:18 Est GFR (CKD-EPI)NonAf 60.90 12/25/18 05:18 POC Glucometer 271 UNITS (80-120) 12/25/18 11:29 Random Glucose 220 mg/dL (74-106) H 12/25/18 05:18 Calcium 9.2 mg/dL (8.5-10.1) 12/25/18 05:18 Phosphorus 3.5 mg/dL (2.5-4.9) 12/24/18 05:12 Magnesium 2.1 mg/dL (1.8-2.4) 12/24/18 05:12 Total Bilirubin 1.2 mg/dL (0.2-1) H 12/24/18 05:12 AST 13 U/L (15-37) L 12/24/18 05:12 ALT 19 U/L (13-61) 12/24/18 05:12 Alkaline Phosphatase 74 U/L (45-117) 12/24/18 05:12 Troponin I < 0.02 ng/ml (0.00-0.05) 12/23/18 18:26 B-Natriuretic Peptide 617.2 pg/ml (5-125) H 12/23/18 18:26 Total Protein 6.3 g/dl (6.4-8.2) L 12/24/18 05:12 Albumin 3.4 g/dl (3.4-5.0) 12/24/18 05:12 TSH 2.25 uIU/ml (0.358-3.74) 12/24/18 05:12 Urine Color Yellow 12/24/18 05:00 Urine Appearance Clear 12/24/18 05:00 Urine pH 5.0 (5.0-8.0) 12/24/18 05:00 Ur Specific [place] 1.017 (1.010-1.035) 12/24/18 05:00 Urine Protein Negative (NEGATIVE) 12/24/18 05:00 Urine Glucose (UA) Negative (NEGATIVE) 12/24/18 05:00 Urine Ketones Negative (NEGATIVE) 12/24/18 05:00 Urine Blood Negative (NEGATIVE) 12/24/18 05:00 Urine Nitrite Negative (NEGATIVE) 12/24/18 05:00 Urine Bilirubin Negative (NEGATIVE) 12/24/18 05:00 Urine Urobilinogen 0.2 mg/dL (0.2-1.0) 12/24/18 05:00 Ur Leukocyte Esterase Negative (NEGATIVE) 12/24/18 05:00 Influenza A (Rapid) Negative (Negative) 12/24/18 00:31 Influenza B (Rapid) Negative (Negative) 12/24/18 00:31 Active Medications Albuterol Sulfate (Ventolin 0.083% Nebulizer Soln -) 1 amp NEB Q4H PRN PRN Reason: SHORT OF BREATH/WHEEZING Albuterol/Ipratropium (Duoneb -) 1 amp NEB RQID [facility] Last Admin: 12/25/18 08:23 Dose: 1 amp Amoxicillin/Clavulanate Potassium (Augmentin - 250mg Tablet) 1 tab PO BID@0800, 1730 [facility] Last Admin: 12/25/18 10:03 Dose: 1 tab Apixaban (Eliquis -) 5 mg PO BID [facility] Last Admin: 12/25/18 10:04 Dose: 5 mg Diltiazem HCl (Cardizem Injection -) 10 mg IVPUSH Q4H PRN PRN Reason: TACHYCARDIA Diltiazem HCl (Cardizem Cd -) 120 mg PO DAILY [facility] Last Admin: 12/25/18 10:04 Dose: 120 mg Guaifenesin/Codeine Phosphate (Robitussin Ac -) 10 ml PO Q8H PRN PRN Reason: COUGH Hydrochlorothiazide (Hctz -) 12.5 mg PO DAILY [facility] Last Admin: 12/25/18 10:04 Dose: 12.5 mg Insulin Aspart (Novolog Vial Sliding Scale -) 1 vial SQ ACHS [facility]; Protocol Last Admin: 12/25/18 12:42 Dose: 4 units Methylprednisolone Sodium Succinate (Solu-Medrol -) 40 mg IVPUSH Q6H-IV [facility] Last Admin: 12/25/18 10:04 Dose: 40 mg ASSESSMENT/PLAN: 68 y/o M with PMHx COPD (not on home O2), sarcoidosis, peripheral neuropathy, s/ p thoracostomy with 1L fluid removal, presents from his PCP's office with an abnormal lung exam, found to be in AFib with RVR in ED that converted after PO and IV Diltiazem dose. #New onset A-Fib, Rate controlled -Continue Rate control via Cardizem CD 120mg; Diltiazem IV Push for HR >120 -AC via NOAC -Echo pending -Cardio consulted, appreciate rec's -TSH elevated, will need repeat as an outpatient in 6 weeks #Bronchitis, Improving -In the setting of COPD with recent sick contact -Continue Methylprednisolone 40mg Q6H, Amoxicillin/Clavulanate 250mg BID, Bronchodilators, Guaifenesin -Supplemental O2 to maintain SpO2 > 88-92% -Pulmonary (Dr. Jett) consulted, appreciate rec's #DM -ISS BGMs ACHS #HTN -Continue HCTZ #FEN -No standing fluids -Replete lytes PRN -Low Na diet #PPx -DVT: Heparin Dispo: Monitor on Tele Visit type - Emergency Visit Emergency Visit: Yes ED Registration Date: 12/23/18 Care time: The patient presented to the Emergency Department on the above date and was hospitalized for further evaluation of their emergent condition. - New Patient This patient is new to me today: No - Critical Care Critical Care patient: No ATTENDING PHYSICIAN STATEMENT I saw and evaluated the patient. I reviewed the resident's note and discussed the case with the resident. I agree with the resident's findings and plan as documented. SUBJECTIVE: OBJECTIVE: ASSESSMENT AND PLAN:
[2018-12-26] MEDS: methylPREDNISolone NA SUCC 40 MG/1 ML VIAL IVPUSH SCH ×3 (03:06→14:46)
[2018-12-26] MEDS: INSULIN SLIDING SCALE (NOVOLOG) 1 VIAL SQ SCH ×3 (06:03→17:33)
--- NOTE | 2018-12-26 07:15 | EKG ---
Test Reason : Blood Pressure : / mmHG Vent. Rate : 134 BPM Atrial Rate : 375 BPM P-R Int : 000 ms QRS Dur : 090 ms QT Int : 282 ms P-R-T Axes : 000 074 -76 degrees QTc Int : 421 ms ATRIAL FIBRILLATION WITH RAPID VENTRICULAR RESPONSE WITH PREMATURE VENTRICULAR OR ABERRANTLY CONDUCTED COMPLEXES MARKED ST ABNORMALITY, POSSIBLE INFERIOR SUBENDOCARDIAL INJURY ABNORMAL ECG WHEN COMPARED WITH ECG OF 30-JAN-2018 00:07, ATRIAL FIBRILLATION HAS REPLACED SINUS RHYTHM VENT. RATE HAS INCREASED BY [address] NOW DEPRESSED IN INFERIOR LEADS ST NOW DEPRESSED IN LATERAL LEADS T WAVE INVERSION NOW EVIDENT IN INFERIOR LEADS T WAVE INVERSION NOW EVIDENT IN LATERAL LEADS Confirmed by ABRAM NIXON MD ([id number]) on 12/26/2018 7:15:31 AM Referred By: Confirmed By:ABRAM NIXON MD
[2018-12-26] MEDS: ALBUTEROL SO4 2.5/IPRATROPIUM 0.5 INH SOL 3 ML VIAL.NEB. NEB SCH ×3 (08:47→16:14)
[2018-12-26] MEDS: AMOX TR/POT CLAV 250MG/125MG TABLETS PO SCH ×2 (08:58→17:36)
[2018-12-26] MEDS: HYDROCHLOROTHIAZIDE 12.5 MG CAPSULE (FP) PO SCH (09:00)
[2018-12-26] MEDS: APIXABAN 5 MG TABLET PO SCH (09:01)
--- NOTE | 2018-12-26 10:24 | PN ---
Progress Note, Physician Chief Complaint: cough History of Present Illness: cough improved with steroids. denies sob. no cp, palp - Current Medication List Current Medications: Active Medications Albuterol Sulfate (Ventolin 0.083% Nebulizer Soln -) 1 amp NEB Q4H PRN PRN Reason: SHORT OF BREATH/WHEEZING Albuterol/Ipratropium (Duoneb -) 1 amp NEB RQID [facility] Last Admin: 12/26/18 08:47 Dose: 1 amp Amoxicillin/Clavulanate Potassium (Augmentin - 250mg Tablet) 1 tab PO BID@0800, 1730 [facility] Last Admin: 12/26/18 08:58 Dose: 1 tab Apixaban (Eliquis -) 5 mg PO BID [facility] Last Admin: 12/26/18 09:01 Dose: 5 mg Diltiazem HCl (Cardizem Injection -) 10 mg IVPUSH Q4H PRN PRN Reason: TACHYCARDIA Diltiazem HCl (Cardizem Cd -) 120 mg PO DAILY [facility] Last Admin: 12/26/18 09:00 Dose: 120 mg Guaifenesin/Codeine Phosphate (Robitussin Ac -) 10 ml PO Q8H PRN PRN Reason: COUGH Last Admin: 12/25/18 21:44 Dose: 10 ml Hydrochlorothiazide (Hctz -) 12.5 mg PO DAILY [facility] Last Admin: 12/26/18 09:00 Dose: 12.5 mg Insulin Aspart (Novolog Vial Sliding Scale -) 1 vial SQ [facility]; Protocol Last Admin: 12/26/18 06:03 Dose: 4 units Methylprednisolone Sodium Succinate (Solu-Medrol -) 40 mg IVPUSH Q6H-IV [facility] Last Admin: 12/26/18 09:02 Dose: 40 mg - Objective Vital Signs: Vital Signs Temperature 98.4 F 12/26/18 05:58 Pulse Rate 72 12/26/18 05:58 Respiratory Rate 20 12/26/18 08:14 Blood Pressure 144/73 12/26/18 05:58 O2 Sat by Pulse Oximetry (%) 94 L 12/26/18 08:14 Constitutional: Yes: Well Nourished, No Distress, Calm Cardiovascular: Yes: Regular Rate and Rhythm, S1, S2. No: Gallop, Murmur Respiratory: Yes: Regular, CTA Bilaterally (anteriorly (having echo done)). No : Accessory Muscle Use Extremities: No: Cold Edema: No Neurological: Yes: Alert, Oriented Psychiatric: No: Agitated Labs: CBC, BMP 12/25/18 05:18 12/25/18 05:18 Assessment/Plan EKG: sinus, LAE, no ischemic changes tele: sinus, NSVT x 3b afib - initially with afib with RVR, received IV diltiazem now in sinus - cont cardizem CD, eliquis 5 mg BID - echo pending - routine repletion K/Mag per usual goals acute bronchitis, COPD - on IV steroids, manage per pulm HTN - mildly elevated, on steroids - same meds, observe trend from cardiac standpoint, if his echo is ok he is ready for d/c (once resp status stable off IV steroids) outpt cardio f/u
--- NOTE | 2018-12-26 11:02 | PN ---
Progress Note, Physician History of Present Illness: PULMONARY ALERT,FEELING BETTER,LESS COUGH,DYSPNEA IMPROVED-CP - Current Medication List Current Medications: Active Medications Albuterol Sulfate (Ventolin 0.083% Nebulizer Soln -) 1 amp NEB Q4H PRN PRN Reason: SHORT OF BREATH/WHEEZING Albuterol/Ipratropium (Duoneb -) 1 amp NEB RQID [facility] Last Admin: 12/26/18 08:47 Dose: 1 amp Amoxicillin/Clavulanate Potassium (Augmentin - 250mg Tablet) 1 tab PO BID@0800, 1730 [facility] Last Admin: 12/26/18 08:58 Dose: 1 tab Apixaban (Eliquis -) 5 mg PO BID [facility] Last Admin: 12/26/18 09:01 Dose: 5 mg Diltiazem HCl (Cardizem Injection -) 10 mg IVPUSH Q4H PRN PRN Reason: TACHYCARDIA Diltiazem HCl (Cardizem Cd -) 120 mg PO DAILY [facility] Last Admin: 12/26/18 09:00 Dose: 120 mg Guaifenesin/Codeine Phosphate (Robitussin Ac -) 10 ml PO Q8H PRN PRN Reason: COUGH Last Admin: 12/25/18 21:44 Dose: 10 ml Hydrochlorothiazide (Hctz -) 12.5 mg PO DAILY [facility] Last Admin: 12/26/18 09:00 Dose: 12.5 mg Insulin Aspart (Novolog Vial Sliding Scale -) 1 vial SQ ACHS [facility]; Protocol Last Admin: 12/26/18 06:03 Dose: 4 units Methylprednisolone Sodium Succinate (Solu-Medrol -) 40 mg IVPUSH Q6H-IV [facility] Last Admin: 12/26/18 09:02 Dose: 40 mg - Objective Vital Signs: Vital Signs Temperature 97.8 F 12/26/18 10:00 Pulse Rate 88 12/26/18 10:00 Respiratory Rate 18 12/26/18 10:00 Blood Pressure 126/77 12/26/18 10:00 O2 Sat by Pulse Oximetry (%) 94 L 12/26/18 08:14 Constitutional: Yes: Well Nourished, Calm Eyes: Yes: WNL HENT: Yes: WNL Neck: Yes: WNL Cardiovascular: Yes: Regular Rate and Rhythm, S1, S2 Respiratory: Yes: Wheezes (LESS WHEEZES BILATERALLY) Gastrointestinal: Yes: Normal Bowel Sounds, Soft Edema: Yes Peripheral Pulses WNL: No Labs: CBC, BMP Problem List - Problems (1) Acute asthmatic bronchitis Code(s): J45.909 - UNSPECIFIED ASTHMA, UNCOMPLICATED (2) HTN (hypertension) Code(s): I10 - ESSENTIAL (PRIMARY) HYPERTENSION (3) New onset a-fib Code(s): I48.91 - UNSPECIFIED ATRIAL FIBRILLATION (4) Cough Code(s): R05 - COUGH (5) Sarcoid Code(s): D86.9 - SARCOIDOSIS, UNSPECIFIED (6) Toe ulcer Code(s): L97.509 - NON-PRESSURE CHRONIC ULCER OTH PRT UNSP FOOT W UNSP SEVERITY Assessment/Plan IMP COUGH,CONGESTION ACUTE ASTHMATIC BRONCHITIS NEW ONSET AFIB SARCOIDOSIS LEFT PLEURAL EFFUSION S/P THORACENTESIS EXUDATE BY PROTEIN CRITERIA, CYTOLOGY NEGATIVE PERIPHERAL NEUROPATHY MRSA DISTAL LEFT SECOND TOE PLAN PREDNISONE 50mg PO DAILY ABX INHALED BRONCHODILATORS SUPPLEMENTAL O2 RATE CONTROL PER CARDIOLOGY AC COUGH MEDS ECHO DR WEISS Problem List - Problems (1) Acute asthmatic bronchitis Code(s): J45.909 - UNSPECIFIED ASTHMA, UNCOMPLICATED (2) HTN (hypertension) Code(s): I10 - ESSENTIAL (PRIMARY) HYPERTENSION (3) New onset a-fib Code(s): I48.91 - UNSPECIFIED ATRIAL FIBRILLATION (4) Cough Code(s): R05 - COUGH (5) Sarcoid Code(s): D86.9 - SARCOIDOSIS, UNSPECIFIED (6) Toe ulcer Code(s): L97.509 - NON-PRESSURE CHRONIC ULCER OTH PRT UNSP FOOT W UNSP SEVERITY
[2018-12-26] MEDS ORDERED: predniSONE 40 MG, predniSONE 10 MG PO SCH (11:15)
--- NOTE | 2018-12-26 14:26 | PN ---
Teaching Attending Note Name of Resident: Steven Dasilva ATTENDING PHYSICIAN STATEMENT I saw and evaluated the patient. I reviewed the resident's note and discussed the case with the resident. I agree with the resident's findings and plan as documented. SUBJECTIVE: Patient has no complaints and wants to go home. OBJECTIVE: Vital Signs Period Temp Pulse Resp BP Sys/Davis Pulse Ox Last 24 Hr 97.8 F-98.6 F 72-106 18-20 126-158/66-85 94-94 HEART: S1S2, RRR LUNGS: Clear ABDOMEN: Soft, non-tender, non-distended, normal BS EXTREMITIES: No edema Laboratory Results - last 24 hr 12/25/18 12/25/18 12/26/18 17:57 21:40 05:45 POC Glucometer 326 335 214 12/26/18 11:55 POC Glucometer 300 Current Medications Generic Name Dose Route Start Last Admin Trade Name Freq PRN Reason Stop Dose Admin Albuterol Sulfate 1 amp 12/24/18 09:54 Ventolin 0.083% Nebulizer Soln - NEB Q4H PRN SHORT OF BREATH/WHEEZING Albuterol/Ipratropium 1 amp 12/24/18 08:00 12/26/18 12:27 Duoneb - NEB 1 amp RQID [facility] Administration Amoxicillin/Clavulanate Potassium 1 tab 12/24/18 08:00 12/26/18 08:58 Augmentin - 250mg Tablet PO 1 tab BID@0800,1730 [facility] Administration Apixaban 5 mg 12/24/18 12:45 12/26/18 09:01 Eliquis - PO 5 mg BID [facility] Administration Diltiazem HCl 10 mg 12/23/18 22:37 Cardizem Injection - IVPUSH Q4H PRN [facility] Diltiazem HCl 120 mg 12/24/18 14:00 12/26/18 09:00 Cardizem Cd - PO 120 mg DAILY [facility] Administration Guaifenesin/Codeine Phosphate 10 ml 12/24/18 09:54 12/25/18 21:44 Robitussin Ac - PO 10 ml Q8H PRN Administration COUGH Hydrochlorothiazide 12.5 mg 12/24/18 10:00 12/26/18 09:00 Hctz - PO 12.5 mg DAILY [facility] Administration Insulin Aspart 1 vial 12/24/18 07:00 12/26/18 12:13 Novolog Vial Sliding Scale - SQ 6 units ACHS [facility] Administration Protocol Methylprednisolone Sodium Succinate 40 mg 12/24/18 10:00 12/26/18 09:02 Solu-Medrol - IVPUSH 12/26/18 17:00 40 mg Q6H-IV [facility] Administration Prednisone 40 mg/ Prednisone 50 mg 12/27/18 10:00 10 mg PO DAILY [facility] ASSESSMENT AND PLAN: This is a 68 year old man with a history of HTN, sarcoidosis, type 2 DM, peripheral neuropathy who presented to the ED from his PCP's office because of an abnormal lung exam. 1. Paroxysmal atrial fib - Remains in sinus rhythm - Continue Cardizem CD, Eliquis - Echo shows normal LV, LVEF 60-65%, normal RV, mild MR, mild TR, small pericardial effusion, pleural effusion 2. Acute asthmatic bronchitis - Change SoluMedrol to Prednisone - Continue Duoneb, Augmentin 3. HTN - Continue Cardizem CD, HCTZ 4. Sarcoidosis with left pleural effusion - Had recent thoracentesis - pleural fluid exudative with negative cytology 5. Type 2 DM with peripheral neuropathy - Continue Novolog sliding scale
--- NOTE | 2018-12-26 15:52 | ECHO ---
Name: WILLIAM JEONG Exam:Adult Echocardiogram Study Date: 12/26/2018 10:16 AM Age: 68 yrs Reason For Study: new onset a fib Height: 76 in Weight: 195 lb BSA: 2.2 m2 MMode/2D Measurements & Calculations IVSd: 0.67 cm Ao root diam: 4.1 cm LVIDd: 5.8 cm LA dimension: 3.8 cm LVIDs: 3.3 cm ACS: 1.5 cm LVPWd: 0.91 cm IVSs: 1.2 cm LVPWs: 1.5 cm EDV(Teich): 163.5 ml ESV(Teich): 43.6 ml Doppler Measurements & Calculations MV E max caleb: 74.5 cm/sec Ao V2 max: 171.6 cm/sec MV A max caleb: 89.1 cm/sec Ao max P.8 mmHg MV E/A: 0.84 Ao V2 mean: 129.9 cm/sec Ao mean P.5 mmHg Ao V2 VTI: 35.3 cm TR max caleb: 281.7 cm/sec Med Peak E' Caleb: 7.6 cm/sec TR max P.8 mmHg Med E/e': 9.9 Lat Peak E' Caleb: 9.1 cm/sec Lat E/e': 8.2 Procedure A complete two-dimensional transthoracic echocardiogram was performed (2D, M-mode, Doppler and color flow Doppler). Technically limited study. Left Ventricle The left ventricle is normal in size. Left ventricular systolic function is normal. Ejection Fraction = 60- 65%. No regional wall motion abnormalities noted. Right Ventricle The right ventricle is normal size. The right ventricular systolic function is normal. Atria The left atrial size is normal. Right atrial size is normal. Mitral Valve There is mild mitral valve thickening. There is mild mitral annular calcification. There is mild mitr al regurgitation. Tricuspid Valve The tricuspid valve is normal in structure and function. There is mild tricuspid regurgitation. Pulmo nary artery systolic pressure is at least 37 mmHg if RA pressure is assumed 3 mmHg (IVC was not clearly vi sualized to assess RA pressure). Aortic Valve There is mild aortic sclerosis.;. No aortic regurgitation is present. Pulmonic Valve The pulmonic valve is not well visualized. Great Vessels Moderate aortic root dilatation. Pericardium/Pleura Small pericardial effusion (<1cm). There is a pleural effusion present. Interpretation Summary Technically limited study The left ventricle is normal in size. Left ventricular systolic function is normal. No regional wall motion abnormalities noted. Ejection fraction = 60-65% The right ventricular systolic function is normal. The left atrial size is normal. Right atrial size is normal. There is mild mitral valve thickening. There is mild mitral annular calcification. There is mild mitral regurgitation. There is mild tricuspid regurgitation. Pulmonary artery systolic pressure is at least 37 mmHg if RA pressure is assumed 3 mmHg (IVC was not clearly visualized to assess RA pressure) There is mild aortic sclerosis.; Moderate aortic root dilatation. Small pericardial effusion (<1cm) There is a pleural effusion present. When compared to study dated 10/25/18, LVEF appears to be increased Benjamin Doll MD 12/26/2018 03:52 PM
[2018-12-26 19:05] VITALS: BP 150/71; PULSE 92; TEMP 97.6
--- NOTE | 2018-12-26 22:57 | DS ---
Physical Exam: SUBJECTIVE: Patient seen and examined OBJECTIVE: Vital Signs Period Temp Pulse Resp BP Sys/Davis Pulse Ox Last 24 Hr 97.6 F-98.4 F 72-106 18-20 126-156/71-85 94 PHYSICAL EXAM GENERAL: A&Ox3, NAD HEAD: NCAT EYES: PERRL, EOMI ENT: moist mucous membranes NECK: Supple. LUNGS: mild Rhonchi throughout, upper lobe wheezes. Saturating >94% on RA HEART: Regular rate and rhythm, S1, S2 without murmur ABDOMEN: Soft, nontender, nondistended, no guarding, no rebound EXTREMITIES: DP b/l 1+ pulses, Left foot 2nd digit with 1-2cm plantar wound w/o active drainage or surrounding erythema; decreased sensation throughout feet b/l NEUROLOGICAL: Cranial nerves II through XII grossly intact. Normal speech. SKIN: Warm, dry LABS Laboratory Results - last 24 hr 12/26/18 12/26/18 12/26/18 05:45 11:55 17:13 POC Glucometer 214 300 469 12/26/18 18:33 POC Glucometer 356 HOSPITAL COURSE: 68 y/o male PMH COPD, sarcoidosis, peripheral neuropathy, MRSA of LEFT toe, s/p thoracostomy with 1 L fluid removal from LEFT side whom was sent to ED from Dr. Juan's office after having been found to have adventitious sounds of the lungs. In the ED, the patient was in Afib w/ RVR. Cardizem IV then 30mg PO was given to achieve NSR. Cardiology(Berna) was consulted who recommended cardizem cd, eqliuis for [id number], echo. The echo showed EF(60-65%), no wall motion abn , mild MR, mild TR, PASP >37mmHg. Pulmonology(Maliha) was consulted who recommended inhaled bronchodilators, solumedrol, abx, supplemental O2. The solumedrol was converted to prednisone prior to discharge. The unasyn was to be completed after a 7d course. The patient demonstrated saturations >90% on RA. Prior to discharge BGM ~469. 12U of novolog were administered with the resulting BGM ~356 after 1hr. The patient was counseled to continue monitoring the BGM ACHS with return precautions if BGM >300 for more than 2 consecutive readings. It was determined that the patient was be safe to be discharged Date of Admission:12/23/18 Date of Discharge: 12/26/18 Discharge Summary Reason For Visit: ATRIAL FIBRILLATION Condition: Stable - Instructions Diet, Activity, Other Instructions: You presented to the hospital with abnormal lung sounds and a thoracentesis showing an exudative effusion. You had an episode of hypoxia with O2 saturation at 90%. The drapery and upholstery estimator recommended oral steroids and antibiotics for asthmatic bronchitis. In the emergency room you developed atrial fibrillation. The manager staffing recommended starting Eliquis and Cardizem. An echocardiogram was suggestive of pulmonary hypertension. Follow up with the following physicians: 1. Dr. Emerson(PCP) in one week, please call to schedule follow up to further manage your chronic conditions 2. Dr. Montes(Slot Service Specialist) in one week, please call to schedule follow up to discuss continued treatment of your atrial fibrillation 3. Dr. Palmer(Switchboard Clerk) in one week, please call to schedule follow up to discuss possible need for continued steroid usage, discussion of your pulmonary hypertension Medication Changes: 1. NEW medications for your Atrial Fibrillation: apixaban[ELIQUIS] 5mg twice a day, diltiazem cd[CARDIZEM] 120mg daily 2. NEW medications for your asthmatic bronchitis: Augmentin 250mg twice a day for 4 more days 3. Prednisone[DELTASONE] taper as follows -50mg x 2 days (12/27-12/28) -40mg x 2 days (12/29-12/30) -30mg x 2 days (12/31-01/01) -20mg x 2 days (01/02-01/03) -10mg x 2 days (01/04-01/05) Additional Care: - please check your Blood Sugar at home with a glucometer: -- check your glucose level tonight, before breakfast, before lunch, and before diner -- if your blood sugars are elevated for more than two readings please call our office or go to the ER for further treatment - maintain a low salt diet, avoid sugary drinks - Please continue to monitor your diet as you need to intake less sugar and drink plenty of fluids. - Continue all your other medications as prescribed Please return to the ER if you have any signs or symptoms of chest pain, shortness of breath, uncontrollable fever, chills, nausea, vomiting, numbness, tingling, or weakness in any part of your body, changes in vision, or slurred speech. Please return to the ER if symptoms persist, worsen, or new symptoms arise. Referrals: Teddy Montes MD [Staff Physician] - Nitesh Juan MD [Primary Care Provider] - Jack Palmer MD [Staff Physician] - Disposition: HOME - Home Medications Comprehensive Discharge Medication List: Ambulatory Orders Fluticasone Prop 0.05% Nasal [Flonase -] 50 mcg NS DAILY 11/28/18 Albuterol Sulfate Inhaler - [Ventolin HFA Inhaler -] 2 inh PO Q4H PRN 12/24/18 Mupirocin Ointment [Bactroban 2% Ointment -] 1 applic TP DAILY 12/24/18 Amox-Tr/K Cl [Augmentin 250-125mg Tablet -] 1 tab PO BID@0800,1730 #8 tablet Apixaban [Eliquis -] 5 mg PO BID #60 tablet 12/26/18 Diltiazem Cd [Cardizem Cd -] 120 mg PO DAILY #30 cap.cd.24h 12/26/18 Hydrochlorothiazide [Hctz -] 12.5 mg PO DAILY 30 Days #30 cap 12/26/18 predniSONE [Deltasone -] See Taper PO DAILY #30 tablet 12/26/18 ATTENDING PHYSICIAN STATEMENT I saw and evaluated the patient. I reviewed the resident's note and discussed the case with the resident. I agree with the resident's findings and plan as documented. SUBJECTIVE: OBJECTIVE: ASSESSMENT AND PLAN:
[2018-12-27] MEDS ORDERED: predniSONE 40 MG, predniSONE 10 MG PO SCH (10:00)
[2018-12-27] MEDS ORDERED: predniSONE 20 MG TABLET (UD) PO SCH (10:00)
== END 2018-12-26 19:23 | disposition home or self-care (01) | DRG 191 ==
LOC: JER 17:50 → JERBED 22:38 → J4W 12-24 00:59
PROVIDERS: ADMIT Internal Medicine; ATTEND Internal Medicine
DX: J44.0 Chronic obstructive pulmonary disease with (acute) lower respiratory infection (principal); J90 Pleural effusion, not elsewhere classified; I31.3 Pericardial effusion (noninflammatory); I48.0 Paroxysmal atrial fibrillation; J20.9 Acute bronchitis, unspecified; D86.9 Sarcoidosis, unspecified; Z87.891 Personal history of nicotine dependence; E11.42 Type 2 diabetes mellitus with diabetic polyneuropathy; L97.509 Non-pressure chronic ulcer of other part of unspecified foot with unspecified severity
CPT/HCPCS: 36415; 71046-TC-FY; 80048; 80053; 81003; 82962; 83735; 83880; 84100; 84443; 84484; 85025; 87070; 87205; 87804; 93005; 93010; 93306-TC; 94640; 99284-25

== ENCOUNTER 2024-10-22 09:06 | Inpatient (IN) | payer OTHER, MEDICARE ==
[2024-10-22 09:11] VITALS: BMI 23.1
[2024-10-22] MEDS ORDERED: VANCOMYCIN HCL 1,500 MG in DEXTROSE 5%-WATER - 500 ML IVPB ONE (10:18)
[2024-10-22 10:29] LABS: ABSOLUTE IMMATURE GRANULOCYTES 0.15 x10^3/uL (0.0-0.031); BASOPHILS # 0.05 x10^3/uL (0.01-0.08); EOSINOPHIL % 0.5 % (0.8-7.0); EOSINOPHILS # 0.05 x10^3/uL (0.04-0.54); MCHC 32.6 g/dl (32.3-36.5); MEAN CELL VOLUME 92.6 fl (79.0-92.2); MEAN PLT VOLUME 8.8 fl (9.4-12.4); MONOCYTE # 0.52 x10^3/uL (0.30-0.82); MONOCYTE % 5.0 % (5.3-12.2); RDW 12.8 % (12.2-16.6)
[2024-10-22 11:07] LABS: GLUCOSE,RANDOM 158 mg/dL (74-106)
[2024-10-22 11:10] LABS: CREATININE 1.7 mg/dL (0.55-1.3); SGOT/AST 23 U/L (15-37); SGPT/ALT 31 U/L (13-61)
[2024-10-22 11:11] LABS: TOT PROT 6.4 g/dl (6.4-8.2)
[2024-10-22 11:12] LABS: ALK PHOS 67 U/L (45-117)
[2024-10-22 11:13] LABS: ERYTHROCYTE SEDIMENTATION RATE 34 mm/hr (0-20)
[2024-10-22] MEDS ORDERED: PIPERACILLIN/TAZOB 4.5 GM 4.5 GM/100 ML BAG IVPB ONE (11:30)
[2024-10-22] MEDS: PIPERACILLIN/TAZOB 4.5 GM 4.5 GM in DEXTROSE 5%-WATER 100 ML IVPB ONE (11:39)
[2024-10-22 11:41] LABS: CO2 29 mmol/L (21-32)
[2024-10-22] MEDS: VANCOMYCIN PREMIX 1.5 GM 1,500 MG/300 ML BAG IVPB ONE (12:24)
[2024-10-22] MEDS: CLINDAMYCIN IVPB 300 MG in DEXTROSE 5%-WATER - 48 ML IVPB ONE (12:24)
[2024-10-22] MEDS ORDERED: ALBUTEROL SO4 HFA INHALER IH PRN (12:30)
[2024-10-22] MEDS ORDERED: ACETAMINOPHEN 325 MG TABLET (FP) PO PRN (12:30)
[2024-10-22] MEDS: PIPERACILLIN/TAZOB 4.5 GM 4.5 GM in DEXTROSE 5%-WATER 100 ML IVPB SCH (17:37)
[2024-10-22] MEDS ORDERED: PIPERACILLIN/TAZOB 4.5 GM 4.5 GM in DEXTROSE 5%-WATER 100 ML IVPB SCH (18:00)
[2024-10-22] MEDS: CLINDAMYCIN 600MG PREMIX IVPB 600 MG/50 ML BAG IVPB SCH (18:24)
[2024-10-22] MEDS: FLUTICASONE PROP 0.05% 16 GM NASAL SPRAY NS SCH (21:56)
[2024-10-22] MEDS: TAMSULOSIN HCL 0.4 MG CAP PO ONE (23:33)
[2024-10-23 09:17] LABS: MCHC 32.2 g/dl (32.3-36.5); MEAN CELL VOLUME 93.5 fl (79.0-92.2); MEAN PLT VOLUME 9.3 fl (9.4-12.4); RDW 12.8 % (12.2-16.6)
[2024-10-23 09:43] LABS: CO2 32.0 mmol/L (21-32); GLUCOSE,RANDOM 130.0 mg/dL (74-106)
[2024-10-23 09:46] LABS: CREATININE 1.7 mg/dL (0.55-1.3); SGOT/AST 18.0 U/L (15-37); SGPT/ALT 27.0 U/L (13-61)
[2024-10-23 09:48] LABS: TOT PROT 6.1 g/dl (6.4-8.2)
[2024-10-23 09:49] LABS: ALK PHOS 60.0 U/L (45-117)
[2024-10-23] MEDS: PANTOPRAZOLE 40 MG TABLET PO SCH (10:20)
[2024-10-23] MEDS: VANCOMYCIN/WATER FOR INJ (PEG) 1,000 MG/200 ML BAG IVPB SCH (12:55)
[2024-10-23] MEDS: PIPERACILLIN/TAZOB 2.25 GM 2.25 GM in DEXTROSE 5%-WATER - 50 ML IVPB SCH (14:12)
[2024-10-23] MEDS ORDERED: ALBUTEROL SO4 HFA INHALER IH PRN (17:38)
[2024-10-23] MEDS: HYDROCHLOROTHIAZIDE 12.5 MG CAPSULE (FP) PO SCH (18:31)
[2024-10-23] MEDS: TAMSULOSIN HCL 0.4 MG CAP PO SCH (22:00)
[2024-10-24 09:14] LABS: ABSOLUTE IMMATURE GRANULOCYTES 0.11 x10^3/uL (0.0-0.031); BASOPHILS # 0.09 x10^3/uL (0.01-0.08); EOSINOPHIL % 1.8 % (0.8-7.0); EOSINOPHILS # 0.15 x10^3/uL (0.04-0.54); MCHC 32.5 g/dl (32.3-36.5); MEAN CELL VOLUME 93.2 fl (79.0-92.2); MEAN PLT VOLUME 9.2 fl (9.4-12.4); MONOCYTE # 0.87 x10^3/uL (0.30-0.82); MONOCYTE % 10.2 % (5.3-12.2); RDW 12.8 % (12.2-16.6)
[2024-10-24 09:21] LABS: INR 1.12 (0.83-1.09); PROTHROMBIN TIME (PATIENT) 12.2 SEC (9.7-13.0)
[2024-10-24 09:24] LABS: ACTIVATED PTT 27.6 SECONDS (25.2-36.5)
[2024-10-24 09:54] LABS: CO2 32.0 mmol/L (21-32); GLUCOSE,RANDOM 150.0 mg/dL (74-106)
[2024-10-24 09:55] LABS: SGPT/ALT 31.0 U/L (13-61); TOT PROT 6.9 g/dl (6.4-8.2)
[2024-10-24 09:56] LABS: ALK PHOS 69.0 U/L (45-117)
[2024-10-24 09:57] LABS: CREATININE 1.7 mg/dL (0.55-1.3)
[2024-10-24 10:00] LABS: SGOT/AST 20.0 U/L (15-37)
[2024-10-24] MEDS ORDERED: GENTAMICIN SO4 0.1% TOPICAL OINTMENT 15 GM/TUBE TUBE TP SCH (22:00)
[2024-10-25] MEDS: COLLAGENASE CLOSTRIDIUM HIST. 30 GRAMS TUBE TP SCH (15:41)
[2024-10-26 09:01] LABS: MCHC 32.0 g/dl (32.3-36.5); MEAN CELL VOLUME 93.2 fl (79.0-92.2); MEAN PLT VOLUME 9.1 fl (9.4-12.4); RDW 12.8 % (12.2-16.6)
[2024-10-26 09:49] LABS: CO2 34.0 mmol/L (21-32); GLUCOSE,RANDOM 155.0 mg/dL (74-106)
[2024-10-26 09:52] LABS: CREATININE 1.7 mg/dL (0.55-1.3); SGOT/AST 18.0 U/L (15-37); SGPT/ALT 30.0 U/L (13-61)
[2024-10-26 09:55] LABS: ALK PHOS 61.0 U/L (45-117); TOT PROT 6.5 g/dl (6.4-8.2)
[2024-10-26] MEDS ORDERED: LIDOCAINE HCL 1%, 10 MG/ML (20ML VIAL) ONE (14:34)
[2024-10-26] MEDS ORDERED: DEXAMETHASONE SOD PHOSPHATE 4 MG/1 ML VIAL ONE (14:35)
[2024-10-26] MEDS ORDERED: BUPIVACAINE HCL/PF 0.5% (5MG/ML) 10 ML VIAL ONE (14:35)
[2024-10-26] MEDS ORDERED: GENTAMICIN SO4 80 MG/2 ML VIAL ONE ×2 (15:48→17:21)
[2024-10-26] MEDS ORDERED: MIDAZOLAM HCL 2 MG/2 ML SINGLE DOSE VIAL ONE ×2 (15:48→16:52)
[2024-10-26] MEDS ORDERED: PROPOFOL 20 ML ONE (15:48)
[2024-10-26] MEDS ORDERED: HEPARIN NA (PORCINE) 5,000 UNITS/ML 1ML VIAL ONE (15:49)
[2024-10-26] MEDS ORDERED: PAPAVERINE HCL 30 MG/1 ML 10 ML VIAL NR ONE (15:49)
[2024-10-26] MEDS ORDERED: LIDOCAINE HCL/PF 2% SDV 5ML VIAL ONE (16:51)
[2024-10-26] MEDS ORDERED: PROPOFOL 60 ML ONE (16:52)
[2024-10-26] MEDS: LIDOCAINE HCL 1%, 10 MG/ML (20ML VIAL) NR ONE (17:17)
[2024-10-26] MEDS: BUPIVACAINE HCL/PF 0.5% (5 MG/ML) 30 ML VIAL IJ ONE (17:17)
[2024-10-26] MEDS ORDERED: VANCOMYCIN 1,000 MG VIAL (RESTRICTED TO ID ONLY) ONE (17:21)
[2024-10-26] MEDS ORDERED: ONDANSETRON 4 MG/2 ML VIAL ONE (17:24)
[2024-10-26] MEDS ORDERED: KETOROLAC TROMETHAMINE 30 MG/1 ML VIAL ONE (17:24)
[2024-10-26] MEDS: GENTAMICIN SO4 80 MG/2 ML VIAL IVPB ONE (17:37)
[2024-10-26] MEDS: VANCOMYCIN 1,000 MG VIAL (RESTRICTED TO ID ONLY) IVPB ONE (17:38)
[2024-10-26] MEDS ORDERED: ONDANSETRON 4 MG/2 ML VIAL IVPUSH PRN ×2 (17:57→18:04)
[2024-10-26] MEDS ORDERED: ACETAMINOPHEN 1000 MG/100 ML BAG IVPB ONE (17:57)
[2024-10-26] MEDS ORDERED: PROMETHAZINE HCL 25 MG/1 ML VIAL IVPB PRN ×2 (17:57→18:04)
[2024-10-26] MEDS ORDERED: LACTATED RINGERS SOLUTION 1,000 ML IV SCH (18:00)
[2024-10-26] MEDS ORDERED: ALBUTEROL SO4 HFA INHALER IH PRN (18:04)
[2024-10-26] MEDS: LACTATED RINGERS SOLUTION 1,000 ML IV SCH (18:10)
[2024-10-26] MEDS ORDERED: ACETAMINOPHEN INJECTION 100 ML ONE (18:11)
[2024-10-26] MEDS: ACETAMINOPHEN 1000 MG/100 ML BAG IVPB ONE (18:13)
[2024-10-26] MEDS: PIPERACILLIN/TAZOB 2.25 GM 2.25 GM in DEXTROSE 5%-WATER - 50 ML IVPB SCH (21:55)
[2024-10-26] MEDS: TAMSULOSIN HCL 0.4 MG CAP PO SCH (21:55)
[2024-10-26] MEDS: FLUTICASONE PROP 0.05% 16 GM NASAL SPRAY NS SCH (21:56)
[2024-10-27] MEDS: PANTOPRAZOLE 40 MG TABLET PO SCH (10:49)
[2024-10-27] MEDS: HYDROCHLOROTHIAZIDE 12.5 MG CAPSULE (FP) PO SCH (10:49)
[2024-10-28] MEDS ORDERED: PIPERACILLIN/TAZOBACTAM 2.25 GM VIAL IVPB ONE (03:53)
[2024-10-28 10:36] LABS: MCHC 32.4 g/dl (32.3-36.5); MEAN CELL VOLUME 92.0 fl (79.0-92.2); MEAN PLT VOLUME 9.3 fl (9.4-12.4); RDW 12.7 % (12.2-16.6)
[2024-10-28 11:01] LABS: CO2 33.0 mmol/L (21-32); GLUCOSE,RANDOM 254.0 mg/dL (74-106)
[2024-10-28 11:04] LABS: SGPT/ALT 24.0 U/L (13-61)
[2024-10-28 11:06] LABS: CREATININE 1.5 mg/dL (0.55-1.3); SGOT/AST 13.0 U/L (15-37); TOT PROT 5.7 g/dl (6.4-8.2)
[2024-10-28 11:07] LABS: ALK PHOS 52.0 U/L (45-117)
[2024-10-28] MEDS: ACETAMINOPHEN 325 MG TABLET (FP) PO PRN (15:21)
[2024-10-28] MEDS: RIVAROXABAN 20 MG TABLET PO SCH (17:14)
[2024-10-28] MEDS: PIPERACILLIN/TAZOB 4.5 GM 4.5 GM in DEXTROSE 5%-WATER 100 ML IVPB SCH (21:15)
[2024-10-31 13:10] VITALS: BP 135/68; PULSE 71; RESP 16; TEMP 97.5
== END 2024-10-31 14:38 | disposition home health service (06) | DRG 571 ==
LOC: JER 09:06 → JERBED 11:08 → J6S 14:46
PROVIDERS: ADMIT Family Medicine; ATTEND Family Medicine
PROC: 0JBR0ZZ Excision of Left Foot Subcutaneous Tissue and Fascia, Open Approach (ICD-10-PCS; principal; 2024-10-26 14:30)
PROC: 0QBR0ZX Excision of Left Toe Phalanx, Open Approach, Diagnostic (ICD-10-PCS; 2024-10-26 14:30)
DX: S91.302A Unspecified open wound, left foot, initial encounter (principal); L03.116 Cellulitis of left lower limb; X58.XXXA Exposure to other specified factors, initial encounter; Y93.9 Activity, unspecified; Y92.89 Other specified places as the place of occurrence of the external cause; Y99.9 Unspecified external cause status; E11.621 Type 2 diabetes mellitus with foot ulcer; J44.9 Chronic obstructive pulmonary disease, unspecified; I12.9 Hypertensive chronic kidney disease with stage 1 through stage 4 chronic kidney disease, or unspecified chronic kidney disease; E11.42 Type 2 diabetes mellitus with diabetic polyneuropathy; E11.22 Type 2 diabetes mellitus with diabetic chronic kidney disease; N18.9 Chronic kidney disease, unspecified; L97.529 Non-pressure chronic ulcer of other part of left foot with unspecified severity; D86.9 Sarcoidosis, unspecified
CPT/HCPCS: 36415; 71046-TC-FY; 73630-TC-LT; 73718-TC-LT; 80053; 82962; 83735; 85025; 85027; 85610; 85651; 85730; 86140; 87040; 87070; 87075; 87205; 88304-TC; 93005; 93010; 93926-TC; 93970-TC; 94760; 99285-25; C1713